=== PATIENT | male | born 1965 | race Caucasian/White ===

== ENCOUNTER 2022-02-28 05:51 | Inpatient (IN) ==
--- NOTE | 2022-02-14 15:44 | PAT Medication Instructions ---
Medication Instructions Date of Service February 14, 2022 Home Medications amlodipine 10 mg tablet 10 mg PO QAM atorvastatin 80 mg tablet 80 mg PO PM clopidogrel 75 mg tablet 75 mg PO QAM metoprolol tartrate 25 mg tablet 25 mg PO BID pantoprazole 40 mg tablet,delayed release 40 mg PO QAM potassium chloride 20 mEq tablet,extended release 20 meq PO QPM ASK your prescriber and surgeon clopidogrel 75 mg tablet 75 mg PO QAM Take morning of surgery With a small sip of water, OTHERWISE NOTHING TO EAT OR DRINK AFTER MIDNIGHT: amlodipine 10 mg tablet 10 mg PO QAM metoprolol tartrate 25 mg tablet 25 mg PO BID pantoprazole 40 mg tablet,delayed release 40 mg PO QAM Take evening before surgery atorvastatin 80 mg tablet 80 mg PO PM metoprolol tartrate 25 mg tablet 25 mg PO BID potassium chloride 20 mEq tablet,extended release 20 meq PO QPM Other Notes If you have any questions please call us at [phone] or [phone] or [phone] or [phone]
--- NOTE | 2022-02-22 14:26 | Anesthesiology Consultation ---
Date of Service February 22, 2022 Assessment & Plan (1) Encounter for pre-operative examination: - COVID screening: Per assessment on 02/22: No known COVID-19 positive contacts or current COVID-19 related symptoms. Travel screen negative. At surgeon discretion if preop Covid testing being done. - Cardiology office visit (01/24/22): "Coronary artery disease.. ANDREY on 09/21/2013 and distal LAD 2 stents.. ANDREY on 03/20/2017.. Peripheral arterial disease with worsening claudication S/P BUSINESS ANALYST CONSULTANT/stent to left common iliac artery on 04/18/17 and BUSINESS ANALYST CONSULTANT to right common iliac and external iliac arteries on 11/23/17. Balloon angioplasty to the ostium of the left superficial femoral artery 02-22-18. Now with occluded distal abdominal aorta and bilateral iliacs, being evaluated for aortic bifemoral bypass surgery.. Considered at a low to intermediate cardiac risk for aortobifemoral bypass surgery" - Plavix instructions per surgeon/cardio Chart Review Chart Review: Acceptable Risk for Surgery and Patient seen in Pre Admission Testing Teaching & Discussion Pre-Anesthesia Teaching/Discussion Notes: Instructed NPO after midnight before surgery,except medications with 15 cc of water. Medication instructions provided according to the PAT guidelines. History Surgery Operation Date: 02/28/22 08:00 Proposed Procedures p Aorto Bifemoral Bypass - Joey Pennington MD Height/Weight Height: 5 ft 8 in Weight: 68.4 kg Allergies Allergy/AdvReac Type Severity Reaction Status Date / Time No Known Allergies Allergy Verified 02/13/22 13:53 Medications Home Medications Medication Instructions Recorded Confirmed Last Taken amlodipine 10 mg tablet 10 mg PO QAM 02/13/22 02/13/22 Unknown atorvastatin 80 mg tablet 80 mg PO PM 02/13/22 02/13/22 Unknown clopidogrel 75 mg tablet 75 mg PO QAM 02/13/22 02/13/22 Unknown metoprolol tartrate 25 mg tablet 25 mg PO BID 02/13/22 02/13/22 Unknown pantoprazole 40 mg tablet,delayed 40 mg PO QAM 02/13/22 02/13/22 Unknown release potassium chloride 20 mEq 20 meq PO QPM 02/13/22 02/13/22 Unknown tablet,extended release Past Medical History Medical History CAD (coronary artery disease) 2014 > 1 stent 2018 (LITZY Parminder) > [address] Morin COPD (chronic obstructive pulmonary disease) Stable History of depression History of gastric ulcer 2013 History of GI bleed 2013 (ASA/gastric ulcer) History of myocardial infarction 2014 HLD (hyperlipidemia) HTN (hypertension) Lung abnormality "spots on lungs" noted years ago, monitored/evaluated by [facility] (under surveillance/stable) PAD (peripheral artery disease) Exercise / Class Metabolic Activity III < 4 Walking/Shop/Light housework Past Family History Family History Other No family history of adverse response to anesthesia Past Surgical History Surgical History History of cardiac catheterization 2013 > 1 stent 2017 (LITZY Parminder) > 2 stents History of esophagogastroduodenoscopy (EGD) History of laparotomy History of revascularization procedure of lower extremity stents to BLLE Social History Smoking Status: Current every day smoker tobacco type: cigarettes Smoking cigarettes per day: 1 ppd Do You Dip or Chew Tobacco: No Hx Alcohol Use: No Hx Substance Use: No substance use type: does not use Review of Systems Patient denies chest pain, shortness of breath, fever, chills, cough, wheezing, palpitations. Physical Exam Vital Signs VITALS BP 135/77 P 92 TEMP 98.5 SP02 95%RA RESP 18 PHYSICAL Full cervical extension range of motion. Full TMJ range of motion. TMD 4 finger breaths Mallampati Score 3 Dentition: several missing Lungs: clear throughout to auscultation Cardiac: regular rate and rhythm, no murmurs noted Spine: normal Carotid arteries: negative bruit Extremities: no edema Large celeste - pt agreeable to trimming, aware further trimming/shaving may be necessary DOS at anesthesiologist discretion Lab Results Anesthesia Preop Results Results Anesthesia Widget: WBC 13.51 K/ul (4.8-10.8) H 02/22/22 Hgb 17.3 g/dl (14.0-18.0) 02/22/22 Hct 49.3 % (40.1-51.0) 02/22/22 Plt 281 K/uL (130-400) 02/22/22 Na 139 mmol/L (136-145) 02/22/22 K 3.6 mmol/L (3.5-5.1) 02/22/22 Cl 104 mmol/L (98-107) 02/22/22 CO2 28 mmol/L (21-32) 02/22/22 BUN 17 mg/dl (6-23) 02/22/22 Creat 0.96 mg/dl (0.6-1.4) 02/22/22 Glucose Level 116 mg/dl (70-99(Fasting)) H 02/22/22 PT 10.1 Seconds (9.0-12.0) 02/22/22 PTT 28.5 Seconds (21.0-31.0) 02/22/22 INR 0.9 (0.9-1.1) 02/22/22 Blood Type O Positive 02/22/22 Antibody Screen NEGATIVE 02/22/22 Testing Electrocardiogram Date: 01/24/22 Sinus rhythm at 95 bpm. Anterior septal infarct. Possible inferior infarct. Chest X-Ray Date: 02/22/22 FINDINGS: No lines and tubes are seen. The cardiomediastinal silhouette is normal. The lungs are clear. No evidence of pleural effusion or pneumothorax. IMPRESSION: No acute chest disease. Echocardiogram Date: 12/13/21 LVEF 60%. Mild cLVH. Severe LAD. Mild TR. Physiologic MI. Stress Test Date: 12/13/21 Type: nuclear Lexiscan stress ECG was inconclusive for myocardial ischemia. No evidence of myocardial ischemia or infarction. LVEF 56%. Other Testing 24 Hour Holter monitor (09/19/21) Rare PAC. Frequent PVCs. No SVT. Sinus tachycardia. No bradycardia, pauses greater than 2 seconds, or high-grade AV block. Nondiagnostic for symptom correlation. Carotid duplex (09/29/21) No hemodynamically significant stenosis seen within either carotid bifurcation region or either proximal ICA. Abdominal aortography (12/13/21) Known right common iliac artery, external iliac artery chronic occlusion constriction of the distal right external iliac artery. Left mid common iliac artery chronic occlusion. Noted to have abdominal aorta 100% chronic occlusion just after the origin of the bilateral renal arteries. Right renal artery has ostial 90% stenosis. Patent left renal artery noted. Recommendation: Recommend to see vascular surgery for evaluation of abdominal aorta occlusion and also iliac artery occlusions. COVID-19 Risk Screen Screening Information COVID-19 Screen Date: 02/22/22 Exposure 21 Days Family/Household +COVID Last 21 Days: No Exposure 10 Days Any COVID Exposure Last 10 Days: No Symptoms Last 10 Days Experienced COVID Sx Last 10 Days: No + COVID 0-90 Days COVID + in Last 0-90 Days: No
[2022-02-28] MEDS ORDERED: CEFAZOLIN 2,000 MG/15 ML SYR IV SCH (06:00)
--- NOTE | 2022-02-28 06:17 | History & Physical Report ---
Date of Service February 28, 2022 Assessment & Plan (1) Terminal aortic occlusion: Plan: Patient is admitted for an aortobifemoral bypass. I have discussed the risks options and benefits of the procedure with the patient. The patient understands the risks options and benefits and agrees to the procedure. History of Present Illness Chief Complaint: Infra renal aortic occlusion Primary Care Provider: NO PCP Mr. Saha is a middle-aged male who presents to Dr. Pennington's vascular surgery clinic today as a new patient in consultation for aortoiliac occlusive disease. Patient states that he has been aware of significant arterial disease since 2018, at which time he underwent angiography with DIDACTIC INSTRUCTOR somewhere in his right lower extremity. Records of this are not available. He states he was able to function after this until earlier this year when he began to notice worsening claudication symptoms particularly in his hips and thighs, as well as numbness. He states at this point on an incline he is only able to walk about 75 feet, and is able to walk further on a flat surface. He finds that this is extremely limiting for his activity level. He has seen his account management specialist who had him undergo angiography, which was unsuccessful in crossing the lesions. He was noted to have complete occlusion of his distal aorta and bilateral iliac arteries, with distal reconstitution. Patient denies rest pain in his feet and toes, as well as any ulcerations or nonhealing wounds on his feet. He denies fever, recent illness, headache, dizziness, chest pain, shortness of breath, abdominal pain, nausea, vomiting, other complaints. Allergies Allergy/AdvReac Type Severity Reaction Status Date / Time No Known Allergies Allergy Verified 02/13/22 13:53 Home Medications Medication Instructions Recorded Confirmed Type amlodipine 10 mg tablet 10 mg PO QAM 02/13/22 02/13/22 History atorvastatin 80 mg tablet 80 mg PO PM 02/13/22 02/13/22 History clopidogrel 75 mg tablet 75 mg PO QAM 02/13/22 02/13/22 History metoprolol tartrate 25 mg tablet 25 mg PO BID 02/13/22 02/13/22 History pantoprazole 40 mg tablet,delayed 40 mg PO QAM 02/13/22 02/13/22 History release potassium chloride 20 mEq 20 meq PO QPM 02/13/22 02/13/22 History tablet,extended release Past Med/Surg History Medical History CAD (coronary artery disease) 2014 > 1 stent 2018 (LITZY Parminder) > [address] Morin COPD (chronic obstructive pulmonary disease) Stable History of depression History of gastric ulcer 2012 History of GI bleed 2013 (ASA/gastric ulcer) History of myocardial infarction 2013 HLD (hyperlipidemia) HTN (hypertension) Lung abnormality "spots on lungs" noted years ago, monitored/evaluated by [facility] (under surveillance/stable) PAD (peripheral artery disease) Surgical History History of cardiac catheterization 2013 > 1 stent 2018 (LITZY Parminder) > 2 stents History of esophagogastroduodenoscopy (EGD) History of laparotomy History of revascularization procedure of lower extremity stents to BLLE Family History Other No family history of adverse response to anesthesia Social History Smoking Status: Current every day smoker Cigarettes Per Day: 1 ppd; Second Hand Exposure: Yes (hx); Do You Dip or Chew Tobacco: No; Tobacco Cessation Education Requested by Patient: No Hx Alcohol Use: No Hx Substance Use: No Preferred Language: Slovenian Communication Ability: Effective 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 Is alert and oriented without any focal deficits. His head is normocephalic and atraumatic. His carotids do not demonstrate a bruit. His heart is regular, his lungs are decreased but clear with coarse breath sounds. His abdomen is protuberant due to body habitus, but is firm and nontender. His brachial and radial pulses are +3. His femoral pulses are nonpalpable, his lower extremity distal pulses are also nonpalpable. He has capillary refill to the toes at 5 to 6 seconds, with continued hair growth on the dorsum of the feet and toes. There were no ulcerations.
[2022-02-28] MEDS ORDERED: HEPARIN (PORCINE) 1000 UNIT/ML 10 ML (CATH LAB USE ONLY) ONE ×2 (07:06→08:48)
[2022-02-28] MEDS ORDERED: THROMBIN FOR SOLN 20000 UNIT KIT ONE (07:06)
[2022-02-28] MEDS ORDERED: GELATIN SPONGE SZ 100 ONE (07:06)
[2022-02-28] MEDS ORDERED: ceFAZolin 330 MG/ML 1 GM VIAL ONE (07:06)
[2022-02-28] MEDS ORDERED: HYDROmorphone INJ 1 MG/ML SYRINGE IV PRN (07:07)
[2022-02-28] MEDS ORDERED: KETOROLAC 30 MG/ML VIAL IV PRN (07:07)
[2022-02-28] MEDS ORDERED: ONDANSETRON INJ 2 MG/ML 2 ML VIAL IV PRN ×2 (07:07→09:57)
[2022-02-28] MEDS ORDERED: LABETALOL HCL IV 5 MG/ML 20ML IV PRN (07:07)
[2022-02-28] MEDS ORDERED: ATROPINE SULFATE 0.1 MG/ML 10ML SYR IV PRN (07:07)
[2022-02-28] MEDS ORDERED: ePHEDrine sulfate 50 MG/ML AMP IV PRN (07:07)
[2022-02-28] MEDS ORDERED: ACETAMINOPHEN 1000 MG/100 ML IV IV ONE (07:15)
[2022-02-28] MEDS ORDERED: MIDAZOLAM HCL 1 MG/ML 2ML VIAL ONE (07:26)
[2022-02-28] MEDS ORDERED: fentaNYL citrate 100 MCG/2 ML VIAL ONE ×2 (07:26→08:46)
--- NOTE | 2022-02-28 07:36 | History & Physical Bridge Note ---
Date of Service February 28, 2022 History & Physical Bridge Note I have examined the patient, reviewed the History & Physical and in the interval since the performance of the History & Physical I have noted the following changes of clinical significance: no changes noted
[2022-02-28] MEDS ORDERED: DEXAMETHASONE SOD INJ 4 MG/ML VIAL ONE (09:21)
[2022-02-28] MEDS ORDERED: ONDANSETRON INJ 2 MG/ML 2 ML VIAL ONE (09:21)
[2022-02-28] MEDS ORDERED: LIDOCAINE 2% MPF LOCAL 5 ML VIAL INFIL ONE (09:21)
[2022-02-28] MEDS ORDERED: PHENYLEPHRINE HCL 10 MG/ML VIAL ONE (09:21)
[2022-02-28] MEDS ORDERED: NITROGLYCERIN/D5W 100 MCG/ML BTL ONE (09:21)
[2022-02-28] MEDS ORDERED: PROPOFOL IV EMULSION 10 MG/ML 20 ML VIAL IV ONE (09:21)
[2022-02-28] MEDS ORDERED: ROCURONIUM BROMIDE 10 MG/ML 5 ML VIAL IV ONE (09:21)
[2022-02-28] MEDS ORDERED: HEPARIN SOD (PORCINE) 1000 UNIT/ML ONE (09:22)
[2022-02-28] MEDS ORDERED: oxyCODONE/ACETAMINOPHEN 5mg/325mg TAB PO PRN (09:57)
--- NOTE | 2022-02-28 10:03 | Post Operative Brief Note ---
Immediate Post Op Note v1 Date of Surgery February 28, 2022 Pre & Post Diagnosis Operation Date: 02/28/22 08:00 Pre-Op Diagnosis: (1) Terminal aortic occlusion Post-Op Diagnosis: (1) Terminal aortic occlusion I identified the patient and participated in the time-out.: Yes Procedure Operation Date: 02/28/22 08:00 Actual Procedures p Exploratory Laparotomy(Not Applicable) - Joey Pennington MD Surgeon Joey Pennington MD Access Services Librarian MD Juliocesar L.Minarchick,PAC Estimated Blood Loss 20 Findings Consistent with Post-Op Diagnosis Drains Spivey Catheter Anesthesia Type General Complications none Disposition Accompanied Patient To Recovery: No Disposition: Recovery Room
[2022-02-28] MEDS ORDERED: HYDROmorphone INJ 2 MG/ML SYR/VIAL ONE ×2 (10:14→10:19)
--- NOTE | 2022-02-28 11:50 | Anesthesiology Progress Note ---
Date of Service February 28, 2022 Anesthesia Post Procedure Vital Signs Vital Signs: Temp Pulse Resp BP BP BP Pulse Ox 02/28/22 11:35 87 13 145/66 H 146/83 H 90 02/28/22 11:25 87 17 143/66 H 142/83 H 90 02/28/22 11:15 87 18 151/70 H 149/87 H 92 02/28/22 11:05 88 11 L 157/73 H 145/85 H 91 02/28/22 10:55 87 11 L 160/72 H 141/85 H 90 02/28/22 10:45 87 13 146/69 H 146/69 H 92 02/28/22 10:35 87 17 171/73 H 169/87 H 95 02/28/22 10:25 90 16 180/77 H 174/98 H 94 02/28/22 10:18 36.5 C 94 H 21 175/75 H 187/92 H 95 02/28/22 06:30 36.8 C 90 20 158/92 H 161/97 H 94 O2 Del Method O2 Flow Rate 02/28/22 11:35 Nasal Cannula 4 02/28/22 11:25 Nasal Cannula 4 02/28/22 11:15 Nasal Cannula 6 02/28/22 11:05 Nasal Cannula 6 02/28/22 10:55 Oxymask 6 02/28/22 10:45 Oxymask 6 02/28/22 10:35 Oxymask 15 02/28/22 10:25 Oxymask 15 02/28/22 10:18 Oxymask 15 02/28/22 06:30 Room Air Pain Intensity Abdomen: Pain Intensity: 9 Transfer of Care Handoff Completed per policy Notes Mental Status: alert / awake / arousable Patient Amnestic to Procedure: Yes Nausea / Vomiting: adequately controlled Pain: adequately controlled Airway Patency, RR, SpO2: stable & adequate BP & HR: stable & adequate Hydration State: stable & adequate Anesthetic Complications: no major complications apparent
[2022-02-28] MEDS ORDERED: LACTATED RINGER'S 1,000 ML IV SCH (13:15)
[2022-02-28] MEDS: ceFAZolin 2000MG 2,000 MG/15 ML SYR IV SCH ×2 (17:23→19:54)
[2022-02-28] MEDS: MoRPHine SULFATE 4 MG/ML 1 ML CARP\\VIAL IV PRN ×2 (17:41→20:00)
[2022-02-28] MEDS: D5W AND 1/2NSS 1,000 ML IV SCH ×2 (18:42→18:43)
[2022-02-28] MEDS: NICOTINE 21 MG/24 HR TDSY TD SCH (19:54)
[2022-03-01] MEDS: D5W AND 1/2NSS 1,000 ML IV SCH ×3 (02:46→17:00)
[2022-03-01] MEDS: NICOTINE 21 MG/24 HR TDSY TD SCH (09:41)
[2022-03-01] MEDS: MoRPHine SULFATE 4 MG/ML 1 ML CARP\\VIAL IV PRN ×3 (09:43→20:56)
--- NOTE | 2022-03-01 16:08 | Surgery Progress Note ---
Date of Service March 01, 2022 Assessment & Plan (1) S/P exploratory laparotomy: Plan: Patient doing well post ex lap. Will start suppressive antibiotic therapy. Will switch to a low na, full liquid diet to help with swallowing. Will d/c once tolerating reg diet and incisional pain controlled. Admission and Anticipated Discharge Date Admission Date: February 28, 2022 Subjective Patient up and sitting in chair. Complains of sore throat and cramping of abd wall muscles. Has difficulty swallowing secondary to his sore throat. Physical Exam Constitutional: WD/WN, vitals as above Respiratory: normal respiratory effort; no respiratory distress Auscultation: lungs clear to auscultation bilaterally Cardiovascular: RRR, no murmur, no edema Extremities: + abnormal capillary refill (decreased) Gastrointestinal (Abdomen): Inspection/Auscultation: + abdomen distended (but appears baseline) Percussion/Palpation: + abdomen tender and abdomen soft Musculoskeletal: no cyanosis or clubbing, extremities motor strength 5/5 Skin: + incision (dressing intact) Neurologic: CN's II-XI intact bilaterally and moves all extremities Psychiatric: Orientation: alert and oriented x 3 Results & Data ([facility]) Vital Signs (Past 12 Hours) Vital Signs Temp Pulse Resp BP Pulse Ox O2 Del Method O2 Flow Rate 03/01/22 15:30 36.9 C 123 H 18 169/84 H 91 Nasal Cannula 2 03/01/22 10:14 36.8 C 106 H 16 154/79 H 93 Oxymask 2 03/01/22 07:47 Oxymask 4 03/01/22 06:55 36.9 C 105 H 16 161/82 H 94 Oxymask 4
[2022-03-01] MEDS: SULFAMETHOXAZOLE/TRIMETHOPRIM DS 800/160MG TAB PO SCH (21:03)
[2022-03-02] MEDS: D5W AND 1/2NSS 1,000 ML IV SCH ×2 (00:29→08:15)
[2022-03-02] MEDS: MoRPHine SULFATE 4 MG/ML 1 ML CARP\\VIAL IV PRN ×2 (03:09→05:19)
[2022-03-02] MEDS ORDERED: FUROSEMIDE INJ 20 MG/2 ML VIAL IV STA (08:01)
[2022-03-02] MEDS: SULFAMETHOXAZOLE/TRIMETHOPRIM DS 800/160MG TAB PO SCH (08:15)
[2022-03-02] MEDS: NICOTINE 21 MG/24 HR TDSY TD SCH (08:15)
[2022-03-02 09:00] LABS: Calcium 8.1 mg/dl (8.5-10.1); Creatinine Clr Calc Pharmacy 98.6 ml/min; Est GFR (African American) 114.9 ml/min; Est GFR (Non-African American) 99.2 ml/min; Magnesium 1.3 mg/dl (1.7-2.4); Phosphorus 3.1 mg/dl (2.5-4.9); Potassium 3.1 mmol/L (3.5-5.1)
[2022-03-02] MEDS ORDERED: traMADol HCL 50 MG TABLET PO PRN (09:10)
[2022-03-02 09:42] LABS: Hematocrit (blood only) 46.4 % (40.1-51.0); Mean Corpuscular Hemoglobin 28.9 pg (25.0-34.0); Mean Corpuscular Hgb Conc 34.5 g/dL (32.0-36.0); Mean Corpuscular Volume 83.8 fL (80.0-100.0); Mean Platelet Volume 10.8 fL (9.4-12.4); Platelet Count 209 K/uL (130-400); RDW Coefficient of Variation 14.3 % (11.5-14.5); RDW Standard Deviation 43.6 fL (36.4-46.3); Red Blood Count 5.54 M/uL (4.63-6.08); White Blood Count 24.65 K/ul (4.8-10.8)
[2022-03-02] MEDS ORDERED: POTASSIUM CHLORIDE / WTR 10 MEQ/100 ML PLCT IV ONE (09:44)
[2022-03-02] MEDS ORDERED: POTASSIUM CHLORIDE CRTAB 20 MEQ TABCR PO STA (09:44)
[2022-03-02] MEDS: MAGNESIUM SULFATE / D5W 1 GM/100 ML BAG IV SCH ×5 (09:56→21:38)
--- NOTE | 2022-03-02 10:03 | XRay Report ---
SINGLE VIEW CHEST CLINICAL HISTORY: Respiratory failure. FINDINGS: An AP, portable, upright chest radiograph is compared to study dated 02/22/2022. The cardiom ediastinal silhouette is top normal for projection. Small pleural effusions are suspected. Airspace o pacities are seen throughout both lungs, most confluent at the lung bases. No pneumothorax is seen. T he skeletal structures are osteopenic. The bony thorax is grossly intact. IMPRESSION: Airspace opacities are seen throughout both lungs, most confluent at the lung bases. This could represent pulmonary edema and/or multifocal pneumonia. Clinical correlation will be required a nd radiographic follow-up to resolution is recommended. ACT 112: Negative or not required by law. Electronically signed by: Orlando Cormier M.D. 03/02/2022 10:02 AM
[2022-03-02] MEDS ORDERED: OPTIRAY 320 500ml IV ONE (10:13)
[2022-03-02 10:14] LABS: Basophils # (auto) 0.04 K/uL (0-0.2); Basophils % (auto) 0.2 %; Echinocytes 2+; Eosinophils # (auto) 0.01 K/uL (0-0.50); Immature Granulocytes # (auto) 0.14 K/uL (0.00-0.02); Immature Granulocytes % (auto) 0.6 %; Lymphocytes # (auto) 0.89 K/uL (1.2-3.4); Lymphocytes % (auto) 3.6 %; Monocytes # (auto) 1.34 K/uL (0.24-0.82); Monocytes % (auto) 5.4 %; Neutrophils # (auto) 22.23 K/uL (1.4-6.5); Neutrophils % (auto) 90.2 %
--- NOTE | 2022-03-02 10:49 | CT Scan Report ---
CHEST CTA for PULMONARY ARTERIES CT DOSE: 491.90 mGy.cm HISTORY: Respiratory failure. Shortness of breath. TECHNIQUE: Multiaxial CT images of the chest were performed following the intravenous administration of contrast to evaluate the pulmonary arteries. Maximal intensity projection images were also obtaine d. A dose lowering technique was utilized adhering to the principles of ALARA. COMPARISON STUDY: None. FINDINGS: Limited views of the upper abdomen demonstrate a normal liver and spleen. Normal esophagus. The thyroid gland enhances normally. No pleural or pericardial effusions. The heart is borderline en larged. A few prominent right hilar lymph nodes measure subcentimeter in short axis diameter. No medi astinal or left hilar lymphadenopathy. No suspicious lytic or blastic osseous lesions. Normal caliber thoracic aorta with no evidence for a dissection. Nondiagnostic evaluation within the majority of th e segmental and subsegmental pulmonary arteries due to the respiratory motion artifact. Otherwise, no definite filling defects within the remaining pulmonary arteries to suggest a pulmonary embolus. No pneumothorax. The central airways are patent. Areas of dense consolidation within the base the right middle lobe and right lower lobe. There are patchy consolidative airspace opacities within the base o f the left lower lobe. There are upper lobe predominant groundglass airspace opacities with interlobu lar septal thickening demonstrating crazy paving pattern. IMPRESSION: 1. No evidence for a pulmonary embolus with limitations as described above. 2. Bibasilar consolidative airspace opacities most pronounced within the right lung may represent a c ombination of atelectasis and pneumonia. 3. Upper lobe predominant groundglass airspace opacities with interstitial thickening demonstrating a crazy paving pattern. This could be due to pulmonary edema/ARDS, an atypical pneumonia, or pulmonary hemorrhage. ACT 112: Negative or not required by law. Electronically signed by: Enoch Santiago M.D. 03/02/2022 10:47 AM
[2022-03-02] MEDS ORDERED: IPRATROPIUM BROMIDE NEB SOLN 0.02% 2.5 ML VIAL NEB STA (11:01)
--- NOTE | 2022-03-02 11:01 | Consultation ---
Date of Consultation March 02, 2022 Assessment & Plan (1) Acute respiratory failure with hypoxia: CXR & CTA chest reviewed. Diffuse b/l infiltrates - acute pulmonary edema vs b/l pneumonia (e.g. aspiration) vs ARDS vs combination of factors. No obvious PE although images were suboptimal. Diurese. Zosyn x 1 now; obtain blood cultures prior. Defer ongoing IV abx selection to ICU attending. CPAP. Supportive care. Tx to ICU for ongoing care. Appreciate ICU support. s/p lasix this am; defer additional doses to ICU attending. Check ABG. Check lactate. Check procalcitonin, blood cultures. Tx to ICU. care d/w Dr Vicente. (2) Acute pulmonary edema: acute diastolic CHF. had echo 12/13/21 through [facility] (see scanned report) showing EF 60% with normal valve function. he has already diuresed very nicely - 1500cc+ of urine with lasix 20mg IV x 1. defer additional diuresis to ICU attending. consider limited echo to recheck LV function. (3) Sepsis: suspected 2nd to pneumonia blood cx's now broad-spectrum IV antibiotics (4) S/P exploratory laparotomy: POD #[address] Pennington. ex lap done due to occluded aorta. (5) Hypokalemia: replace IV + PO serial labs replace low mag (6) Hypomagnesemia: mag sulfate 3gm x 1 now serial labs (7) Tachycardia: sinus 2nd to acute respiratory failure no evidence of PEs H/H stable (8) CAD (coronary artery disease): Lexiscan [facility]see scanned documents) was negative for myocardial ischemia. Check HS trop now. EKG w/o ischemic changes. (9) COPD (chronic obstructive pulmonary disease): consider steroid therapy but defer to ICU attending cont bronchodilators some of the wheezing could be pulmonary edema as well (10) HTN (hypertension): consider IV hydralazine or IV metoprolol (11) History of myocardial infarction: noted checking HS troponin typically on statin, plavix, metoprolol resume these when able to take PO (12) History of gastric ulcer: IV pepcid or PPI (13) Aortic occlusion: Defer management to primary vascular surgery team. (14) Abdominal distension: ileus? other? start with KUB x-ray now Plan patient is critically ill; transfer to ICU care d/w Dr Josep Vicente, ICU attending total critical care time 60 minutes - management of resp failure, sepsis, etc. History of Present Illness Requesting Physician: Joey Pennington MD Reason for Consultation: hypoxia, tachycardia Attending Physician: Joey Pennington MD History of Present Illness 56yo male with history of CAD s/p acute OK and stent placement, COPD, ongoing tobacco dependence, PAD, HTN, hyperlipidemia, and occluded aorta who presented on 02/28/22 for exploratory laparotomy by Dr Pennington. On POD #1 he reports having had abdominal distension with lack of flatus. He also noted a mild cough which had actually started on the day of surgery. Overnight last pm his cough worsened and this am he developed hypoxia with some dyspnea. He has had poor PO intake/appetite since his surgery. Denies fevers or chills. Denies myalgias. He has had nausea but no vomiting. This am it was noted that his HRs were getting worse and that he was hypoxia to the upper 80s. NC O2 was applied and by the time of my bedside assessment he was satting 88% on 10 L via oxymask. He denied any chest pain. He finds it difficult to breath due to his abdominal pain. He is wheezing. Reports he has smoked 1+ PPD of cigarettes for over 45 years. None of his symptoms remind him of his previous OK. Just prior to my assessment he had received IV lasix 20mg x 1 and just came back from radiology where he underwent CTA chest. He had 500cc of UOP with lasix. Beebe was placed, and within 30 minutes had produced another 1200-1300cc of urine. I ordered CXR which showed diffuse alveolar and interstitial infiltrates. CTA with diffuse b/l infiltrates as well but no obvious PE. I asked respiratory team to place him on CPAP and give atrovent neb x 1. Following CPAP his respiratory distress improved. Allergies Allergy/AdvReac Type Severity Reaction Status Date / Time No Known Allergies Allergy Verified 02/28/22 06:33 Home Medications Medication Instructions Recorded Confirmed Type amlodipine 10 mg tablet 10 mg PO QAM 02/13/22 02/28/22 History atorvastatin 80 mg tablet 80 mg PO PM 02/13/22 02/28/22 History clopidogrel 75 mg tablet 75 mg PO QAM 02/13/22 02/28/22 History metoprolol tartrate 25 mg tablet 25 mg PO BID 02/13/22 02/28/22 History pantoprazole 40 mg tablet,delayed 40 mg PO QAM 02/13/22 02/28/22 History release potassium chloride 20 mEq 20 meq PO QPM 02/13/22 02/28/22 History tablet,extended release ezetimibe 10 mg tablet 10 mg PO DAILY 02/28/22 02/28/22 History nitroglycerin 0.4 mg sublingual 0.4 mg sublingual UD PRN Chest Pain 02/28/22 02/28/22 History tablet (Nitrostat) Patient History Medical History CAD (coronary artery disease) 2014 > 1 stent 2017 ([facility]) > [address] Morin COPD (chronic obstructive pulmonary disease) Stable Emphysema lung History of depression History of gastric ulcer 2012 History of GI bleed 2012 (ASA/gastric ulcer) History of myocardial infarction 2013 HLD (hyperlipidemia) HTN (hypertension) Lung abnormality "spots on lungs" noted years ago, monitored/evaluated by [facility] (under surveillance/stable) PAD (peripheral artery disease) Surgical History History of cardiac catheterization 2013 > 1 stent 2017 ([facility]) > 2 stents History of esophagogastroduodenoscopy (EGD) History of laparotomy History of revascularization procedure of lower extremity stents to BLLE Family History Other No family history of adverse response to anesthesia Social History Smoking Status: Current every day smoker Cigarettes Per Day: 1 ppd; Second Hand Exposure: Yes (hx); Do You Dip or Chew Tobacco: No; Tobacco Cessation Education Requested by Patient: No Hx Alcohol Use: No Hx Substance Use: No Preferred Language: Turkmen Communication Ability: Effective Educational Therapy Teacher Required: No Beliefs That Will Affect Care: None Current Living Situation: Alone Feels Safe at Home: Yes Safety Concerns: Feels Safe At This Time Assistive Devices: None Review of Systems Review of Systems: gen - fatigue, weak, poor appetite; no fever HENT - no sore throat neck - no pain CV - no chest pain pulm - cough, dyspnea, pleuritic type pain GI - severe pain especially with coughing; mild nausea; not passing flatus; distended - beebe removed, was voiding musculo - no myalgias neuro - no headache endo - no diabetes Physical Exam Physical Exam: gen - respiratory distress with tachypnea, coughing, retra ctions; looks quite ill eyes - PERRL HENT - mouth with MMM, poor dentition neck - JVD present, no masses heart - tachycardic, s1 s2, no murmur lungs - diffuse crackles, diffuse wheezes, tachypnea, retractions, accessory muscle use abd - distended, BS+ but decreased, tender, dressings intact over abd wall ext - cool to touch, pulses both feet <1+ b/l neuro - no focal deficits, no facial droop, speech clear, strength 5/5 upper/lower ext skin - perspiring, no rash psych - anxious Results & Data ([facility]) Vital Signs (Past 12 Hours) Vital Signs Temp Pulse Resp BP Pulse Ox O2 Del Method O2 Flow Rate 03/02/22 10:43 88 L Oxymask 8 03/02/22 10:35 37.2 C 141 H 18 151/81 H 85 L Nasal Cannula 6 03/02/22 08:31 Oxymask 5 03/02/22 08:04 139 H 90 Oxymask 5 03/02/22 07:47 37 C 148 H 18 163/78 H 88 L Oxymask 5 03/02/22 05:00 133 H 18 139/76 Oxymask 5 Laboratory Results Laboratory Results - last 24 hr 03/02/22 03/02/22 08:11 08:11 WBC 24.65 H RBC 5.54 Hgb 16.0 Hct 46.4 MCV 83.8 MCH 28.9 MCHC 34.5 RDW Std Deviation 43.6 RDW Coeff of Sondra 14.3 Plt Count 209 MPV 10.8 Immature Gran % (Auto) 0.6 Neut % (Auto) 90.2 Lymph % (Auto) 3.6 Willacy % (Auto) 5.4 Eos % (Auto) 0.0 Baso % (Auto) 0.2 Neut # (Auto) 22.23 H Lymph # (Auto) 0.89 L Willacy # (Auto) 1.34 H Eos # (Auto) 0.01 Baso # (Auto) 0.04 Immature Gran # (Auto) 0.14 H Echinocytes 2+ PT INR APTT PTT Ratio Fibrinogen ABG pH ABG pCO2 ABG pO2 ABG HCO3 ABG O2 Saturation ABG Base Excess Grant Test Oxygen Given Sodium 134 L Potassium 3.1 L Chloride 98 Carbon Dioxide 29 Anion Gap 7 BUN 8 Creatinine 0.80 Est Cr Clr Drug Dosing 98.6 Est GFR ( Amer) 114.9 Est GFR (Non-Af Amer) 99.2 BUN/Creatinine Ratio 10.0 Glucose 167 H POC Glucose Lactate Calcium 8.1 L Ionized Calcium Phosphorus 3.1 Magnesium 1.3 L Total Bilirubin Direct Bilirubin AST ALT Alkaline Phosphatase Troponin I High Sens B-Natriuretic Peptide Total Protein Albumin Procalcitonin Crossmatch 03/02/22 03/02/22 03/02/22 11:17 11:17 11:17 WBC RBC Hgb Hct MCV MCH MCHC RDW Std Deviation RDW Coeff of Sondra Plt Count MPV Immature Gran % (Auto) Neut % (Auto) Lymph % (Auto) Willacy % (Auto) Eos % (Auto) Baso % (Auto) Neut # (Auto) Lymph # (Auto) Willacy # (Auto) Eos # (Auto) Baso # (Auto) Immature Gran # (Auto) Echinocytes PT INR APTT PTT Ratio Fibrinogen ABG pH 7.46 H ABG pCO2 42 ABG pO2 167 H ABG HCO3 30 H ABG O2 Saturation 99.8 H ABG Base Excess 5.4 H Grant Test Pos Oxygen Given 10 L Sodium Potassium Chloride Carbon Dioxide Anion Gap BUN Creatinine Est Cr Clr Drug Dosing Est GFR ( Amer) Est GFR (Non-Af Amer) BUN/Creatinine Ratio Glucose POC Glucose Lactate 1.9 Calcium Ionized Calcium Phosphorus Magnesium Total Bilirubin Direct Bilirubin AST ALT Alkaline Phosphatase Troponin I High Sens 11.6 B-Natriuretic Peptide Total Protein Albumin Procalcitonin Crossmatch 03/02/22 03/02/22 03/02/22 11:17 11:17 12:34 WBC RBC Hgb Hct MCV MCH MCHC RDW Std Deviation RDW Coeff of Sondra Plt Count MPV Immature Gran % (Auto) Neut % (Auto) Lymph % (Auto) Willacy % (Auto) Eos % (Auto) Baso % (Auto) Neut # (Auto) Lymph # (Auto) Willacy # (Auto) Eos # (Auto) Baso # (Auto) Immature Gran # (Auto) Echinocytes PT INR APTT PTT Ratio Fibrinogen ABG pH ABG pCO2 ABG pO2 ABG HCO3 ABG O2 Saturation ABG Base Excess Grant Test Oxygen Given Sodium Potassium Chloride Carbon Dioxide Anion Gap BUN Creatinine Est Cr Clr Drug Dosing Est GFR ( Amer) Est GFR (Non-Af Amer) BUN/Creatinine Ratio Glucose POC Glucose Lactate Calcium Ionized Calcium 1.05 L Phosphorus Magnesium Total Bilirubin Direct Bilirubin AST ALT Alkaline Phosphatase Troponin I High Sens B-Natriuretic Peptide 68 Total Protein Albumin Procalcitonin 0.51 H Crossmatch 03/02/22 03/02/22 12:34 12:34 WBC RBC Hgb Hct MCV MCH MCHC RDW Std Deviation RDW Coeff of Sondra Plt Count MPV Immature Gran % (Auto) Neut % (Auto) Lymph % (Auto) Willacy % (Auto) Eos % (Auto) Baso % (Auto) Neut # (Auto) Lymph # (Auto) Willacy # (Auto) Eos # (Auto) Baso # (Auto) Immature Gran # (Auto) Echinocytes PT 11.9 INR 1.1 APTT 29.9 PTT Ratio 1.1 Fibrinogen 706 H ABG pH ABG pCO2 ABG pO2 ABG HCO3 ABG O2 Saturation ABG Base Excess Grant Test Oxygen Given Sodium Potassium Chloride Carbon Dioxide Anion Gap BUN Creatinine Est Cr Clr Drug Dosing Est GFR ( Amer) Est GFR (Non-Af Amer) BUN/Creatinine Ratio Glucose POC Glucose Lactate Calcium Ionized Calcium Phosphorus Magnesium Total Bilirubin 1.1 H Direct Bilirubin 0.4 H AST 15 ALT 6 L Alkaline Phosphatase 103 Troponin I High Sens B-Natriuretic Peptide Total Protein 6.8 Albumin 3.4 Procalcitonin Crossmatch Diagnostic Findings cxr - my reading - diffuse alveolar and interstitial infiltrates CT chest report - no PEs, but suboptimal for the segmental or subsegmentals, diffuse infiltrates b/l EKG - my reading - sinus tach, no ST changes PG Care Time/CCT Total # of Minutes Spent Total Time Spent with Patient: Total time spent is greater than 50% in coordination of care (as documented) at patient's floor/unit and/or counseling patient: Critical Care Time: Yes Total Critical Care Time: 60 Coding Level of Care Code None Diagnoses Acute respiratory failure with hypoxia J96.01 Acute pulmonary edema J81.0 Sepsis A41.9 S/P exploratory laparotomy Z98.890 Hypokalemia E87.6 Hypomagnesemia E83.42 Tachycardia R00.0 CAD (coronary artery disease) I25.10 COPD (chronic obstructive pulmonary disease) J44.9 HTN (hypertension) I10 History of myocardial infarction I25.2 History of gastric ulcer Z87.11 Aortic occlusion I70.0 Abdominal distension R14.0 Additional Codes Critical Care Time - Critical Care Time: Yes ([id number])
--- NOTE | 2022-03-02 11:34 | Critical Care Consultation ---
Date of Consultation March 02, 2022 Assessment & Plan (1) Sepsis: Pt is a 56 yo male with PMH of AK in 2013 requiring 3 stents, COPD, depression, gastric ulcer w/ subsequent GI bleed, HLD, HTN, and PAD s/p bilateral LE stents presenting to the hospital on 02/28 for an aortobifemoral bypass. Reason critically ill: Pt upgraded to ICU 03/02 d/t tachycardia, increasing oxygen requirement, and sepsis. Neuro: - Pt alert and oriented - No concerns at this time Cardiac: - hx of AK in 2013 s/p 3 stents per pt; takes metoprolol, statin, and clopidogrel at home - hx of significant PAD s/p BL LE stenting - EKGs showed sinus tachycardia w/o concern for ischemia - nuclear stress echo from 12/2021 normal w/ EF 56% - 03/02 echo performed, report pending - tachycardia, most likely secondary to respiratory failure and sepsis - given 5 mg IV lopressor which lowered HR to low 100s - continue to monitor Respiratory: - acute hypoxic respiratory failure - hx of COPD, current every day smoker - CTA and CXR showed pulmonary edema, bibasilar opacities concerning for pneumonia vs. atelectasis, and upper lobe opacities d/t pulmonary edema vs. pneumonia vs. hemorrhage - pt given IV lasix 20 mg w/ considerable diuresis of 700 cc - continue to wean O2 at able GI: NPO diet pending further evaluation of SBO vs. post op ileus Renal/electrolytes: - K 3.1 this AM, given 40 meq PO and 10 meq IV, goal >4.0 - Mg 1.3 this AM, given 3 grams IV, goal >2.0 - Replace electrolytes as needed : - beebe catheter in place Endo: - Follow ICU hyperglycemic protocols Heme: - Stable Hgb and Hct, continue to monitor ID: - pt septic w/ leukocytosis w/ left shift, tachycardia, and concern for intraabdominal infection - concerns for intraabdominal nidus of infection from previous gastric ulcer repair in 2012 - blood and fungal cultures pending - vancomycin started - CTAP w/ contrast pending Lines/IV access: peripheral IV DVT ppx: lovenox 40 mg daily Please refer to Dr. Vicente's documentation for any further recommendations. (2) COPD (chronic obstructive pulmonary disease): (3) S/P exploratory laparotomy: (4) Acute respiratory failure with hypoxia: (5) HTN (hypertension): (6) CAD (coronary artery disease): Supervising Physician Co-Signing Physician Notes Dr. Claire was resident physician during care of patient. I separately evaluated patient for white portions of the history and the exam. I was present during the critical portion of medical decision making, and I discussed the case with the resident. I generally agree with the findings and plan. Patient with SIRS criteria, I am concerned for sepsis secondary to infected foreign body from retained surgical material: Suture from gastric ulcer/exploratory laparotomy in 2012. Dr. Pennington obtain cultures during his ex lap and reported significant amount of adhesions. Patient also significantly at risk for small bowel obstruction versus ileus given recent postop status. Patient was treated with small dose of beta-ratna which improved tachycardia. He does not appear to be significantly volume overloaded during echo. I think it is reasonable to obtain a CT scan of the abdomen pelvis to further evaluate his bowel function and whether there could be a indolent infectious process going on intra-abdominal he. We have started him on broad-spectrum antibiotics Zosyn and vancomycin. I reviewed the CT scan of his lungs, I am suspicious that this is more consistent with atelectasis and chronic COPD changes from ongoing tobacco use and abuse. Continue ongoing cardiac monitoring, echo completed, I observed some findings at the bedside, I do not believe he is significantly volume overloaded, his IVC demonstrate collapsibility and I believe he has normal to hyperdynamic LV function, I am still awaiting the formal echo report. I have personally spent 90 minutes of critical care time in the direct management of this patient. This is a life/limb threatening event. This includes time spent evaluating patient, direct bedside care, chart review, placing orders, interpretation of diagnostic studies, discussion with consultants, patient, and/or family members regarding treatment decisions, as well as other required patient management activities. This time is exclusive of all separately billable procedures, and teaching time and separate from and in addition to any other critical care service time. History of Present Illness Reason for Consultation: tachycardia, increasing O2 requirement Attending Physician: Joey Pennington MD History of Present Illness Pt is a 56 yo male with PMH of AK in 2013 requiring 3 stents, COPD, depression, gastric ulcer w/ subsequent GI bleed, HLD, HTN, and PAD s/p bilateral LE stents presenting to the hospital on 02/28 for an aortobifemoral bypass. An aortobifemoral bypass was unable to be performed d/t concern for infection from previous repair of gastric ulcer. Surgery then proceeded w/ an exploratory laparotomy. Wound samples/cultures from the abdominal infection site are negative for organisms w/ moderate polys. POD 1 he was doing well. He was started on ABX therapy and planned to advance diet as tolerated and control pain before d/c. 03/02: Pt was found to be tachycardic in the 130-140s this morning w/ an increasing oxygen requirement eventually requiring CPAP. Lab work from this morning showed a leukocytosis at 24.65 w/ neutrophilic predominance, mild hyponatremia at 134, hypokalemia at 3.1, and Mg of 1.3. A chest CTA showed bibasilar airspace opacities w/ concern for atelectasis vs. pneumonia; upper lobe opacities were also seen representing pulmonary edema/ARDs vs. pneumonia vs. hemorrhage. CTA neg for PE. CXR confirmed airspace opacities, mostly at lung bases, suggestive of pulmonary edema vs. multifocal pneumonia. KUB suggestive of post op ileus. Additional lab work was obtained showing normal PT/INR and aPTT w/ a high fibrinogen. His ABG showed a metabolic alkalosis, lactate of 1.9, troponin of 11.6, BNP of 68, and procal of 0.51. Pt seen at bedside this afternoon. He describes pain in his abdomen, mostly on the right side. Otherwise he feels alright considering the circumstances. He denies trouble breathing or chest pains. Allergies Allergy/AdvReac Type Severity Reaction Status Date / Time No Known Allergies Allergy Verified 02/28/22 06:33 Home Medications Medication Instructions Recorded Confirmed Type amlodipine 10 mg tablet 10 mg PO QAM 02/13/22 02/28/22 History atorvastatin 80 mg tablet 80 mg PO PM 02/13/22 02/28/22 History clopidogrel 75 mg tablet 75 mg PO QAM 02/13/22 02/28/22 History metoprolol tartrate 25 mg tablet 25 mg PO BID 02/13/22 02/28/22 History pantoprazole 40 mg tablet,delayed 40 mg PO QAM 02/13/22 02/28/22 History release potassium chloride 20 mEq 20 meq PO QPM 02/13/22 02/28/22 History tablet,extended release ezetimibe 10 mg tablet 10 mg PO DAILY 02/28/22 02/28/22 History nitroglycerin 0.4 mg sublingual 0.4 mg sublingual UD PRN Chest Pain 02/28/22 02/28/22 History tablet (Nitrostat) Patient History Medical History CAD (coronary artery disease) 2014 > 1 stent 2018 ([facility]) > [address] Morin COPD (chronic obstructive pulmonary disease) Stable Emphysema lung History of depression History of gastric ulcer 2012 History of GI bleed 2012 (ASA/gastric ulcer) History of myocardial infarction 2013 HLD (hyperlipidemia) HTN (hypertension) Lung abnormality "spots on lungs" noted years ago, monitored/evaluated by [facility] (under surveillance/stable) PAD (peripheral artery disease) Surgical History History of cardiac catheterization 2013 > 1 stent 2017 ([facility]) > 2 stents History of esophagogastroduodenoscopy (EGD) History of laparotomy History of revascularization procedure of lower extremity stents to BLLE Family History Other No family history of adverse response to anesthesia Social History Smoking Status: Current every day smoker Cigarettes Per Day: 1 ppd; Second Hand Exposure: Yes (hx); Do You Dip or Chew Tobacco: No; Tobacco Cessation Education Requested by Patient: No Hx Alcohol Use: No Hx Substance Use: No Preferred Language: Ukrainian Communication Ability: Effective Tankage Grinder Operator Required: No Beliefs That Will Affect Care: None Current Living Situation: Alone Feels Safe at Home: Yes Safety Concerns: Feels Safe At This Time Assistive Devices: None Review of Systems Review of Systems: All systems reviewed & are unremarkable except as noted in HPI & below Physical Exam Constitutional: NAD. Pt still tachycardic in low 100s. Currently O2 sat in low to mid 90s on CPAP FiO2 50, PEEP 12. BP controlled. Neck: No thyromegaly. Trachea midline. Respiratory: Course rhonchi heard in bilateral lung dominguez. No wheezing. Non labored breathing. Cardiovascular: Regular rhythm, tachycardia. No murmur noted. No LE edema. 2+ peripheral pulses. Mild clubbing of bilateral fingernails present. Gastrointestinal (Abdomen): Midline surgical scar intact w/o bleeding, fluid leakage, or pus. Non erythematous. Decreased bowel sounds throughout all quadrants. Soft, slightly distended but this appears to be pt's baseline. Tenderness to superficial palpation R>L. Psychiatric: Alert. Mood and affect congruent. Results & Data Results & Data ([facility]) Vital Signs (Past 12 Hours) Vital Signs Temp Pulse Pulse Resp BP Pulse Ox O2 Del Method 03/02/22 11:21 144 H 18 89 L Oxymask 03/02/22 10:43 88 L Oxymask 03/02/22 10:35 37.2 C 141 H 18 151/81 H 85 L Nasal Cannula 03/02/22 08:31 Oxymask 03/02/22 08:04 139 H 90 Oxymask 03/02/22 07:47 37 C 148 H 18 163/78 H 88 L Oxymask 03/02/22 05:00 133 H 18 139/76 Oxymask O2 Flow Rate 03/02/22 11:21 10 03/02/22 10:43 8 03/02/22 10:35 6 03/02/22 08:31 5 03/02/22 08:04 5 03/02/22 07:47 5 03/02/22 05:00 5 Resident Activity Tracking Resident Involvement: Resident Care Provided Care Provided: Adult Hospital Medicine
[2022-03-02 11:37] LABS: Base Excess ABG 5.4 mEq/L (-9-1.8); HCO3 ABG 30 mmol/L (19-24); Oxygen Saturation ABG 99.8 % (90-95); PCO2 ABG 42 mmHg (35-46); PO2 ABG 167 mmHg (80-95); pH ABG 7.46 (7.35-7.45)
[2022-03-02 11:38] LABS: Allen Test Pos (Pos)
[2022-03-02] MEDS ORDERED: PIPERACILLIN/TAZOBACTAM 3.375 GM in DEXTROSE 5% 100 ML IV ONE (11:45)
--- NOTE | 2022-03-02 12:21 | XRay Report ---
KUB HISTORY: Acute generalized dominant pain and distention with recent surgery s/p ex lap, distension COMPARISON: None. FINDINGS: Midline skin familia. Mildly dilated air-filled loops of small bowel measure up to 3.1 m. A ir is also noted within the nondistended stomach and large bowel. Contrast noted within the renal co llecting systems. Renal shadows are partially obscured by bowel gas. No pneumoperitoneum or pneumatos is. No fracture. IMPRESSION: Air-filled loops of large and small bowel favor a postoperative ileus. Follow-up recommended to exclu de a low-grade obstruction. ACT 112: Negative or not required by law. The above report was generated using voice recognition software. It may contain grammatical, syntax o r spelling errors. Electronically signed by: Pankaj Moran M.D. 03/02/2022 12:19 PM
[2022-03-02] MEDS ORDERED: VANCOMYCIN CONSULT ACTIVE PRN (12:27)
[2022-03-02] MEDS ORDERED: METOPROLOL TARTRATE 1 MG/ML VIAL IV ONE (12:31)
[2022-03-02] MEDS ORDERED: VANCOMYCIN HCL 1,500 MG in SODIUM CHLORIDE 0.9% 500 ML IV STA (12:31)
[2022-03-02] MEDS ORDERED: METOPROLOL TARTRATE 1 MG/ML VIAL IV STA (12:31)
[2022-03-02 13:03] LABS: Albumin Level 3.4 gm/dl (3.4-5.0); Bilirubin Direct 0.4 mg/dl (0-0.2); Bilirubin,Total 1.1 mg/dl (0.2-1.0); Total Protein 6.8 gm/dl (6.0-8.3)
[2022-03-02 13:08] LABS: Fibrinogen 706 mg/dl (184-400); INR 1.1 (0.9-1.1); Partial Thromboplastin Ratio 1.1; Partial Thromboplastin Time 29.9 Seconds (21.0-31.0); Prothrombin Time 11.9 Seconds (9.0-12.0)
--- NOTE | 2022-03-02 13:42 | Pharmacy Report ---
Pharmacy PK ABX Note - Date of Service March 02, 2022 - Assessment and Plan Assessment 56 year old M receiving vancomycin for treatment of sepsis. Pertinent microbiologic data includes: 03/02 blood cultures pending. WBC 24, afebrile, POD #2 ex. lap. Plan Vancomycin * Loading dose: 1500 mg IV x 1 * Maintenance dose: 1000 mg IV every 12 hours * Regimen is predicted to achieve target AUC/PHILLIP of 400-600 mg/L.hr * Level to be ordered if continued >48 hours Pharmacy will continue to follow and will adjust dose/frequency as necessary. Thank you. Pharmacy has transitioned to AUC monitoring for vancomycin. AUC/PHILLIP is the preferred PK/PD target and is associated with decreased risk of nephrotoxicity compared to traditional trough targets.
--- NOTE | 2022-03-02 15:22 | Surgery Progress Note ---
Date of Service March 02, 2022 Assessment & Plan (1) S/P exploratory laparotomy: Plan: Appreciate input from the cableman and the hospitalist. There is no planned surgical intervention for his aortic occlusion at this point in time.In the future he will either need a retroperitoneal approach for an aortobifemoral or of his medical condition does not improve then the axillobifemoral bypass may be the best choice. Admission and Anticipated Discharge Date Admission Date: February 28, 2022 Subjective This patient was sleeping at this time. Earlier today he had shortness of breath requiring increased oxygenation. . He also had Crackles in his lungs. He was seen by the hospitalist and cableman. He was placed on CPAP and moved to the intensive care unit for fluid overload and pneumonia.He did respond to a dose of Lasix with increase in his urine output. Physical Exam Constitutional: + ill appearing Sleeping at this time Respiratory: normal respiratory effort; no respiratory distress Auscultation: + crackles Cardiovascular: Rate/Rhythm: regular rate, regular rhythm and + tachycardic Vessels: femoral pulses present Extremities: + abnormal capillary refill Gastrointestinal (Abdomen): Inspection/Auscultation: + abdomen distended Percussion/Palpation: + abdomen tender and abdomen soft Skin: + incision (Dry and clean) Results & Data ([facility]) Vital Signs (Past 12 Hours) Vital Signs Temp Pulse Pulse Pulse Resp BP BP 03/02/22 15:00 113 H 15 159/92 H 03/02/22 12:05 37.6 C H 03/02/22 14:00 112 H 16 141/86 H 03/02/22 13:00 109 H 21 140/89 03/02/22 12:38 110 H 19 138/83 03/02/22 12:05 141 H 14 155/85 H 03/02/22 12:05 03/02/22 12:57 144 H 03/02/22 11:25 133 H 18 03/02/22 11:21 144 H 18 03/02/22 10:43 03/02/22 10:35 37.2 C 141 H 18 151/81 H 03/02/22 08:31 03/02/22 08:04 139 H 03/02/22 07:47 37 C 148 H 18 163/78 H 03/02/22 05:00 133 H 18 139/76 Pulse Ox O2 Del Method O2 Flow Rate FiO2 03/02/22 15:00 96 CPAP 50 03/02/22 12:05 03/02/22 14:00 97 CPAP 50 03/02/22 13:00 93 CPAP 50 03/02/22 12:38 94 CPAP 50 03/02/22 12:05 82 L CPAP 03/02/22 12:05 CPAP 50 03/02/22 12:57 03/02/22 11:25 93 60 03/02/22 11:21 89 L Oxymask 10 03/02/22 10:43 88 L Oxymask 8 03/02/22 10:35 85 L Nasal Cannula 6 03/02/22 08:31 Oxymask 5 03/02/22 08:04 90 Oxymask 5 03/02/22 07:47 88 L Oxymask 5 03/02/22 05:00 Oxymask 5
[2022-03-02] MEDS: MoRPHine SULFATE 2 MG/ML CARP IV PRN ×3 (15:48→21:39)
--- NOTE | 2022-03-02 16:37 | Billing Data ---
Date of Service March 02, 2022 Coding Level of Care Code Critical Care 1st - mins
--- NOTE | 2022-03-02 17:05 | CT Scan Report ---
CT abd pelvis IV con only CLINICAL HISTORY: concern for SBO, infectious nidus in abdomen. Status post exploratory laparotomy TECHNIQUE: Helical axial images of the abdomen and pelvis were obtained and displayed. Automated dose lowering techniques and/or adjustment according to patient size were utilized for this exam. This e xam was performed with intravenous contrast. CT DOSE: 743.39 mGy.cm COMPARISON: None available at the time of this dictation. FINDINGS: Lower chest: For findings above the diaphragm, please see CT chest performed same day. Liver: Unremarkable. No focal lesions are seen. Gallbladder and biliary tree: Cholelithiasis is seen without evidence of cholecystitis. No intra- or extrahepatic biliary ductal dilation. Pancreas: Unremarkable, no focal lesions. Spleen: Unremarkable. Adrenals: Unremarkable. Kidneys and ureters: Perinephric stranding is noted bilaterally. Bladder: Spivey catheter is seen. Reproductive organs: Unremarkable. Bowel: Diverticulosis is seen without evidence of diverticulitis. The appendix is normal. Lymph nodes Retroperitoneal: Unremarkable. Pelvic: Unremarkable. Mesenteric: Unremarkable. Peritoneum: Soft tissue stranding is seen in the anterior mesentery. There are a few locules of gas a nd fluid are noted along with some free intraperitoneal gas. Vessels: Occlusion of the infrarenal aorta is again seen. Abdominal wall: Bilateral fat-containing inguinal hernias are seen. Median incision is seen. No drain able fluid collection. Bones: Unremarkable. IMPRESSION: 1. Postsurgical changes of exploratory laparotomy are seen. There is mesenteric stranding and a smal l amount of free fluid and air in the peritoneum which may be expected on postoperative day 2. No trevon inable fluid collections are seen. No other acute abnormalities. 2. Redemonstration of occlusion of the infrarenal aorta. ACT 112: Negative or not required by law. Electronically signed by: Shaq Ireland M.D. 03/02/2022 5:03 PM
--- NOTE | 2022-03-02 17:19 | XCELERA ---
[id number] \\[id number]
[2022-03-02] MEDS: ENOXAPARIN INJ 40 MG/0.4 ML SYR SQ SCH (18:06)
[2022-03-02] MEDS: PIPERACILLIN/TAZOBACTAM 3.375 GM CI (over 4 hrs) IV SCH (18:07)
[2022-03-02] MEDS ORDERED: ALBUT/IPRATROP 3MG/0.5MG NEB 3 ML VIAL NEB STA (22:16)
[2022-03-02] MEDS: VANCOMYCIN HCL 1,000 MG in SODIUM CHLORIDE 0.9% 250 ML IV SCH (23:43)
[2022-03-03] MEDS: PIPERACILLIN/TAZOBACTAM 3.375 GM CI (over 4 hrs) IV SCH ×3 (01:56→17:11)
[2022-03-03] MEDS ORDERED: ACETAMINOPHEN 1,000 MG/100 ML VIAL IV PRN (02:10)
[2022-03-03] MEDS: MoRPHine SULFATE 2 MG/ML CARP IV PRN ×3 (04:40→19:46)
[2022-03-03 05:34] LABS: Hematocrit (blood only) 43.4 % (40.1-51.0); Hemoglobin 15.2 g/dl (14.0-18.0); Mean Corpuscular Hemoglobin 29.2 pg (25.0-34.0); Mean Corpuscular Volume 83.3 fL (80.0-100.0); Mean Platelet Volume 10.5 fL (9.4-12.4); Platelet Count 180 K/uL (130-400); RDW Coefficient of Variation 14.2 % (11.5-14.5); RDW Standard Deviation 42.8 fL (36.4-46.3); Red Blood Count 5.21 M/uL (4.63-6.08); White Blood Count 19.04 K/ul (4.8-10.8)
[2022-03-03 05:58] LABS: Basophils # (auto) 0.04 K/uL (0-0.2); Basophils % (auto) 0.2 %; Eosinophils # (auto) 0.01 K/uL (0-0.50); Eosinophils % (auto) 0.1 %; Immature Granulocytes # (auto) 0.15 K/uL (0.00-0.02); Immature Granulocytes % (auto) 0.8 %; Lymphocytes # (auto) 0.79 K/uL (1.2-3.4); Lymphocytes % (auto) 4.1 %; Monocytes # (auto) 0.83 K/uL (0.24-0.82); Monocytes % (auto) 4.4 %; Neutrophils # (auto) 17.22 K/uL (1.4-6.5); Neutrophils % (auto) 90.4 %
[2022-03-03 06:06] LABS: BUN Creatinine Ratio 14.3 (10-20); Calcium 8.2 mg/dl (8.5-10.1); Creatinine Clr Calc Pharmacy 86.1 ml/min; Est GFR (Non-African American) 93.2 ml/min; Magnesium 2.6 mg/dl (1.7-2.4); Potassium 3.6 mmol/L (3.5-5.1)
--- NOTE | 2022-03-03 07:05 | Critical Care Progress Note ---
Date of Service March 03, 2022 Assessment & Plan (1) Sepsis: Plan: Pt is a 56 yo male with PMH of SC in 2013 requiring 3 stents, COPD, depression, gastric ulcer w/ subsequent GI bleed, HLD, HTN, and PAD s/p bilateral LE stents presenting to the hospital on 02/28 for an aortobifemoral bypass. Reason critically ill: Pt upgraded to ICU 03/02 d/t tachycardia, increasing oxygen requirement, and sepsis. Neuro: - Pt alert and oriented - CAM-ICU: negative - No concerns at this time Cardiac: - hx of SC in 2013 s/p 3 stents per pt; takes metoprolol, statin, and clopidogrel at home - hx of significant PAD s/p BL LE stenting - EKGs showed sinus tachycardia w/o concern for ischemia - echo showed EF 55-60% w/ mild LVH - improved tachycardia secondary to respiratory status vs. pain control; added metoprolol 5 mg IV q8hr Respiratory: - acute hypoxic respiratory failure - hx of COPD, current every day smoker - CTA and CXR showed pulmonary edema, bibasilar opacities concerning for pneumonia vs. atelectasis, and upper lobe opacities d/t pulmonary edema vs. pneumonia vs. hemorrhage - repeat CXR today showed no significant change - pt still with increased oxygen requirements, especially w/ minimal activity - duoneb q6hr, OOB TID w/ PT and OT consults to promote lung expansion, chest percussion therapy TID GI: - NPO diet pending further evaluation of SBO vs. post op ileus - CTAP showed mesenteric stranding w/ free fluid and air in the peritoneum consistent w/ POD 2 from ex lap. No acute abnormalities. - PT/OT and OOB TID to promote return of bowel function Renal/electrolytes: - K 3.6 this AM, given 40 meq IV, goal >4.0 - Mg 2.6 this AM - Replace electrolytes as needed : - beebe catheter in place Endo: - Follow ICU hyperglycemic protocols Heme: - Stable Hgb and Hct, continue to monitor ID: - pt's WBC improving - blood and fungal cultures pending - sputum sample not collected yet, consider bronchoscopy if necessary - continue zosyn and vancomycin w/ addition of zithromax - CTAP neg for infectious foci Lines/IV access: peripheral IV DVT ppx: lovenox 40 mg daily Please refer to Dr. Vicente's documentation for any further recommendations. (2) COPD (chronic obstructive pulmonary disease): (3) S/P exploratory laparotomy: (4) Acute respiratory failure with hypoxia: (5) HTN (hypertension): (6) CAD (coronary artery disease): Admission and Anticipated Discharge Date Admission Date: February 28, 2022 Supervising Physician Co-Signing Physician Notes Dr. Claire was resident physician during care of patient. I separately evaluated patient for white portions of the history and the exam. I was present during the critical portion of medical decision making, and I discussed the case with the resident. I generally agree with the findings and plan. Patient with improved SIRS criteria. Hemodynamics slightly improved. Significant desaturation with minimal activity. Acute hypoxic respiratory failure, SA to O2 ratio: 121 Fire order respiratory panel bio [facility]. Echocardiogram reviewed, EKG: QTC appropriate will add Zithromax for atypical coverage. I am more concerned of a pulmonary infection. He has not been able to produce a sputum. Out of bed to chair to encourage both return of bowel function as well as hopefully decreasing atelectasis. May consider an IV assisted bronchoscopy later to obtain sputum specimen. Starting 5 mg metoprolol every 8 hours IV for tachycardia. Aggressive pulmonary toileting with every 6 hours nebs. PT OT consult encourage any activity to expand lungs. I have personally spent 45 minutes of critical care time in the direct management of this patient. This is a life/limb threatening event. This includes time spent evaluating patient, direct bedside care, chart review, placing orders, interpretation of diagnostic studies, discussion with consultants, patient, and/or family members regarding treatment decisions, as well as other required patient management activities. This time is exclusive of all separately billable procedures, and teaching time and separate from and in addition to any other critical care service time. Subjective Pt is a 56 yo male with PMH of SC in 2013 requiring 3 stents, COPD, depression, gastric ulcer w/ subsequent GI bleed, HLD, HTN, and PAD s/p bilateral LE stents presenting to the hospital on 02/28 for an aortobifemoral bypass. Pt upgraded to ICU 03/02 d/t tachycardia, increasing oxygen requirement, and sepsis. Pt seen at bedside this AM. Pt's oxygen dropped throughout the night w/ movements requiring CPAP. Pt states he feels better today than yesterday. He endorses some pain in his abdomen but improved from yesterday. He states his lower back is also painful which he attributes to coughing. His cough was productive overnight but he states not enough for a sputum sample. He has not been passing gas but endorses belching. He denies SOB, difficulty breathing, chest pain, and leg pains. Review of Systems Review of Systems: All systems reviewed & are unremarkable except as noted in HPI & below Physical Exam Constitutional: NAD. Tachycardic throughout the night and into this AM. O2 sat low to mid 90s w/ high flow NC at 30 L/min, FiO2 75. Neck: No thyromegaly. Trachea midline. Respiratory: Decreased breath sounds throughout. Occasional rhonchi heard. No wheezing or crackles appreciated. Non labored breathing. Cardiovascular: Regular rhythm, tachycardia. No murmur noted. No LE edema. Gastrointestinal (Abdomen): Surgical scar healing well w/o dehiscence, drain age, or superficial infection. Soft, decreased BS, tender to palpation mostly in RUQ. Psychiatric: Alert. Mood and affect congruent. Results & Data Results & Data ([facility]) Vital Signs (Past 12 Hours) Vital Signs Temp Pulse Pulse Pulse Resp BP Pulse Ox 03/03/22 06:18 37.2 C 03/03/22 06:00 114 H 15 95 03/03/22 05:00 126 H 20 93 03/03/22 04:00 123 H 22 93 03/03/22 04:00 148/89 H 03/03/22 03:00 125 H 14 93 03/03/22 03:00 160/80 H 03/03/22 02:00 128 H 23 92 03/03/22 02:00 157/84 H 03/03/22 01:00 121 H 23 93 03/03/22 02:21 123 H 22 93 03/03/22 00:00 121 H 18 94 03/03/22 00:00 143/87 H 03/02/22 23:00 123 H 19 98 03/02/22 23:00 157/87 H 03/02/22 22:00 128 H 19 93 03/02/22 21:00 128 H 20 90 03/02/22 21:00 162/83 H 03/02/22 23:10 126 H 22 96 03/02/22 22:30 03/02/22 22:30 128 H 128 H 20 97 03/02/22 21:57 130 H 22 94 03/02/22 20:00 129 H 19 92 03/02/22 20:00 143/92 H 03/02/22 19:00 127 H 21 92 03/02/22 20:00 O2 Del Method O2 Flow Rate FiO2 03/03/22 06:18 03/03/22 06:00 03/03/22 05:00 03/03/22 04:00 03/03/22 04:00 03/03/22 03:00 03/03/22 03:00 03/03/22 02:00 03/03/22 02:00 03/03/22 01:00 03/03/22 02:21 High Flow Nasal Cannula 30 75 03/03/22 00:00 03/03/22 00:00 03/02/22 23:00 03/02/22 23:00 03/02/22 22:00 03/02/22 21:00 03/02/22 21:00 03/02/22 23:10 High Flow Nasal Cannula 30 60 03/02/22 22:30 70 03/02/22 22:30 CPAP 70 03/02/22 21:57 60 03/02/22 20:00 03/02/22 20:00 03/02/22 19:00 03/02/22 20:00 Oxymask 8 Resident Activity Tracking Resident Involvement: Resident Care Provided Care Provided: Adult Hospital Medicine
[2022-03-03] MEDS: POTASSIUM CHLORIDE / WTR 10 MEQ/100 ML PLCT IV SCH ×4 (07:50→11:13)
[2022-03-03] MEDS: NICOTINE 21 MG/24 HR TDSY TD SCH (08:56)
--- NOTE | 2022-03-03 09:14 | Surgery Progress Note ---
Date of Service March 03, 2022 Assessment & Plan (1) S/P exploratory laparotomy: Plan: Appreciate input and care from the director of collections and archives and the hospitalist. Cultures from his abscess demonstrate no growth, however, pt will require abx for 4-6 weeks post op. There is no planned surgical intervention for his aortic occlusion at this point in time. In the future he will either need a retroperitoneal approach for an aortobifemoral or of his medical condition does not improve then the axillobifemoral bypass may be the best choice. Admission and Anticipated Discharge Date Admission Date: February 28, 2022 Subjective 56 yo m POD #3 after aborted attempt at aortobifemoral bypass, seen in f/u today. Pt had increasing oxygen requirements, tachycardia, and hypertension yesterday and was eval by hospitalist and transferred to ICU for monitoring. Fluid overload noted and pt has been diuresed. Pt states he is tired and still has some abd pain, but no nausea or vomiting. Has not been passing flatus, nor had BM since procedure. Review of Systems Review of Systems: All systems reviewed & are unremarkable except as noted in HPI & below Physical Exam Constitutional: NAD, A &O x3. Appears mildly ill. Neck: No thyromegaly. Trachea midline. Respiratory: Decreased breath sounds throughout. Non labored breathing. Cardiovascular: Regular rhythm, tachycardia. No murmur noted. No LE edema. Gastrointestinal (Abdomen): Surgical scar noted. +general tenderness, mild distension, hypoactive BS. Psychiatric: Alert. Mood and affect congruent. Results & Data ([facility]) Vital Signs (Past 12 Hours) Vital Signs Temp Pulse Pulse Pulse Resp BP BP 03/03/22 08:00 115 H 20 125/80 03/03/22 07:00 110 H 22 149/80 H 03/03/22 07:00 36.2 C L 111 H 24 149/86 H 03/03/22 08:00 114 H 03/03/22 08:00 03/03/22 07:49 121 H 16 03/03/22 06:18 37.2 C 03/03/22 06:00 114 H 15 03/03/22 05:00 126 H 20 03/03/22 04:00 123 H 22 03/03/22 04:00 148/89 H 03/03/22 03:00 125 H 14 03/03/22 03:00 160/80 H 03/03/22 02:00 128 H 23 03/03/22 02:00 157/84 H 03/03/22 01:00 121 H 23 03/03/22 02:21 123 H 22 03/03/22 00:00 121 H 18 03/03/22 00:00 143/87 H 03/02/22 23:00 123 H 19 03/02/22 23:00 157/87 H 03/02/22 22:00 128 H 19 03/02/22 23:10 126 H 22 03/02/22 22:30 03/02/22 22:30 128 H 128 H 20 03/02/22 21:57 130 H 22 Pulse Ox O2 Del Method O2 Flow Rate FiO2 03/03/22 08:00 91 03/03/22 07:00 93 03/03/22 07:00 94 High Flow Nasal Cannula 30 75 03/03/22 08:00 03/03/22 08:00 High Flow Nasal Cannula 75 03/03/22 07:49 92 High Flow Nasal Cannula 30 75 03/03/22 06:18 03/03/22 06:00 95 03/03/22 05:00 93 03/03/22 04:00 93 03/03/22 04:00 03/03/22 03:00 93 03/03/22 03:00 03/03/22 02:00 92 03/03/22 02:00 03/03/22 01:00 93 03/03/22 02:21 93 High Flow Nasal Cannula 30 75 03/03/22 00:00 94 03/03/22 00:00 03/02/22 23:00 98 03/02/22 23:00 03/02/22 22:00 93 03/02/22 23:10 96 High Flow Nasal Cannula 30 60 03/02/22 22:30 70 03/02/22 22:30 97 CPAP 70 03/02/22 21:57 94 60
[2022-03-03] MEDS ORDERED: AZITHROMYCIN 1,000 MG in DEXTROSE 5% 250 ML IV ONE (10:01)
--- NOTE | 2022-03-03 10:03 | XRay Report ---
XR chest 1V portable HISTORY: variable oxygen requirement COMPARISON: Chest 03/02/2022. FINDINGS: No pneumothorax. No pleural effusions. Hazy bilateral airspace opacities and interstitial t hickening persists. The heart remains mildly enlarged. No pleural effusions. IMPRESSION: No change in the hazy bilateral airspace opacities with interstitial thickening. This could be due to a pneumonia or pulmonary edema. ACT 112: Negative or not required by law. Electronically signed by: Enoch Santiago M.D. 03/03/2022 10:02 AM
[2022-03-03] MEDS ORDERED: AZITHROMYCIN 500 MG in DEXTROSE 5% 250 ML IV SCH (10:15)
[2022-03-03] MEDS: AZITHROMYCIN 500 MG in DEXTROSE 5% 250 ML IV SCH (10:30)
[2022-03-03] MEDS: METOPROLOL TARTRATE 1 MG/ML VIAL IV SCH ×2 (10:30→17:11)
--- NOTE | 2022-03-03 10:53 | Electrocardiogram Report ---
Test Reason : Blood Pressure : / mmHG Vent. Rate : 135 BPM Atrial Rate : 135 BPM P-R Int : 144 ms QRS Dur : 074 ms QT Int : 278 ms P-R-T Axes : 043 038 034 degrees QTc Int : 417 ms Sinus tachycardia Possible Left atrial enlargement Septal infarct , age undetermined Possible Inferior infarct Abnormal ECG No previous ECGs available Confirmed by Herbert Coy ([id number]) on 03/03/2022 10:53:17 AM Referred By: Joey Pennington Confirmed By:Herbert Coy
--- NOTE | 2022-03-03 11:11 | Electrocardiogram Report ---
Test Reason : Blood Pressure : / mmHG Vent. Rate : 108 BPM Atrial Rate : 108 BPM P-R Int : 134 ms QRS Dur : 084 ms QT Int : 326 ms P-R-T Axes : 058 047 033 degrees QTc Int : 436 ms Sinus tachycardia Anteroseptal infarct (cited on or before 02-MAR-2022) Abnormal ECG When compared with ECG of 02-MAR-2022 09:31, No significant change was found Confirmed by Herbert Coy ([id number] on 03/03/2022 11:11:19 AM Referred By: Joey Pennington Confirmed By:Herbert Coy
[2022-03-03] MEDS: PANTOprazole 40 MG in SYRINGE 0 ML IV SCH (11:13)
[2022-03-03 12:01] LABS: Adenovirus PCR Not Detected (NotDetected); Bordetella parapertussis PCR Not Detected (NotDetected); Bordetella pertussis PCR Not Detected (NotDetected); Chlamydia pneumoniae PCR Not Detected (NotDetected); Coronavirus 229E PCR Not Detected (NotDetected); Coronavirus CoV-2 (COVID19)PCR Not Detected (NotDetected); Coronavirus HKU1 PCR Not Detected (NotDetected); Coronavirus NL63 PCR Not Detected (NotDetected); Coronavirus OC43PCR Not Detected (NotDetected); Human Metapneumovirus PCR Not Detected (NotDetected); Influenza A PCR Not Detected (NotDetected); Influenza B PCR Not Detected (NotDetected); Mycoplasma pneumoniae PCR Not Detected (NotDetected); Parainfluenza Virus 1 PCR Not Detected (NotDetected); Parainfluenza Virus 2 PCR Not Detected (NotDetected); Parainfluenza Virus 3 PCR Not Detected (NotDetected); Parainfluenza Virus 4 PCR Not Detected (NotDetected); Respiratory Syncytial VirusPCR Not Detected (NotDetected); Rhinovirus/Enterovirus PCR Not Detected (NotDetected)
[2022-03-03] MEDS: ALBUT/IPRATROP 3MG/0.5MG NEB 3 ML VIAL NEB SCH ×2 (12:15→19:55)
[2022-03-03] MEDS: VANCOMYCIN HCL 1,000 MG in SODIUM CHLORIDE 0.9% 250 ML IV SCH (12:37)
--- NOTE | 2022-03-03 14:25 | Hospitalist Progress Note ---
Date of Service March 03, 2022 Assessment & Plan (1) Acute respiratory failure with hypoxia: Plan: Acute pulmonary edema + b/l pneumonia. Cannot fully exclude ARDS given CXR appearance and very high HFNC requirements. No obvious PE on CTA Chest yesterday although images were suboptimal. Cont HFNC. Cont broad-spectrum IV abx. Consider additional dose of lasix today. Given his extensive wheezes and COPD- consider IV steroids. (2) Acute pulmonary edema: Plan: acute diastolic CHF - 03/02/22. s/p lasix with copious diuresis. had echo 12/13/21 through [facility] (see scanned report) showing EF 60% with normal valve function. echo here with preserved EF. Consider additional lasix today but defer to pipe cleaning machine operator. (3) Bilateral pneumonia: Plan: leukocytosis modestly improved today. sputum cx collected/pending. remains on significant respiratory support with large amount of HFNC. cxr today noted (diffuse infiltrates b/l). remains on zosyn. vanco + azithromycin. Bio[employer] panel noted to be negative. (4) Sepsis: Plan: 2nd to pneumonia blood cx's remain negative cont broad-spectrum IV antibiotics (5) S/P exploratory laparotomy: Plan: POD #3 - ex lap -- aborted attempt at aortobifemoral bypass. abscess found - culture thus far negative. per vascular will need 4-6 weeks of abx. (6) Hypokalemia: Plan: replaced resolved (7) Hypomagnesemia: Plan: replaced resolved (8) Tachycardia: Plan: sinus 2nd to acute respiratory failure no evidence of PEs H/H stable (9) CAD (coronary artery disease): Plan: Lexiscan nuclear stress test 12/2021 via [facility] (see scanned documents) was negative for myocardial ischemia. Troponin negative - no evidence of ACS. (10) COPD (chronic obstructive pulmonary disease): Plan: consider steroid therapy but defer to ICU attending cont bronchodilators some of the wheezing could be pulmonary edema as well (11) HTN (hypertension): Plan: consider IV hydralazine or IV metoprolol if needed (12) History of myocardial infarction: Plan: noted typically on statin, plavix, metoprolol resume these when able to take PO (13) History of gastric ulcer: Plan: IV PPI (14) Aortic occlusion: Plan: Defer management to primary vascular surgery team. s/p ex lap with aborted attempt at aortobifemoral bypass. (15) Abdominal distension: Plan: mild ileus on x-rays. no flatus/stool thus far. defer Rx to vascular/pipe cleaning machine operator. (16) Hyponatremia: Plan: 2nd to diuresis repeat bmp am Plan appreciate critical care assistance Admission and Anticipated Discharge Date Admission Date: February 28, 2022 Subjective events of last 24 hours noted patient with increasing O2 requirements and now on high-flow NC during my visit he was resting comfortably he has mostly dry cough but did have sputum once today dyspnea with any movement abd pain and bloating remain but better than yesterday no flatus or stool yet tele - sinus tach Review of Systems Review of Systems: gen - no fever cv - no chest pain GI - no vomiting or nausea Physical Exam Physical Exam: gen - more comfortable appearing today, awake/alert HENT - mouth with MMM, poor dentition neck - no JVD present heart - tachycardic, s1 s2, no murmur lungs - diffuse wheezes b/l, tachypnea; retractions, accessory muscle use resolved; occasional basilar crackle abd - distended but improved, BS+ but increased today, mildly tender over incision ext - pulses both feet 1+ b/l Results & Data Results & Data ([place]) Vital Signs (Past 12 Hours) Vital Signs Temp Pulse Pulse Pulse Resp BP BP 03/03/22 12:20 114 H 20 03/03/22 11:28 107 H 18 03/03/22 10:30 120 H 167/88 H 03/03/22 09:00 116 H 17 03/03/22 08:27 152/86 H 03/03/22 08:27 115 H 16 03/03/22 08:00 115 H 20 125/80 03/03/22 07:00 110 H 22 149/80 H 03/03/22 07:00 36.2 C L 111 H 24 149/86 H 03/03/22 08:00 114 H 03/03/22 08:00 03/03/22 07:49 121 H 16 03/03/22 06:18 37.2 C 03/03/22 06:00 114 H 15 03/03/22 05:00 126 H 20 03/03/22 04:00 123 H 22 03/03/22 04:00 148/89 H 03/03/22 03:00 125 H 14 03/03/22 03:00 160/80 H Pulse Ox O2 Del Method O2 Flow Rate FiO2 03/03/22 12:20 97 High Flow Nasal Cannula 30 65 03/03/22 11:28 98 High Flow Nasal Cannula 30 75 03/03/22 10:30 03/03/22 09:00 91 03/03/22 08:27 03/03/22 08:27 92 03/03/22 08:00 91 03/03/22 07:00 93 03/03/22 07:00 94 High Flow Nasal Cannula 30 75 03/03/22 08:00 03/03/22 08:00 High Flow Nasal Cannula 75 03/03/22 07:49 92 High Flow Nasal Cannula 30 75 03/03/22 06:18 03/03/22 06:00 95 03/03/22 05:00 93 03/03/22 04:00 93 03/03/22 04:00 03/03/22 03:00 93 03/03/22 03:00 Laboratory Results Laboratory Results - last 24 hr 02/28/22 03/02/22 03/03/22 06:10 20:26 04:53 WBC RBC Hgb Hct MCV MCH MCHC RDW Std Deviation RDW Coeff of Sondra Plt Count MPV Immature Gran % (Auto) Neut % (Auto) Lymph % (Auto) [place] % (Auto) Eos % (Auto) Baso % (Auto) Neut # (Auto) Lymph # (Auto) [place] # (Auto) Eos # (Auto) Baso # (Auto) Immature Gran # (Auto) Sodium 131 L Potassium 3.6 Chloride 97 L Carbon Dioxide 28 Anion Gap 6 BUN 13 Creatinine 0.91 Est Cr Clr Drug Dosing 86.1 Est GFR ( Amer) 108.0 Est GFR (Non-Af Amer) 93.2 BUN/Creatinine Ratio 14.3 Glucose 125 H POC Glucose 133 H Calcium 8.2 L Magnesium 2.6 H Adenovirus (PCR) B. pertussis DNA (PCR) B.parapertussis DNA PCR C. pneumoniae DNA (PCR) Coronavirus OC43 (PCR) Coronavirus HKU1 (PCR) Coronavirus 229E (PCR) SARS-CoV-2 (PCR) Coronavirus NL63 (PCR) Human Metapneumovir PCR Influenza Type A (PCR) Influenza Type B (PCR) M. pneumoniae (PCR) Parainfluenza 1 (PCR) Parainfluenza 2 (PCR) Parainfluenza 3 (PCR) Parainfluenza 4 (PCR) RSV (PCR) Entero/Rhino (PCR) Crossmatch See Detail 03/03/22 03/03/22 04:53 10:46 WBC 19.04 H RBC 5.21 Hgb 15.2 Hct 43.4 MCV 83.3 MCH 29.2 MCHC 35.0 RDW Std Deviation 42.8 RDW Coeff of Sondra 14.2 Plt Count 180 MPV 10.5 Immature Gran % (Auto) 0.8 Neut % (Auto) 90.4 Lymph % (Auto) 4.1 [place] % (Auto) 4.4 Eos % (Auto) 0.1 Baso % (Auto) 0.2 Neut # (Auto) 17.22 H Lymph # (Auto) 0.79 L [place] # (Auto) 0.83 H Eos # (Auto) 0.01 Baso # (Auto) 0.04 Immature Gran # (Auto) 0.15 H Sodium Potassium Chloride Carbon Dioxide Anion Gap BUN Creatinine Est Cr Clr Drug Dosing Est GFR ( Amer) Est GFR (Non-Af Amer) BUN/Creatinine Ratio Glucose POC Glucose Calcium Magnesium Adenovirus (PCR) Not Detected B. pertussis DNA (PCR) Not Detected B.parapertussis DNA PCR Not Detected C. pneumoniae DNA (PCR) Not Detected Coronavirus OC43 (PCR) Not Detected Coronavirus HKU1 (PCR) Not Detected Coronavirus 229E (PCR) Not Detected SARS-CoV-2 (PCR) Not Detected Coronavirus NL63 (PCR) Not Detected Human Metapneumovir PCR Not Detected Influenza Type A (PCR) Not Detected Influenza Type B (PCR) Not Detected M. pneumoniae (PCR) Not Detected Parainfluenza 1 (PCR) Not Detected Parainfluenza 2 (PCR) Not Detected Parainfluenza 3 (PCR) Not Detected Parainfluenza 4 (PCR) Not Detected RSV (PCR) Not Detected Entero/Rhino (PCR) Not Detected Crossmatch PG Care Time/CCT Total # of Minutes Spent Total Time Spent with Patient: Total time spent is greater than 50% in coordination of care (as documented) at patient's floor/unit and/or counseling patient: Coding Level of Care Code None Diagnoses Acute respiratory failure with hypoxia J96.01 Acute pulmonary edema J81.0 Bilateral pneumonia J18.9 Sepsis A41.9 S/P exploratory laparotomy Z98.890 Hypokalemia E87.6 Hypomagnesemia E83.42 Tachycardia R00.0 CAD (coronary artery disease) I25.10 COPD (chronic obstructive pulmonary disease) J44.9 HTN (hypertension) I10 History of myocardial infarction I25.2 History of gastric ulcer Z87.11 Aortic occlusion I70.0 Abdominal distension R14.0 Hyponatremia E87.1
[2022-03-03] MEDS: ENOXAPARIN INJ 40 MG/0.4 ML SYR SQ SCH (17:10)
[2022-03-03] MEDS ORDERED: FUROSEMIDE INJ 20 MG/2 ML VIAL IV ONE (19:15)
[2022-03-03] MEDS ORDERED: DICLOFENAC SOD 1% GEL 100 GM TUBE EXT PRN (21:46)
[2022-03-04] MEDS: VANCOMYCIN HCL 1,000 MG in SODIUM CHLORIDE 0.9% 250 ML IV SCH ×3 (00:14→23:21)
[2022-03-04] MEDS: ALBUT/IPRATROP 3MG/0.5MG NEB 3 ML VIAL NEB SCH ×4 (00:45→19:54)
[2022-03-04] MEDS: PIPERACILLIN/TAZOBACTAM 3.375 GM CI (over 4 hrs) IV SCH ×2 (01:39→09:40)
[2022-03-04] MEDS: METOPROLOL TARTRATE 1 MG/ML VIAL IV SCH ×3 (01:40→18:23)
[2022-03-04 05:08] LABS: Basophils # (auto) 0.04 K/uL (0-0.2); Basophils % (auto) 0.2 %; Eosinophils # (auto) 0.01 K/uL (0-0.50); Eosinophils % (auto) 0.1 %; Hematocrit (blood only) 41.2 % (40.1-51.0); Immature Granulocytes # (auto) 0.09 K/uL (0.00-0.02); Immature Granulocytes % (auto) 0.6 %; Lymphocytes # (auto) 0.89 K/uL (1.2-3.4); Lymphocytes % (auto) 5.4 %; Mean Corpuscular Hemoglobin 28.5 pg (25.0-34.0); Mean Corpuscular Volume 83.9 fL (80.0-100.0); Mean Platelet Volume 10.5 fL (9.4-12.4); Monocytes # (auto) 0.83 K/uL (0.24-0.82); Monocytes % (auto) 5.1 %; Neutrophils # (auto) 14.49 K/uL (1.4-6.5); Neutrophils % (auto) 88.6 %; Platelet Count 194 K/uL (130-400); RDW Coefficient of Variation 14.3 % (11.5-14.5); RDW Standard Deviation 43.8 fL (36.4-46.3); Red Blood Count 4.91 M/uL (4.63-6.08); White Blood Count 16.35 K/ul (4.8-10.8)
[2022-03-04] MEDS: MoRPHine SULFATE 2 MG/ML CARP IV PRN (05:10)
[2022-03-04 05:26] LABS: Calcium 8.3 mg/dl (8.5-10.1); Magnesium 2.1 mg/dl (1.7-2.4); Potassium 3.3 mmol/L (3.5-5.1)
[2022-03-04 05:31] LABS: BUN Creatinine Ratio 21.7 (10-20); Creatinine Clr Calc Pharmacy 85.2 ml/min; Est GFR (African American) 106.6 ml/min
--- NOTE | 2022-03-04 06:44 | Critical Care Progress Note ---
Date of Service March 04, 2022 Assessment & Plan (1) Sepsis: Plan: Pt is a 56 yo male with PMH of [place] in 2013 requiring 3 stents, COPD, depression, gastric ulcer w/ subsequent GI bleed, HLD, HTN, and PAD s/p bilateral LE stents presenting to the hospital on 02/28 for an aortobifemoral bypass. Reason critically ill: Pt upgraded to ICU 03/02 d/t tachycardia, increasing oxygen requirement, and sepsis. Neuro: - Pt alert and oriented - CAM-ICU: negative - No concerns at this time Cardiac: - hx of [place] in 2013 s/p 3 stents per pt; takes metoprolol, statin, and clopidogrel at home - hx of significant PAD s/p BL LE stenting - echo showed EF 55-60% w/ mild LVH - continue metoprolol 5 mg IV q8hr Respiratory: - acute hypoxic respiratory failure - hx of COPD, current every day smoker - CTA and CXR showed pulmonary edema, bibasilar opacities concerning for pneumonia vs. atelectasis, and upper lobe opacities d/t pulmonary edema vs. pneumonia vs. hemorrhage - repeat CXR 03/03 showed no significant change - bronchoscopy performed 03/04; showed significant mucous casts and an epiglottic lesion - continue duoneb q6hr, OOB TID w/ PT and OT consults to promote lung expansion, chest percussion therapy TID - awaiting BAL results GI: - NPO diet - bowel function appears to be resuming; however, there is a new concern for aspiration - will proceed with swallow eval and CT soft tissue neck w/ contrast when oxygen requirements permit - PT/OT and OOB TID to promote return of bowel function Renal/electrolytes: - K 3.3 this AM, given 60 meq IV, goal >4.0 - Mg 2.1 this AM - Replace electrolytes as needed : - beebe catheter in place Endo: - Follow ICU hyperglycemic protocols Heme: - Stable Hgb and Hct, continue to monitor ID: - pt's WBC improving - blood cx neg after 24 hours - fungal cultures pending - BAL pending - downgraded ABX to zithromax and rocephin, continue vanco pending BAL Lines/IV access: peripheral IV DVT ppx: lovenox 40 mg daily Please refer to Dr. Vicente's documentation for any further recommendations. (2) COPD (chronic obstructive pulmonary disease): (3) S/P exploratory laparotomy: (4) Acute respiratory failure with hypoxia: (5) HTN (hypertension): (6) CAD (coronary artery disease): (7) Epiglottic lesion: Admission and Anticipated Discharge Date Admission Date: February 28, 2022 Supervising Physician Co-Signing Physician Notes Dr. Claire was resident physician during care of patient. I separately evaluated patient for white portions of the history and the exam. I was present during the critical portion of medical decision making, and I discussed the case with the resident. I generally agree with the findings and plan. Patient with continued oxygen requirement. Proceeded with bronchoscopy. Significant mucoid impaction no isacc purulence. At this point with cultures being negative I will continue with antibiotics for a superimposed bacterial infection of pulmonary origin. De-escalate from Zosyn vancomycin and Zithromax to Rocephin, Zithromax for atypical coverage, continue vancomycin until BAL specimen reports back and then can discontinue vancomycin if no MRSA. Patient had been eating and drinking, he was n.p.o. for possible ileus. Given the changes in the false vocal cords and the epiglottic lesion I am concerned there could be aspiration and if the patient is able to get off high oxygen requirements a formal swallow evaluation should be obtained at that time. At some point the patient should also receive a CT of the neck with contrast given the mass on the epiglottis. Given the acute hypoxic respiratory failure that takes precedence over evaluation by ENT however if he has significant provement that may be something to entertain or follow-up closely as an outpatient. I have personally spent 65 minutes of critical care time in the direct management of this patient. This is a life/limb threatening event. This includes time spent evaluating patient, direct bedside care, chart review, placing orders, interpretation of diagnostic studies, discussion with consultants, patient, and/or family members regarding treatment decisions, as well as other required patient management activities. This time is exclusive of all separately billable procedures, and teaching time and separate from and in addition to any other critical care service time. Subjective Pt is a 56 yo male with PMH of [place] in 2013 requiring 3 stents, COPD, depression, gastric ulcer w/ subsequent GI bleed, HLD, HTN, and PAD s/p bilateral LE stents presenting to the hospital on 02/28 for an aortobifemoral bypass. Pt upgraded to ICU 03/02 d/t tachycardia, increasing oxygen requirement, and sepsis. Pt asleep this morning following bronchoscopy. Overnight, pt became tachypneic in the high 20s-30s w/ increase distress with breathing. Because of this, the decision was made to proceed with bronchoscopy. Pt tolerated procedure well. Pt states he is starting to pass some gas. He only had abdominal pain when he coughs. He denies chest pain, SOB, or leg pains. Review of Systems Review of Systems: All systems reviewed & are unremarkable except as noted in HPI & below Physical Exam Constitutional: NAD. Tachypneic. O2 sat in 90s on BIPAP, FiO2 70, PEEP 5, and RR 18. Neck: Trachea midline. Respiratory: Rhonchi heard throughout lung dominguez. No crackles or wheezing. Non labored breathing. Cardiovascular: RRR. No murmur noted. No LE edema. Gastrointestinal (Abdomen): Surgical scar healing well. Soft. Mild tenderness upon deep palpation of LLQ. Otherwise non tender. Decreased bowel sounds. Psychiatric: Alert and oriented. Mood and affect congruent. Results & Data Results & Data ([facility]) Vital Signs (Past 12 Hours) Vital Signs Temp Pulse Pulse Pulse Resp BP Pulse Ox 03/04/22 06:28 133 H 28 H 95 03/04/22 06:28 130 H 27 H 97 03/04/22 05:00 37.1 C 128 H 24 91 03/04/22 05:00 156/87 H 03/04/22 04:00 122 H 21 93 03/04/22 04:00 178/87 H 03/04/22 03:00 123 H 19 92 03/04/22 03:00 160/84 H 03/04/22 02:00 126 H 19 93 03/04/22 02:00 151/85 H 03/04/22 01:00 130 H 24 93 03/04/22 01:00 146/75 H 03/04/22 00:00 121 H 20 90 03/04/22 00:00 140/72 03/03/22 23:00 123 H 20 91 03/03/22 23:00 160/82 H 03/03/22 22:00 124 H 21 93 03/03/22 22:00 144/83 H 03/04/22 04:05 124 H 22 91 01/21/23 01:40 126 H 146/75 H 03/04/22 00:45 123 H 20 90 03/03/22 23:00 124 H 21 93 03/03/22 21:00 122 H 19 90 03/03/22 21:00 154/83 H 03/03/22 20:00 37.1 C 122 H 20 93 03/03/22 20:00 154/84 H 03/03/22 19:00 123 H 32 H 88 L 03/03/22 19:00 155/84 H 03/03/22 20:00 03/03/22 19:55 124 H 26 H 93 O2 Del Method O2 Flow Rate FiO2 03/04/22 06:28 65 03/04/22 06:28 BiPAP 80 03/04/22 05:00 03/04/22 05:00 03/04/22 04:00 03/04/22 04:00 03/04/22 03:00 03/04/22 03:00 03/04/22 02:00 03/04/22 02:00 03/04/22 01:00 03/04/22 01:00 03/04/22 00:00 03/04/22 00:00 03/03/22 23:00 03/03/22 23:00 03/03/22 22:00 03/03/22 22:00 03/04/22 04:05 High Flow Nasal Cannula 60 85 03/04/22 01:40 03/04/22 00:45 High Flow Nasal Cannula 60 85 03/03/22 23:00 High Flow Nasal Cannula 60 75 03/03/22 21:00 03/03/22 21:00 03/03/22 20:00 03/03/22 20:00 03/03/22 19:00 03/03/22 19:00 03/03/22 20:00 High Flow Nasal Cannula 03/03/22 19:55 High Flow Nasal Cannula 60 85 Resident Activity Tracking Resident Involvement: Resident Care Provided Care Provided: Adult Hospital Medicine
[2022-03-04] MEDS ORDERED: STAT IV Infusion **Titration per Protocol STA (07:00)
[2022-03-04] MEDS ORDERED: DexMEDEtomidine BOLUS FROM BAG IV ONE (07:00)
--- NOTE | 2022-03-04 07:09 | Billing Data ---
Date of Service March 04, 2022 Coding Level of Care Code Critical Care 1st - mins
[2022-03-04] MEDS ORDERED: MIDAZOLAM HCL 1 MG/ML 2ML VIAL ONE (07:12)
[2022-03-04] MEDS ORDERED: MIDAZOLAM HCL 5 MG/ML 1 ML VIAL IV STA (07:14)
[2022-03-04] MEDS ORDERED: NALOXONE HCL 0.4 MG/1 ML VIAL/CARP IV PRN (07:15)
[2022-03-04] MEDS ORDERED: fentaNYL citrate 100 MCG/2 ML VIAL ONE (07:16)
[2022-03-04] MEDS ORDERED: NALOXONE HCL 0.4 MG/1 ML VIAL/CARP ONE (07:17)
[2022-03-04] MEDS: dexMEDEtomidine 200 MCG/50 ML BAG IV SCH ×2 (07:24→08:25)
[2022-03-04] MEDS: fentaNYL citrate 100 MCG/2 ML VIAL IV PRN ×2 (07:32→07:40)
--- NOTE | 2022-03-04 07:54 | Procedure Note ---
Procedure Note Date of Service March 04, 2022 Note Procedure date: March 04, 2022 Procedure: fiberoptic bronchoscopy Pre-procedure indication: Acute hypoxic respiratory failure Post-procedure Diagnosis: Mucoid impaction, nonmobile mass on epiglottis Prior to Procedure: Informed Consent: The risks, benefits, indications, potential complications, and alternatives were explained to the patient and informed consent obtained. Attending Staff: Ranjit Vicente DO Resident/APC: Jagruti Skin Prep: Not applicable Anesthesia: Continuous infusion of Precedex with loading bolus, fentanyl 100 mcg x 1 IV, fentanyl 50 mcg x 1 IV The identity of the patient was confirmed and a bedside time out was performed. Description of Procedure: Fiberoptic bronchoscopy was performed via full noninvasive facemask. Bronchioalveolar lavage right upper, right middle right lower lobes was performed. Findings included: Approximately 1.5 cm nonmobile cystic appearing lesion was on the ventral surface of the epiglottis. Moving beyond the epiglottis the arytenoids and false vocal cords were hyperemic and swollen. After passing the true vocal cords and getting into the airways the patient had excessive dynamic airway collapse greater than 50% of the airways. There was significant white sticky mucoid impaction in all lobes on the right. This was suctioned out with multiple aliquots of saline. BAL of the right lower lobe was obtained. Numerous mucoid casts were in the BAL. Examination of the left lung revealed hyperemic airways without significant mucoid impaction. Complications: None Specimens: Bronchial washings sent for culture and Gram stain, fungal elements, AFB stain and culture, cell count differential. Estimated blood loss: Zero Coding CPT Codes Pulmonary/Thoracic - Pulmonary and Thoracic: 49631 Dx bronchoscopy/BAL ([id number]) [facility] Procedure Codes ([place]) Pulmonary/Thoracic Procedure 1: Pulmonary and Thoracic: 87830 Dx bronchoscopy/BAL
[2022-03-04] MEDS ORDERED: METOPROLOL TARTRATE 1 MG/ML VIAL IV STA ×2 (08:25→08:26)
--- NOTE | 2022-03-04 08:42 | Surgery Progress Note ---
Date of Service March 04, 2022 Assessment & Plan (1) S/P exploratory laparotomy: Plan: Had bronch earlier today. Condition slowly improving. Will continue to observe circulation to legs. Most likely will need an ax bifem in the future rather than an AF2 either transabdominal or retro peritoneal approach. Will not plan on doing this for at least 6 to 8 weeks unless he develops severe acute ischemia of the lower extremities. Admission and Anticipated Discharge Date Admission Date: February 28, 2022 Subjective Patient on CPAP. Does not appear SOB at present. Physical Exam Constitutional: + ill appearing Respiratory: normal respiratory effort Cardiovascular: Rate/Rhythm: regular rate, regular rhythm and + tachycardic Vessels: + posterior tibial pulses abnormal and + dorsalis pedis pulses abnormal Gastrointestinal (Abdomen): Inspection/Auscultation: abdomen normal to inspection and + abdomen distended Percussion/Palpation: abdomen soft Musculoskeletal: no cyanosis or clubbing, extremities motor strength 5/5 Skin: + incision (dressing in place) Psychiatric: Orientation: alert Results & Data ([facility]) Vital Signs (Past 12 Hours) Vital Signs Temp Pulse Pulse Pulse Resp BP Pulse Ox 03/04/22 07:45 03/04/22 08:16 110 H 23 94 03/04/22 08:16 152/84 H 03/04/22 08:15 108 H 20 95 03/04/22 08:14 145/84 H 03/04/22 08:14 108 H 22 95 03/04/22 08:12 137/83 03/04/22 08:12 109 H 23 95 03/04/22 08:10 109 H 20 96 03/04/22 08:10 148/88 H 03/04/22 08:08 110 H 26 H 95 03/04/22 08:08 160/96 H 03/04/22 08:06 110 H 27 H 97 03/04/22 08:06 148/79 H 03/04/22 08:05 109 H 24 96 03/04/22 08:04 111 H 26 H 96 03/04/22 08:04 139/82 03/04/22 08:02 110 H 26 H 94 03/04/22 08:02 142/79 H 03/04/22 08:01 113 H 32 H 95 03/04/22 08:01 128/96 03/04/22 08:00 113 H 20 96 03/04/22 07:58 111 H 20 96 03/04/22 07:58 140/79 03/04/22 07:56 112 H 35 H 98 03/04/22 07:56 139/79 03/04/22 07:55 111 H 31 H 97 03/04/22 07:54 111 H 30 H 97 03/04/22 07:54 138/79 03/04/22 07:52 111 H 34 H 99 03/04/22 07:52 144/70 H 03/04/22 07:50 112 H 35 H 96 03/04/22 07:50 146/78 H 03/04/22 07:48 117 H 38 H 94 03/04/22 07:48 169/76 H 03/04/22 07:45 126 H 25 H 96 03/04/22 07:45 199/94 H 03/04/22 07:43 127 H 21 96 03/04/22 07:43 192/140 H 03/04/22 07:40 125 H 33 H 96 03/04/22 07:40 181/93 H 03/04/22 07:38 137 H 28 H 97 03/04/22 07:38 211/106 H 03/04/22 07:35 159 H 33 H 97 03/04/22 07:30 132 H 23 98 03/04/22 07:46 130 H 190/80 H 03/04/22 07:39 160 H 190/80 H 03/04/22 07:25 03/04/22 06:28 133 H 28 H 95 03/04/22 06:28 130 H 27 H 97 03/04/22 05:00 37.1 C 128 H 24 91 03/04/22 05:00 156/87 H 03/04/22 04:00 122 H 21 93 03/04/22 04:00 178/87 H 03/04/22 03:00 123 H 19 92 03/04/22 03:00 160/84 H 03/04/22 02:00 126 H 19 93 03/04/22 02:00 151/85 H 03/04/22 01:00 130 H 24 93 03/04/22 01:00 146/75 H 03/04/22 00:00 121 H 20 90 03/04/22 00:00 140/72 03/03/22 23:00 123 H 20 91 03/03/22 23:00 160/82 H 03/03/22 22:00 124 H 21 93 03/03/22 22:00 144/83 H 03/04/22 04:05 124 H 22 91 03/04/22 01:40 126 H 146/75 H 03/04/22 00:45 123 H 20 90 03/03/22 23:00 124 H 21 93 03/03/22 21:00 122 H 19 90 03/03/22 21:00 154/83 H O2 Del Method O2 Flow Rate FiO2 03/04/22 07:45 BiPAP 03/04/22 08:16 03/04/22 08:16 03/04/22 08:15 03/04/22 08:14 03/04/22 08:14 03/04/22 08:12 03/04/22 08:12 03/04/22 08:10 03/04/22 08:10 03/04/22 08:08 03/04/22 08:08 03/04/22 08:06 03/04/22 08:06 03/04/22 08:05 03/04/22 08:04 03/04/22 08:04 03/04/22 08:02 03/04/22 08:02 03/04/22 08:01 03/04/22 08:01 03/04/22 08:00 03/04/22 07:58 03/04/22 07:58 03/04/22 07:56 03/04/22 07:56 03/04/22 07:55 03/04/22 07:54 03/04/22 07:54 03/04/22 07:52 03/04/22 07:52 03/04/22 07:50 03/04/22 07:50 03/04/22 07:48 03/04/22 07:48 03/04/22 07:45 03/04/22 07:45 03/04/22 07:43 03/04/22 07:43 03/04/22 07:40 03/04/22 07:40 03/04/22 07:38 03/04/22 07:38 03/04/22 07:35 03/04/22 07:30 03/04/22 07:46 03/04/22 07:39 03/04/22 07:25 BiPAP 03/04/22 06:28 65 03/04/22 06:28 BiPAP 80 03/04/22 05:00 03/04/22 05:00 03/04/22 04:00 03/04/22 04:00 03/04/22 03:00 03/04/22 03:00 03/04/22 02:00 03/04/22 02:00 03/04/22 01:00 03/04/22 01:00 03/04/22 00:00 03/04/22 00:00 03/03/22 23:00 03/03/22 23:00 03/03/22 22:00 03/03/22 22:00 03/04/22 04:05 High Flow Nasal Cannula 60 85 03/04/22 01:40 03/04/22 00:45 High Flow Nasal Cannula 60 85 03/03/22 23:00 High Flow Nasal Cannula 60 75 03/03/22 21:00 03/03/22 21:00
[2022-03-04] MEDS ORDERED: AZITHROMYCIN 500 MG in DEXTROSE 5% 250 ML IV SCH (09:01)
[2022-03-04] MEDS: NICOTINE 21 MG/24 HR TDSY TD SCH (09:11)
[2022-03-04] MEDS: AZITHROMYCIN 500 MG in DEXTROSE 5% 250 ML IV SCH (09:28)
[2022-03-04] MEDS ORDERED: LIDOCAINE 2% LOCAL 50 ML VIAL ONE (10:04)
[2022-03-04] MEDS ORDERED: LIDOCAINE 4% INH SOLN 4 ML BTL ONE (10:04)
[2022-03-04] MEDS ORDERED: VANCOMYCIN LEVEL ONE (11:30)
[2022-03-04] MEDS: POTASSIUM CHLORIDE / WTR 10 MEQ/100 ML PLCT IV SCH ×6 (11:43→17:18)
[2022-03-04] MEDS: cefTRIAXone SODIUM 2,000 MG in DEXTROSE 5% 50 ML IV SCH (11:43)
[2022-03-04] MEDS: PANTOprazole 40 MG in SYRINGE 0 ML IV SCH (11:44)
--- NOTE | 2022-03-04 12:15 | XRay Report ---
XR chest 1V portable CLINICAL HISTORY: respiratory distress TECHNIQUE: Single frontal radiograph of the chest was obtained. Comparison: Comparison is made to chest radiograph 03/03/2021 FINDINGS: No lines and tubes are seen. Cardiomegaly is noted. Interval mild worsening of diffuse airspace opaci ties. No evidence of pleural effusion or pneumothorax. IMPRESSION: Interval worsening of bilateral airspace opacities which likely represent pneumonia and/or pulmonary edema. ACT 112: Negative or not required by law. Electronically signed by: Shaq Ireland M.D. 03/04/2022 12:13 PM
--- NOTE | 2022-03-04 12:56 | Pharmacy Report ---
Pharmacy PK ABX Note - Date of Service March 04, 2022 - Assessment and Plan Assessment 56 year old M receiving vancomycin for treatment of sepsis. Currently on ceftriaxone, azithromycin, and vancomycin WBC improving. Renal function stable Vancomycin * Maintenance dose: 1000 mg IV every 12 hours * Trough level of 10.6 mcg/mL today. * Regimen is predicted to achieve target AUC/PHILLIP of 400-600 mg/L.hr Plan * Continue vancomycin 1000 mg IV q12h * Trough or random level in ~72 hours if still on vancomycin, or sooner if renal function changes Pharmacy will continue to follow and will adjust dose/frequency as necessary. Thank you. Pharmacy has transitioned to AUC monitoring for vancomycin. AUC/PHILLIP is the preferred PK/PD target and is associated with decreased risk of nephrotoxicity compared to traditional trough targets.
[2022-03-04] MEDS: ENOXAPARIN INJ 40 MG/0.4 ML SYR SQ SCH (16:07)
[2022-03-05] MEDS: ALBUT/IPRATROP 3MG/0.5MG NEB 3 ML VIAL NEB SCH ×4 (00:46→19:44)
[2022-03-05] MEDS: METOPROLOL TARTRATE 1 MG/ML VIAL IV SCH (01:09)
[2022-03-05 05:15] LABS: Basophils % (auto) 0.3 %; Eosinophils # (auto) 0.11 K/uL (0-0.50); Hematocrit (blood only) 40.2 % (40.1-51.0); Hemoglobin 13.9 g/dl (14.0-18.0); Immature Granulocytes % (auto) 0.4 %; Lymphocytes # (auto) 0.83 K/uL (1.2-3.4); Lymphocytes % (auto) 7.2 %; Mean Corpuscular Hemoglobin 28.9 pg (25.0-34.0); Mean Corpuscular Hgb Conc 34.6 g/dL (32.0-36.0); Mean Corpuscular Volume 83.6 fL (80.0-100.0); Mean Platelet Volume 10.2 fL (9.4-12.4); Monocytes # (auto) 0.69 K/uL (0.24-0.82); Neutrophils # (auto) 9.83 K/uL (1.4-6.5); Neutrophils % (auto) 85.1 %; Platelet Count 197 K/uL (130-400); RDW Coefficient of Variation 14.3 % (11.5-14.5); RDW Standard Deviation 44.2 fL (36.4-46.3); Red Blood Count 4.81 M/uL (4.63-6.08); White Blood Count 11.55 K/ul (4.8-10.8)
[2022-03-05 05:16] LABS: Basophils # (auto) 0.04 K/uL (0-0.2); Immature Granulocytes # (auto) 0.05 K/uL (0.00-0.02)
[2022-03-05 05:33] LABS: BUN Creatinine Ratio 22.4 (10-20); Calcium 8.4 mg/dl (8.5-10.1); Creatinine Clr Calc Pharmacy 103.1 ml/min; Est GFR (African American) 117.4 ml/min; Est GFR (Non-African American) 101.3 ml/min; Phosphorus 2.8 mg/dl (2.5-4.9); Potassium 3.8 mmol/L (3.5-5.1)
--- NOTE | 2022-03-05 07:49 | Critical Care Progress Note ---
Date of Service March 05, 2022 Assessment & Plan (1) Sepsis: Plan: Pt is a 56 yo male with PMH of NC in 2013 requiring 3 stents, COPD, depression, gastric ulcer w/ subsequent GI bleed, HLD, HTN, and PAD s/p bilateral LE stents presenting to the hospital on 02/28 chronic aortic occlusion, severe peripheral vascular disease. Reason critically ill: Pt upgraded to ICU 03/02 d/t tachycardia, increasing oxygen requirement, and sepsis. Neuro: - Pt alert and oriented - CAM-ICU: negative - No concerns at this time Cardiac: - hx of NC in 2013 s/p 3 stents per pt; takes metoprolol, statin, and clopidogrel at home - hx of significant PAD s/p BL LE stenting - echo showed EF 55-60% w/ mild LVH Tachycardia -Transition to metoprolol 12.5 twice daily Respiratory: - acute hypoxic respiratory failure - hx of COPD, current every day smoker -Mucoid impaction of bronchi -Status post 03/04 bronchoscopy -Aggressive chest physiotherapy, out of bed to chair 3 times daily - continue duoneb q6hr, OOB TID w/ PT and OT consults to promote lung expansion, chest percussion therapy TID - awaiting BAL results -If no MRSA will discontinue vancomycin Epiglottic Mass - CTA neck today -IMPRESSION: 1. Atherosclerotic vascular disease. No aneurysm, dissection, high-grade stenosis or arterial occlusion identified. 2. Mild enlargement of the adenoid tonsils with two subadjacent fluid attenuating foci within the right vallecula abutting the epiglottis. Additionally, there is asymmetric soft tissue thickening within the right vallecula measuring up to 1.3 cm. Correlation with direct visualization recommended. 3. Indeterminate 1.2 cm lesion of the right parotid gland. Nonemergent follow-up ultrasound recommended. 4. Intralobular septal thickening of the lung apices with crazy paving pattern redemonstrated. Findings statistically favor pulmonary edema. 5. 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 -Recommend nonemergent follow-up with ear nose and throat GI: -Advance diet as tolerated - PT/OT and OOB TID to promote return of bowel function Renal/electrolytes: : - Discontinue beebe catheter Endo: - Follow ICU hyperglycemic protocols Heme: - Stable Hgb and Hct, continue to monitor ID: - pt's WBC improving - blood cx no growth to date - fungal cultures pending - BAL pending - downgraded ABX to zithromax and rocephin, continue vanco pending BAL -Consider administration of steroids for severe pneumonia. Recent surgery is a relative contraindication. Cultures obtained and on empiric antibiotics. I feel there is more risk from hyperglycemia and concern for possible indolent infection then there is benefit from glucocorticoids. Lines/IV access: peripheral IV DVT ppx: lovenox 40 mg daily Acute critical care needs largely resolved. Hospital medicine following. Will be seen by speech. Critical care will sign off at this time. (2) COPD (chronic obstructive pulmonary disease): (3) S/P exploratory laparotomy: (4) Acute respiratory failure with hypoxia: (5) HTN (hypertension): (6) CAD (coronary artery disease): (7) Epiglottic lesion: Admission and Anticipated Discharge Date Admission Date: February 28, 2022 Subjective Feels better than yesterday, sitting upright in chair tolerating liquids passing flatus. Physical Exam Physical Exam: General: Alert. nontoxic. Skin: Warm, dry, Head: Atraumatic Ears, nose, mouth and throat: airway patent Cardiovascular: Normal peripheral perfusion Respiratory: no respiratory distress Gastrointestinal: Non distended, incision clean dry intact Musculoskeletal: No deformity Results & Data Results & Data ([facility]) Vital Signs (Past 12 Hours) Vital Signs Pulse Pulse Pulse Resp BP Pulse Ox O2 Del Method 03/05/22 07:08 113 H 26 H 97 High Flow Nasal Cannula 03/05/22 03:26 104 H 20 96 High Flow Nasal Cannula 03/05/22 01:09 116 H 147/77 H 03/05/22 00:46 108 H 22 92 High Flow Nasal Cannula 03/04/22 22:30 112 H 18 92 High Flow Nasal Cannula 03/04/22 20:00 High Flow Nasal Cannula 03/04/22 19:59 100 H 16 93 High Flow Nasal Cannula O2 Flow Rate FiO2 03/05/22 07:08 40 60 03/05/22 03:26 40 80 03/05/22 01:09 03/05/22 00:46 40 90 03/04/22 22:30 40 80 03/04/22 20:00 40 60 03/04/22 19:59 40 60 Critical Care Results & Data Vital Signs (Past 12 Hours) Vital Signs Pulse Pulse Pulse Resp BP Pulse Ox O2 Del Method 03/05/22 07:08 113 H 26 H 97 High Flow Nasal Cannula 03/05/22 03:26 104 H 20 96 High Flow Nasal Cannula 03/05/22 01:09 116 H 147/77 H 03/05/22 00:46 108 H 22 92 High Flow Nasal Cannula 03/04/22 22:30 112 H 18 92 High Flow Nasal Cannula 03/04/22 20:00 High Flow Nasal Cannula 03/04/22 19:59 100 H 16 93 High Flow Nasal Cannula O2 Flow Rate FiO2 03/05/22 07:08 40 60 03/05/22 03:26 40 80 03/05/22 01:09 03/05/22 00:46 40 90 03/04/22 22:30 40 80 03/04/22 20:00 40 60 03/04/22 19:59 40 60 Lab & Micro Results (Past 24 Hours) RBC 4.81 M/uL (4.63-6.08) 03/05/22 WBC 11.55 K/ul (4.8-10.8) H 03/05/22 Hgb 13.9 g/dl (14.0-18.0) L 03/05/22 Hct 40.2 % (40.1-51.0) 03/05/22 MCV 83.6 fL (80.0-100.0) 03/05/22 MCH 28.9 pg (25.0-34.0) 03/05/22 MCHC 34.6 g/dL (32.0-36.0) 03/05/22 RDW Standard Deviation 44.2 fL (36.4-46.3) 03/05/22 RDW Coefficient of Variation 14.3 % (11.5-14.5) 03/05/22 Plt Count 197 K/uL (130-400) 03/05/22 MPV 10.2 fL (9.4-12.4) 03/05/22 Neutrophils (%) (Auto) 85.1 % 03/05/22 Lymphocytes (%) (Auto) 7.2 % 03/05/22 Monocytes # (Auto) 0.69 K/uL (0.24-0.82) 03/05/22 Eosinophils # (Auto) 0.11 K/uL (0-0.50) 03/05/22 Immature Granulocyte % (Auto) 0.4 % 03/05/22 Neutrophils # (Auto) 9.83 K/uL (1.4-6.5) H 03/05/22 Lymphocytes # (Auto) 0.83 K/uL (1.2-3.4) L 03/05/22 Monocytes # (Auto) 0.69 K/uL (0.24-0.82) 03/05/22 Eosinophils # (Auto) 0.11 K/uL (0-0.50) 03/05/22 Basophils # (Auto) 0.04 K/uL (0-0.2) 03/05/22 Immature Granulocyte # (Auto) 0.05 K/uL (0.00-0.02) H 03/05 Na 135 mmol/L (136-145) L 03/05/22 K 3.8 mmol/L (3.5-5.1) 03/05/22 Cl 100 mmol/L (98-107) 03/05/22 CO2 29 mmol/L (21-32) 03/05/22 Anion Gap 6 (3-11) 03/05/22 BUN 17 mg/dl (6-23) 03/05/22 Creatinine 0.76 mg/dl (0.6-1.4) 03/05/22 Estimated GFR ( Amer) 117.4 ml/min 03/05/22 Estimated GFR (Non-Af Amer) 101.3 ml/min 03/05/22 BUN/Creatinine Ratio 22.4 (10-20) H 03/05/22 Glu 83 mg/dl (70-99(Fasting)) 03/05/22 Ca 8.4 mg/dl (8.5-10.1) L 03/05/22 Phosphorus Level 2.8 mg/dl (2.5-4.9) 03/05/22 Mg 2.0 mg/dl (1.7-2.4) 03/05/22 04:57 Calcium Level 8.4 mg/dl (8.5-10.1) L 03/05/22 04:57 Microbiology 03/04/22 07:50 Fungal Smear - Final Bronch Wash,Right Lower Lobe 03/04/22 07:50 Gram Stain - Final Bronch Wash,Right Lower Lobe 03/02/22 11:17 Aerobic Blood Culture - Preliminary Blood No growth in Aerobic bottle after 48 hours. Anaerobic Blood Culture - Preliminary No growth in Anaerobic bottle after 48 hours. 03/02/22 11:17 Aerobic Blood Culture - Preliminary Blood No growth in Aerobic bottle after 48 hours. Anaerobic Blood Culture - Preliminary No growth in Anaerobic bottle after 48 hours. 03/03/22 15:34 Gram Stain - Final Sputum, Expectorated Sputum Culture - Preliminary Scant normal armaan present; Final report to follow. Diagnostic Findings (Past 24 Hours) Chest X-Ray 03/04/22 05:33 XR chest 1V portable CLINICAL HISTORY: respiratory distress TECHNIQUE: Single frontal radiograph of the chest was obtained. Comparison: Comparison is made to chest radiograph 03/03/2021 FINDINGS: No lines and tubes are seen. Cardiomegaly is noted. Interval mild worsening of diffuse airspace opacities. No evidence of pleural effusion or pneumothorax. IMPRESSION: Interval worsening of bilateral airspace opacities which likely represent pneumonia and/or pulmonary edema. ACT 112: Negative or not required by law. Electronically signed by: Shaq Ireland M.D. 03/04/2022 12:13 PM I & O Totals 24 Hours 03/04/22 03/05/22 03/06/22 06:59 06:59 06:59 Intake Total 1540 / 1540 1639.08 / 1639.08 Output Total 1150 / 1150 875 / 875 Balance 390 / 390 764.08 / 764.08 Cumulative 01/17/22 14:26 thru 03/05/22 06:00 Intake Total 94006.581 Output Total 7875 Balance 4656.581 RT Ventilator Mngmt (Last Documented) Ventilator Ordered Settings Respiratory Rate 26 03/05/22 07:08 Fraction of Inspired Oxygen 60 03/05/22 07:08 Ventilator - PT Measurements Respiratory Rate 26 Coding Level of Care Code 96275 SUB INP/OBS CARE 3/50MIN Diagnoses Sepsis A41.9 COPD (chronic obstructive pulmonary disease) J44.9 S/P exploratory laparotomy Z98.890 Acute respiratory failure with hypoxia J96.01 HTN (hypertension) I10 CAD (coronary artery disease) I25.10 Epiglottic lesion J38.7
[2022-03-05] MEDS ORDERED: OPTIRAY 320 500ml IV ONE (08:51)
[2022-03-05] MEDS: NICOTINE 21 MG/24 HR TDSY TD SCH (09:54)
[2022-03-05] MEDS: METOPROLOL SUCC 25MG EXT REL TAB PO SCH (09:54)
[2022-03-05] MEDS: AZITHROMYCIN 500 MG in DEXTROSE 5% 250 ML IV SCH (09:58)
--- NOTE | 2022-03-05 10:19 | Surgery Progress Note ---
Date of Service March 05, 2022 Assessment & Plan (1) S/P exploratory laparotomy: Plan: Doing much better respiratory joe. will continue to advance diet. Will start OT/PT. Admission and Anticipated Discharge Date Admission Date: February 28, 2022 Subjective Patient sitting in chair. Claims to be breathing better. No abdominal complaints. Tolerating liquids Physical Exam Constitutional: WD/WN, vitals as above + ill appearing Respiratory: no respiratory distress Cardiovascular: Rate/Rhythm: regular rate, regular rhythm and + tachycardic Vessels: femoral pulses present; + posterior tibial pulses abnormal and + dorsalis pedis pulses abnormal Extremities: + abnormal capillary refill Gastrointestinal (Abdomen): Inspection/Auscultation: abdomen normal to inspection and + abdomen distended Percussion/Palpation: + abdomen tender and abdomen soft Musculoskeletal: no cyanosis or clubbing, extremities motor strength 5/5 Skin: + incision (dressing in place) Neurologic: CN's II-XI intact bilaterally and moves all extremities Psychiatric: Orientation: alert and oriented x 3 Results & Data ([facility]) Vital Signs (Past 12 Hours) Vital Signs Pulse Pulse Pulse Resp BP Pulse Ox O2 Del Method 03/05/22 07:08 113 H 26 H 97 High Flow Nasal Cannula 03/05/22 03:26 104 H 20 96 High Flow Nasal Cannula 03/05/22 01:09 116 H 147/77 H 03/05/22 00:46 108 H 22 92 High Flow Nasal Cannula 03/04/22 22:30 112 H 18 92 High Flow Nasal Cannula O2 Flow Rate FiO2 03/05/22 07:08 40 60 03/05/22 03:26 40 80 03/05/22 01:09 03/05/22 00:46 40 90 03/04/22 22:30 40 80
--- NOTE | 2022-03-05 10:38 | CT Scan Report ---
CT angio neck with con CLINICAL HISTORY: 56 years-old Male with large epiglottic lesion, + smoking hx. Acute neck pain wi th reported lesion of the epiglottis. COMPARISON STUDY: CTA chest March 02, 2022 TECHNIQUE: Following the IV administration of 115 cc of Optiray, CT angiogram of the neck was perform ed from the aortic arch to the skull base. Images are reviewed in the axial, sagittal, and coronal pl anes. 3-D MIPS images are created and assessed. IV contrast was administered without complication. Al l measurements were calculated based on NASCET criteria. A dose lowering technique was utilized adhe ring to the principles of ALARA. CT DOSE: 489.94 mGy.cm FINDINGS: Atherosclerosis of the thoracic aortic arch with three-vessel morphology. Patency of the innominate a nd imaged subclavian arteries. The common carotid arteries are patent. There is moderate atherosclero tic plaque of the carotid bulbs and cervical segments of the internal carotid arteries. Patent automotive internet sales consultant al carotid arteries. Codominant and patent vertebral arteries. Basilar artery appears unremarkable. N o aneurysm, dissection, high-grade stenosis or arterial occlusion. Intralobular septal thickening with mosaic attenuation, intermixed groundglass and consolidative opac ities of the lung apices, mildly progressed compared to the March 02, 2022 exam. Mild tracheobronch ial secretions. Subcentimeter emboli enlarged mediastinal lymph nodes are again noted measuring up to 10 mm. Unremarkable thyroid. No pathologically enlarged cervical chain lymph nodes. 1.1 cm cystic le rey of the adenoid tonsils. The midline. Mild enlargement of the lingual tonsils with fluid attenuat ing foci noted within the right vallecula measuring up to 1.6 cm. Large left mastoid effusion. Mild to moderate mucosal thickening of the paranasal sinuses. Degenerati ve changes of the cervical spine. No acute fracture or destructive bone lesion identified. Indetermin ate 1.2 cm lesion of the superficial lobe of the right parotid gland with subcentimeter calcification . IMPRESSION: 1. Atherosclerotic vascular disease. No aneurysm, dissection, high-grade stenosis or arterial occlusi on identified. 2. Mild enlargement of the adenoid tonsils with two subadjacent fluid attenuating foci within the rig ht vallecula abutting the epiglottis. Additionally, there is asymmetric soft tissue thickening within the right vallecula measuring up to 1.3 cm. Correlation with direct visualization recommended. 3. Indeterminate 1.2 cm lesion of the right parotid gland. Nonemergent follow-up ultrasound recommend ed. 4. Intralobular septal thickening of the lung apices with crazy paving pattern redemonstrated. Findin gs statistically favor pulmonary edema. 5. 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 ACT 112: Negative or not required by law. The above report was generated using voice recognition software. It may contain grammatical, syntax o r spelling errors. Electronically signed by: Pankaj Moran M.D. 03/05/2022 10:35 AM
[2022-03-05] MEDS: cefTRIAXone SODIUM 2,000 MG in DEXTROSE 5% 50 ML IV SCH (12:06)
[2022-03-05] MEDS: PANTOprazole 40 MG in SYRINGE 0 ML IV SCH (12:06)
[2022-03-05] MEDS: VANCOMYCIN HCL 1,000 MG in SODIUM CHLORIDE 0.9% 250 ML IV SCH (12:07)
[2022-03-05] MEDS ORDERED: SODIUM CHLORIDE 0.65% NA SOLN 45 ML (OCEAN) ONE (12:28)
[2022-03-05] MEDS: SODIUM CHLORIDE 0.65% NA SOLN 45 ML (OCEAN) PRN (13:08)
[2022-03-05] MEDS: ENOXAPARIN INJ 40 MG/0.4 ML SYR SQ SCH (18:45)
[2022-03-06] MEDS: VANCOMYCIN HCL 1,000 MG in SODIUM CHLORIDE 0.9% 250 ML IV SCH ×2 (00:21→14:14)
[2022-03-06] MEDS: ALBUT/IPRATROP 3MG/0.5MG NEB 3 ML VIAL NEB SCH ×4 (01:41→19:04)
[2022-03-06 07:02] LABS: Eosinophil Body Fluid Man 1 %; Fluid Mono/Macrophage 0 %; Lymphocyte Body Fluid Man 2 %; Neutrophil Body Fluid Man 95 %
[2022-03-06] MEDS: AZITHROMYCIN 500 MG in DEXTROSE 5% 250 ML IV SCH (08:16)
[2022-03-06] MEDS: NICOTINE 21 MG/24 HR TDSY TD SCH (08:16)
[2022-03-06] MEDS: METOPROLOL SUCC 25MG EXT REL TAB PO SCH (08:17)
--- NOTE | 2022-03-06 09:21 | Surgery Progress Note ---
Date of Service March 06, 2022 Assessment & Plan (1) S/P exploratory laparotomy: Plan: Improved respiratory status, although continues to require oxygen via oxymask. Remains mildly tachycardic and hypertensive. will continue to advance diet pending swallowing study results. Continue OT/PT. Admission and Anticipated Discharge Date Admission Date: February 28, 2022 Subjective 56 yo m POD #7 after aborted aortobifem bypass, seen in f/u today. Pt states feeling improved. Denies any new complaints. Is scheduled for video swallowing study later today. Continues to require oxygen via oxymask. Review of Systems Review of Systems: All systems reviewed & are unremarkable except as noted in HPI & below Physical Exam Constitutional: WD/WN, vitals as above + ill appearing Respiratory: no respiratory distress Auscultation: + crackles (and coarse, wet cough noted) Cardiovascular: Rate/Rhythm: + tachycardic Vessels: + posterior tibial pulses abnormal and + dorsalis pedis pulses abnormal Extremities: + abnormal capillary refill Gastrointestinal (Abdomen): Inspection/Auscultation: + abdomen distended Percussion/Palpation: + abdomen tender and abdomen soft Musculoskeletal: no cyanosis or clubbing, extremities motor strength 5/5 Skin: + incision (C/D/I with familia.) Neurologic: CN's II-XI intact bilaterally and moves all extremities Psychiatric: Orientation: alert and oriented x 3 Results & Data ([facility]) Vital Signs (Past 12 Hours) Vital Signs Temp Pulse Pulse Resp BP BP Pulse Ox 03/06/22 08:04 36.7 C 116 H 20 171/87 H 93 03/06/22 06:26 109 H 20 94 03/06/22 06:00 99 H 21 92 03/06/22 06:00 157/83 H 03/06/22 05:00 99 H 22 92 03/06/22 05:00 152/87 H 03/06/22 04:00 93 H 18 90 03/06/22 04:00 148/85 H 03/06/22 03:00 101 H 16 89 L 03/06/22 03:00 151/76 H 03/06/22 02:00 106 H 20 03/06/22 02:00 149/82 H 03/06/22 01:00 101 H 20 03/06/22 01:00 159/82 H 03/06/22 00:00 105 H 17 91 01/23/23 00:00 174/90 H 03/05/22 23:00 104 H 22 94 03/05/22 23:00 160/88 H 03/05/22 22:00 111 H 23 95 03/05/22 22:00 154/88 H 03/06/22 01:41 102 H 22 96 O2 Del Method O2 Flow Rate 03/06/22 08:04 Nasal Cannula 3.0 03/06/22 06:26 Oxymask 6 03/06/22 06:00 03/06/22 06:00 03/06/22 05:00 03/06/22 05:00 03/06/22 04:00 03/06/22 04:00 03/06/22 03:00 03/06/22 03:00 03/06/22 02:00 03/06/22 02:00 03/06/22 01:00 03/06/22 01:00 03/06/22 00:00 03/06/22 00:00 03/05/22 23:00 03/05/22 23:00 03/05/22 22:00 03/05/22 22:00 03/06/22 01:41 Oxymask 6
[2022-03-06] MEDS: SODIUM CHLORIDE 0.65% NA SOLN 45 ML (OCEAN) PRN (10:06)
[2022-03-06] MEDS: PANTOprazole 40 MG in SYRINGE 0 ML IV SCH (11:34)
[2022-03-06] MEDS: cefTRIAXone SODIUM 2,000 MG in DEXTROSE 5% 50 ML IV SCH (11:35)
--- NOTE | 2022-03-06 14:00 | Fluoroscopy Report ---
FL video swallow CLINICAL HISTORY: 56 years-old Male with r/o aspiration. Acute shortness of breath with dysphasia an d possible aspiration TECHNIQUE: Video fluoroscopic evaluation of swallowing was performed in the AP and lateral projection s by the speech pathology staff. The patient is fed thin liquid barium, mildly thick, pudding and aircraft pneudraulic systems mechanic cker with paste consistencies. FLUOROSCOPY TIME: 2.1 minutes. COMPARISON STUDY: CTA chest 03/02/2022 FINDINGS: Monitor leads are coiled over the upper chest. There is normal hyoid excursion and epiglott ic deflection. No significant penetration or aspiration identified. Swallowing function is within nor mal limits. IMPRESSION: 1. No aspiration identified. 2. Please see the speech pathologist report for detailed findings and recommendations. ACT 112: Negative or not required by law. Electronically signed by: Pankaj Moran M.D. 03/06/2022 1:59 PM
--- NOTE | 2022-03-06 17:20 | Hospitalist Progress Note ---
Date of Service March 06, 2022 Assessment & Plan (1) Acute respiratory failure with hypoxia: Plan: Acute pulmonary edema + b/l pneumonia. May have had ARDS given CXR appearance (diffuse, b/l infiltrates) and very high HFNC requirements. No obvious PE on CTA Chest 03/02/22 although images were suboptimal. Marked improvement; down to 4 L of O2 today. Day #5 of IV abx. Previously has received diuretics. (2) Acute pulmonary edema: Plan: acute diastolic CHF - 03/02/22. s/p lasix with copious diuresis. had echo 12/13/21 through [employer] (see scanned report) showing EF 60% with normal valve function. echo here with preserved EF. Consider additional lasix tomorrow. Repeat cxr in am. (3) Bilateral pneumonia: Plan: day #5 of IV abx therapy initially was on IV zosyn, then changed to IV rocephin/zithromax bronch cultures negative except yonny blood cx's negative plan 7 days in total of Rx repeat cxr am (4) Sepsis: Plan: resolved 2nd to pneumonia blood cx's negative finish abx course (5) S/P exploratory laparotomy: Plan: POD #6 - ex lap -- aborted attempt at aortobifemoral bypass. abscess found (Very small) on greater curvature of the stomach - culture negativ e. will need to discuss with vascular length of abx course for this ex lap finding. (6) Hypokalemia: Plan: replaced resolved repeat BMP am (7) Hypomagnesemia: Plan: replaced resolved repeat mag level am (8) Tachycardia: Plan: sinus ongoing 2nd to acute respiratory failure 2nd to off his usual dose of metoprolol etc no a.fib, other dysrhythmia seen while here (9) CAD (coronary artery disease): Plan: Lexiscan nuclear stress test 12/2021 via [employer] (see scanned documents) was negative for myocardial ischemia. Troponin negative here - no evidence of ACS. (10) COPD (chronic obstructive pulmonary disease): Plan: cont bronchodilators wheezing improved today on exam (11) HTN (hypertension): Plan: uncontrolled resume amlodipine - 5mg daily increase metoprolol succinate to 25mg daily (12) History of myocardial infarction: Plan: noted typically on statin, plavix, metoprolol resume statin and plavix tomorrow am (13) History of gastric ulcer: Plan: change IV PPI to PO PPI (14) Aortic occlusion: Plan: s/p ex lap with aborted attempt at aortobifemoral bypass. (15) Abdominal distension: Plan: had expected postoperative ileus resolved passing flatus/stool tolerating diet (16) Hyponatremia: Plan: 2nd to diuresis repeat bmp am (17) Epiglottic lesion: Plan: per CT neck dated 03/05/22 -- * "Mild enlargement of the adenoid tonsils with two subadjacent fluid attenuating foci within the right vallecula abutting the epiglottis. Additionally, there is asymmetric soft tissue thickening within the right vallecula measuring up to 1.3 cm. Correlation with direct visualization recommended." * "Indeterminate 1.2 cm lesion of the right parotid gland. Nonemergent follow-up ultrasound recommended." will d/w ENT before discharge laryngoscopy while here especially since it is abutting the epiglottis? fortunately these findings are not compromising his swallow function; video swallow exam wnl today. (18) DVT prophylaxis: Plan: lovenox daily Plan appreciate critical care assistance appreciate vascular assistance PT/OT evals - rehab recommended transfer from ICU to med-tele I will assume primary attending status at the request of Dr Pennington Admission and Anticipated Discharge Date Admission Date: February 28, 2022 Subjective patient sitting in chair eating his meal he feels much better no dyspnea today O2 has been weaned considerably still some cough passing flatus BM yesterday pain in abdomen much better Review of Systems Review of Systems: gen - no fevers, energy improved cv - no cp pulm - minimal sputum GI - pain improved; no nausea or emesis Physical Exam Physical Exam: gen - looks much better than previous visit; sitting in chair; NAD HENT - mouth with MMM, poor dentition neck - no JVD present sitting upright heart - tachycardic, s1 s2, no murmur lungs - diffuse wheezes resolved; b/l basilar dry rales present abd - distension much improved, BS+, nontender ext - pulses both feet 1+ b/l, no edema skin - large vertical incision on abdominal wall with intact familia Results & Data Results & Data ([facility]) Vital Signs (Past 12 Hours) Vital Signs Temp Pulse Pulse Resp BP BP Pulse Ox 03/06/22 15:59 36.7 C 90 21 166/85 H 99 03/06/22 15:22 96 03/06/22 14:07 92 H 18 98 03/06/22 12:00 97 H 17 92 03/06/22 12:00 141/83 H 03/06/22 11:10 105 H 22 95 03/06/22 11:10 162/85 H 03/06/22 11:00 102 H 22 97 03/06/22 10:00 98 H 20 91 03/06/22 10:00 147/88 H 03/06/22 09:55 98 H 20 90 03/06/22 09:55 155/85 H 03/06/22 09:53 98 H 15 89 L 03/06/22 09:53 131/78 03/06/22 11:56 36.7 C 100 H 19 162/85 H 95 03/06/22 09:00 105 H 22 92 03/06/22 09:00 172/92 H 03/06/22 08:00 118 H 25 H 91 03/06/22 08:00 182/94 H 03/06/22 07:40 171/87 H 03/06/22 07:40 119 H 22 92 03/06/22 07:00 110 H 20 94 03/06/22 07:00 161/85 H 03/06/22 08:04 36.7 C 116 H 20 171/87 H 93 03/06/22 06:26 109 H 20 94 03/06/22 06:00 99 H 21 92 03/06/22 06:00 157/83 H O2 Del Method O2 Flow Rate 03/06/22 15:59 Oxymask 4.0 03/06/22 15:22 03/06/22 14:07 Nasal Cannula 4 03/06/22 12:00 03/06/22 12:00 03/06/22 11:10 03/06/22 11:10 03/06/22 11:00 03/06/22 10:00 03/06/22 10:00 03/06/22 09:55 03/06/22 09:55 03/06/22 09:53 03/06/22 09:53 03/06/22 11:56 Nasal Cannula 4.0 03/06/22 09:00 Oxymask 2 03/06/22 09:00 03/06/22 08:00 Nasal Cannula 4 03/06/22 08:00 03/06/22 07:40 03/06/22 07:40 03/06/22 07:00 03/06/22 07:00 03/06/22 08:04 Nasal Cannula 3.0 03/06/22 06:26 Oxymask 6 03/06/22 06:00 03/06/22 06:00 PG Care Time/CCT Total # of Minutes Spent Total Time Spent with Patient: Total time spent is greater than 50% in coordination of care (as documented) at patient's floor/unit and/or counseling patient: Coding Level of Care Code 54124 SUB INP/OBS CARE 3/50MIN Diagnoses Acute respiratory failure with hypoxia J96.01 Acute pulmonary edema J81.0 Bilateral pneumonia J18.9 Sepsis A41.9 S/P exploratory laparotomy Z98.890 Hypokalemia E87.6 Hypomagnesemia E83.42 Tachycardia R00.0 CAD (coronary artery disease) I25.10 COPD (chronic obstructive pulmonary disease) J44.9 HTN (hypertension) I10 History of myocardial infarction I25.2 History of gastric ulcer Z87.11 Aortic occlusion I70.0 Abdominal distension R14.0 Hyponatremia E87.1 Epiglottic lesion J38.7 DVT prophylaxis Z29.9
[2022-03-06] MEDS: ENOXAPARIN INJ 40 MG/0.4 ML SYR SQ SCH (18:23)
[2022-03-07] MEDS: ALBUT/IPRATROP 3MG/0.5MG NEB 3 ML VIAL NEB SCH ×4 (01:57→19:24)
[2022-03-07 06:41] LABS: Basophils # (auto) 0.05 K/uL (0-0.2); Basophils % (auto) 0.5 %; Eosinophils # (auto) 0.26 K/uL (0-0.50); Eosinophils % (auto) 2.4 %; Hematocrit (blood only) 38.8 % (40.1-51.0); Hemoglobin 13.2 g/dl (14.0-18.0); Immature Granulocytes # (auto) 0.09 K/uL (0.00-0.02); Immature Granulocytes % (auto) 0.8 %; Lymphocytes # (auto) 1.35 K/uL (1.2-3.4); Lymphocytes % (auto) 12.2 %; Mean Corpuscular Hemoglobin 28.8 pg (25.0-34.0); Mean Corpuscular Volume 84.7 fL (80.0-100.0); Mean Platelet Volume 10.4 fL (9.4-12.4); Monocytes # (auto) 0.81 K/uL (0.24-0.82); Monocytes % (auto) 7.3 %; Neutrophils # (auto) 8.47 K/uL (1.4-6.5); Neutrophils % (auto) 76.8 %; Platelet Count 219 K/uL (130-400); RDW Coefficient of Variation 14.3 % (11.5-14.5); RDW Standard Deviation 44.1 fL (36.4-46.3); Red Blood Count 4.58 M/uL (4.63-6.08); White Blood Count 11.03 K/ul (4.8-10.8)
[2022-03-07 07:04] LABS: Calcium 8.3 mg/dl (8.5-10.1); Magnesium 1.7 mg/dl (1.7-2.4); Potassium 3.1 mmol/L (3.5-5.1)
[2022-03-07 07:09] LABS: BUN Creatinine Ratio 13.7 (10-20); Creatinine Clr Calc Pharmacy 105.2 ml/min; Est GFR (African American) 119.3 ml/min
[2022-03-07] MEDS: NICOTINE 21 MG/24 HR TDSY TD SCH (08:24)
[2022-03-07] MEDS ORDERED: MAGNESIUM SULFATE / D5W 1 GM/100 ML BAG IV ONE (08:25)
[2022-03-07] MEDS: METOPROLOL SUCC 25MG EXT REL TAB PO SCH (08:25)
[2022-03-07] MEDS: PANTOprazole 40 MG TAB PO SCH (08:38)
[2022-03-07] MEDS: CLOPIDOGREL BISULFATE 75 MG TAB PO SCH (08:38)
[2022-03-07] MEDS: amLODIPine BESYLATE 5 MG TAB PO SCH (08:39)
[2022-03-07] MEDS: ATORVASTATIN 40 MG TAB PO SCH (08:39)
[2022-03-07] MEDS: AZITHROMYCIN 500 MG in DEXTROSE 5% 250 ML IV SCH (08:47)
--- NOTE | 2022-03-07 09:46 | XRay Report ---
XR chest 2V PA/lateral HISTORY: b/l infiltrates, interval change COMPARISON: Chest 03/04/2022. FINDINGS: No pneumothorax. There are trace bilateral pleural effusions. The heart remains enlarged. T here are low lung volumes. Diffuse interstitial thickening has improved. This favors resolving pulmon bandar edema. Bibasilar linear densities persist and may represent atelectasis or pneumonia. IMPRESSION: 1. Interval improvement in the pulmonary edema. 2. Small bilateral pleural effusions and bibasilar densities persist. This may represent atelectasis or pneumonia. ACT 112: Negative or not required by law. Electronically signed by: Enoch Santiago M.D. 03/07/2022 9:45 AM
[2022-03-07] MEDS: POTASSIUM CHLORIDE CRTAB 20 MEQ TABCR PO SCH ×3 (10:59→20:43)
[2022-03-07] MEDS ORDERED: VANCOMYCIN LEVEL ONE (11:30)
[2022-03-07] MEDS: cefTRIAXone SODIUM 2,000 MG in DEXTROSE 5% 50 ML IV SCH (13:41)
[2022-03-07] MEDS ORDERED: FUROSEMIDE 20 MG TAB PO ONE (16:05)
--- NOTE | 2022-03-07 16:06 | Hospitalist Progress Note ---
Date of Service March 07, 2022 Assessment & Plan (1) Acute respiratory failure with hypoxia: Plan: Acute pulmonary edema + b/l pneumonia. May have had ARDS has he had very high HFNC requirements in the ICU and diffuse b/l infiltrates on imaging. No obvious PE on CTA Chest 03/02/22 although images were suboptimal. Marked improvement; down to 3 L of O2 today. Day #6 of IV abx. CXR from today reviewed. lasix 20mg po x 1. (2) Acute pulmonary edema: Plan: acute diastolic CHF - 03/02/22. s/p lasix with copious diuresis earlier in the stay. had echo 12/13/21 through [facility] (see scanned report) showing EF 60% with normal valve function. echo here with preserved EF. lasix 20mg po x 1. (3) Bilateral pneumonia: Plan: day #6 of IV abx therapy initially was on IV zosyn, then changed to IV rocephin/zithromax bronch cultures negative except yonny blood cx's negative today is day #5 zithromax - stop after today's dose day #6 rocephin - stop after 03/08's dose cont to wean FiO2 (4) Sepsis: Plan: resolved 2nd to pneumonia blood cx's negative finish abx course (5) S/P exploratory laparotomy: Plan: POD #7 - ex lap -- aborted attempt at aortobifemoral bypass. abscess found (Very small) on greater curvature of the stomach - culture negative however. will need to discuss with vascular length of abx course for this ex lap finding. (6) Hypokalemia: Plan: replaced resolved then low again today - replace, repeat BMP am (7) Hypomagnesemia: Plan: replaced resolved repeat mag level today wnl (8) Tachycardia: Plan: improved with resumption of his metoprolol succinate 25mg daily no a.fib, other dysrhythmia seen while here (9) CAD (coronary artery disease): Plan: Lexisc[facility] was negative for myocardial ischemia. Troponin negative here - no evidence of ACS. (10) COPD (chronic obstructive pulmonary disease): Plan: cont bronchodilators wheezing improved / resolved (11) HTN (hypertension): Plan: improved with resumption of amlodipine 5mg daily and metoprolol succinate 25mg daily (12) History of myocardial infarction: Plan: noted typically on statin, plavix, metoprolol all meds resumed (13) History of gastric ulcer: Plan: PPI (14) Aortic occlusion: Plan: s/p ex lap with aborted attempt at aortobifemoral bypass. (15) Abdominal distension: Plan: had expected postoperative ileus resolved passing flatus/stool tolerating diet (16) Hyponatremia: Plan: resolved (17) Epiglottic lesion: Plan: per CT neck dated 03/05/22 -- * "Mild enlargement of the adenoid tonsils with two subadjacent fluid attenuating foci within the right vallecula abutting the epiglottis. Additionally, there is asymmetric soft tissue thickening within the right vallecula measuring up to 1.3 cm. Correlation with direct visualization recommended." * "Indeterminate 1.2 cm lesion of the right parotid gland. Nonemergent follow-up ultrasound recommended." fortunately these findings are not compromising his swallow function; video swallow exam wnl. NEEDS ENT FOLLOW-UP [facility] AFTER DISCHARGE FOR DIRECT LARYNGOSCOPY, BIOPSY, ETC. (18) DVT prophylaxis: Plan: lovenox daily Plan PT/OT evals - rehab recommended but he is not agreeable to such cont to wean O2 cont supportive care Admission and Anticipated Discharge Date Admission Date: February 28, 2022 Subjective patient irritable during the visit feels he should be discharged today this is despite being on oxymask we had a lengthy discussion about candidacy for d/c - needs to be on lower amount of O2, needs to pass PT/OT evals (last therapy evals suggested acute rehab post-d/c), etc he was not open to rehab - stated he is going home at discharge eating / drinking have improved passing flatus/stool mild cough but denies dyspnea at rest tele overnight wnl Review of Systems Review of Systems: gen - no fevers cv - no chest pain, no orthopnea pulm - no dyspnea at rest GI - mild abd pain only; no N/V Physical Exam Physical Exam: gen - NAD, lying comfortably in bed; irritable today HENT - mouth with MMM, poor dentition neck - no JVD heart - RRR, s1 s2, no murmur lungs - still with b/l basilar dry rales about 1/3 to [address] back; no wheezes; no distress abd - distension resolved; BS+, nontender, soft ext - pulses both feet 1+ b/l, no edema skin - large vertical incision on abdominal wall with intact familia, minimal erythema around familia psych - irritable but oriented x 3 Results & Data Results & Data ([facility]) Vital Signs (Past 12 Hours) Vital Signs Temp Pulse Pulse Resp BP Pulse Ox O2 Del Method 03/07/22 15:54 37.0 C 102 H 18 157/80 H 96 Oxymask 03/07/22 15:54 103 H 03/07/22 08:00 Oxymask 03/07/22 12:54 85 18 98 Oxymask 03/07/22 10:53 36.7 C 101 H 20 158/87 H 97 Oxymask 03/07/22 07:34 92 H 03/07/22 07:02 91 H 18 99 Oxymask 03/07/22 06:16 36.7 C 93 H 18 154/82 H 954 H Oxymask O2 Flow Rate 03/07/22 15:54 3 03/07/22 15:54 03/07/22 08:00 4 03/07/22 12:54 4 03/07/22 10:53 4 03/07/22 07:34 03/07/22 07:02 4 03/07/22 06:16 4 Laboratory Results Laboratory Results - last 24 hr 03/07/22 03/07/22 05:34 05:34 WBC 11.03 H RBC 4.58 L Hgb 13.2 L Hct 38.8 L MCV 84.7 MCH 28.8 MCHC 34.0 RDW Std Deviation 44.1 RDW Coeff of Sondra 14.3 Plt Count 219 MPV 10.4 Immature Gran % (Auto) 0.8 Neut % (Auto) 76.8 Lymph % (Auto) 12.2 [place] % (Auto) 7.3 Eos % (Auto) 2.4 Baso % (Auto) 0.5 Neut # (Auto) 8.47 H Lymph # (Auto) 1.35 [place] # (Auto) 0.81 Eos # (Auto) 0.26 Baso # (Auto) 0.05 Immature Gran # (Auto) 0.09 H Sodium 138 Potassium 3.1 L Chloride 101 Carbon Dioxide 33 H Anion Gap 4 BUN 10 Creatinine 0.73 Est Cr Clr Drug Dosing 105.2 Est GFR ( Amer) 119.3 Est GFR (Non-Af Amer) 103.0 BUN/Creatinine Ratio 13.7 Glucose 102 H Calcium 8.3 L Magnesium 1.7 Diagnostic Findings Chest X-Ray 03/07/22 07:30 XR chest 2V PA/lateral HISTORY: b/l infiltrates, interval change COMPARISON: Chest 03/04/2022. FINDINGS: No pneumothorax. There are trace bilateral pleural effusions. The heart remains enlarged. There are low lung volumes. Diffuse interstitial thickening has improved. This favors resolving pulmonary edema. Bibasilar linear densities persist and may represent atelectasis or pneumonia. IMPRESSION: 1. Interval improvement in the pulmonary edema. 2. Small bilateral pleural effusions and bibasilar densities persist. This may represent atelectasis or pneumonia. ACT 112: Negative or not required by law. Electronically signed by: Enoch Santiago M.D. 03/07/2022 9:45 AM PG Care Time/CCT Total # of Minutes Spent Total Time Spent with Patient: Total time spent is greater than 50% in coordination of care (as documented) at patient's floor/unit and/or counseling patient: Coding Level of Care Code 09629 SUB INP/OBS CARE 2/35MIN Diagnoses Acute respiratory failure with hypoxia J96.01 Acute pulmonary edema J81.0 Bilateral pneumonia J18.9 Sepsis A41.9 S/P exploratory laparotomy Z98.890 Hypokalemia E87.6 Hypomagnesemia E83.42 Tachycardia R00.0 CAD (coronary artery disease) I25.10 COPD (chronic obstructive pulmonary disease) J44.9 HTN (hypertension) I10 History of myocardial infarction I25.2 History of gastric ulcer Z87.11 Aortic occlusion I70.0 Abdominal distension R14.0 Hyponatremia E87.1 Epiglottic lesion J38.7 DVT prophylaxis Z29.9
[2022-03-07] MEDS: ENOXAPARIN INJ 40 MG/0.4 ML SYR SQ SCH (18:50)
[2022-03-08] MEDS: ALBUT/IPRATROP 3MG/0.5MG NEB 3 ML VIAL NEB SCH ×4 (00:02→19:44)
[2022-03-08] MEDS: ATORVASTATIN 40 MG TAB PO SCH (08:09)
[2022-03-08] MEDS: METOPROLOL SUCC 25MG EXT REL TAB PO SCH (08:09)
[2022-03-08] MEDS: PANTOprazole 40 MG TAB PO SCH (08:10)
[2022-03-08] MEDS: amLODIPine BESYLATE 5 MG TAB PO SCH (08:10)
[2022-03-08] MEDS: CLOPIDOGREL BISULFATE 75 MG TAB PO SCH (08:10)
[2022-03-08] MEDS: NICOTINE 21 MG/24 HR TDSY TD SCH (08:12)
[2022-03-08 11:57] LABS: BUN Creatinine Ratio 12.3 (10-20); Calcium 8.7 mg/dl (8.5-10.1); Creatinine Clr Calc Pharmacy 94.6 ml/min; Est GFR (African American) 114.3 ml/min; Est GFR (Non-African American) 98.7 ml/min; Potassium 3.8 mmol/L (3.5-5.1)
[2022-03-08] MEDS: cefTRIAXone SODIUM 2,000 MG in DEXTROSE 5% 50 ML IV SCH (11:58)
--- NOTE | 2022-03-08 12:42 | Surgery Progress Note ---
Date of Service March 08, 2022 Assessment & Plan (1) S/P exploratory laparotomy: Plan: Pt with improved PO intake, but continues to require oxygen via oxymask d/t pneumonia. Wishes to go home. HR and BP improved today. Will require abx at discharge for the small abd abscesses. Will see in office in 2 weeks to reeval his surgical wound and discuss other surgical options. Admission and Anticipated Discharge Date Admission Date: February 28, 2022 Subjective 56 yo m POD # 8 after ex lap d/t aborted aortobifemoral bypass, seen in f/u today. Pt continues to have significant oxygen requirements, but states he wishes to go home. No other new complaints. Review of Systems Review of Systems: All systems reviewed & are unremarkable except as noted in HPI & below Physical Exam Constitutional: WD/WN, vitals as above + ill appearing Gastrointestinal (Abdomen): Inspection/Auscultation: + abdomen distended Percussion/Palpation: + abdomen tender and abdomen soft ventral incision C/D/I with familia, mildly tender. Psychiatric: Orientation: alert and oriented x 3 Results & Data ([facility]) Vital Signs (Past 12 Hours) Vital Signs Temp Pulse Pulse Resp BP Pulse Ox O2 Del Method 03/08/22 11:22 37.4 C 92 H 18 150/82 H 98 Oxymask 03/08/22 07:40 85 03/08/22 07:34 37.0 C 95 H 20 155/84 H 99 Nebulizer 03/08/22 07:21 86 18 97 Oxymask 03/08/22 03:12 36.6 C 87 18 150/81 H 97 Oxymask O2 Flow Rate 03/08/22 11:22 2 03/08/22 07:40 03/08/22 07:34 7 03/08/22 07:21 3 03/08/22 03:12 3
[2022-03-08] MEDS: ENOXAPARIN INJ 40 MG/0.4 ML SYR SQ SCH (17:42)
--- NOTE | 2022-03-08 18:45 | Hospitalist Progress Note ---
Date of Service March 08, 2022 Assessment & Plan (1) Acute respiratory failure with hypoxia: Plan: Acute pulmonary edema + b/l pneumonia. May have had ARDS has he had very high HFNC requirements in the ICU and diffuse b/l infiltrates on imaging. No obvious PE on CTA Chest 03/02/22 although images were suboptimal. Marked improvement; down to 3 L of O2 today. Day #6 of IV abx. CXR from today reviewed. lasix 20mg po x 1. (2) Acute pulmonary edema: Plan: acute diastolic CHF - 03/02/22. s/p lasix with copious diuresis earlier in the stay. had echo 12/13/21 through [facility] (see scanned report) showing EF 60% with normal valve function. echo here with preserved EF. lasix 20mg po x 1. (3) Bilateral pneumonia: Plan: day #6 of IV abx therapy initially was on IV zosyn, then changed to IV rocephin/zithromax bronch cultures negative except yonny blood cx's negative today is day #5 zithromax - stop after today's dose day #6 rocephin - stop after 03/08's dose cont to wean FiO2 (4) Sepsis: Plan: resolved 2nd to pneumonia blood cx's negative finish abx course (5) S/P exploratory laparotomy: Plan: POD #7 - ex lap -- aborted attempt at aortobifemoral bypass. abscess found (Very small) on greater curvature of the stomach - culture negative however. will need to discuss with vascular length of abx course for this ex lap finding. (6) Hypokalemia: Plan: replaced resolved then low again today - replace, repeat BMP am (7) Hypomagnesemia: Plan: replaced resolved repeat mag level today wnl (8) Tachycardia: Plan: improved with resumption of his metoprolol succinate 25mg daily no a.fib, other dysrhythmia seen while here (9) CAD (coronary artery disease): Plan: Lexisc[facility]see [facility] was negative for myocardial ischemia. Troponin negative here - no evidence of ACS. (10) COPD (chronic obstructive pulmonary disease): Plan: cont bronchodilators wheezing improved / resolved (11) HTN (hypertension): Plan: improved with resumption of amlodipine 5mg daily and metoprolol succinate 25mg daily (12) History of myocardial infarction: Plan: noted typically on statin, plavix, metoprolol all meds resumed (13) History of gastric ulcer: Plan: PPI (14) Aortic occlusion: Plan: s/p ex lap with aborted attempt at aortobifemoral bypass. (15) Abdominal distension: Plan: had expected postoperative ileus resolved passing flatus/stool tolerating diet (16) Hyponatremia: Plan: resolved (17) Epiglottic lesion: Plan: per CT neck dated 03/05/22 -- * "Mild enlargement of the adenoid tonsils with two subadjacent fluid attenuating foci within the right vallecula abutting the epiglottis. Additionally, there is asymmetric soft tissue thickening within the right vallecula measuring up to 1.3 cm. Correlation with direct visualization recommended." * "Indeterminate 1.2 cm lesion of the right parotid gland. Nonemergent follow-up ultrasound recommended." fortunately these findings are not compromising his swallow function; video swallow exam wnl. NEEDS ENT FOLLOW-UP [facility] AFTER DISCHARGE FOR DIRECT LARYNGOSCOPY, BIOPSY, ETC. (18) DVT prophylaxis: Plan: lovenox daily Plan PT/OT evals - rehab recommended but he is not agreeable to such cont to wean O2 cont supportive care Admission and Anticipated Discharge Date Admission Date: February 28, 2022 Subjective 56 yo m POD # 9 after ex lap d/t aborted aortobifemoral bypass, No other new complaints. He would like to go home, however patient requires oxygen after 2 days walking test, pending oxygen delivery patient can be discharged home to Physical Exam Physical Exam: gen - NAD, lying comfortably in bed; irritable today HENT - mouth with MMM, poor dentition neck - no JVD heart - RRR, s1 s2, no murmur lungs - still with b/l basilar dry rales about 1/3 to 1/[address] up back; no wheezes; no distress abd - distension resolved; BS+, nontender, soft ext - pulses both feet 1+ b/l, no edema skin - large vertical incision on abdominal wall with intact familia, minimal erythema around familia psych - irritable but oriented x 3 Constitutional: WD/WN, vitals as above + ill appearing ENMT: Mallampati Class: I Neck: normal visual inspection Respiratory: normal respiratory effort; no respiratory distress Auscultation: lungs clear to auscultation bilaterally and + crackles (and coarse, wet cough noted) Cardiovascular: RRR, no murmur, no edema Rate/Rhythm: regular rate, regular rhythm and + tachycardic Vessels: femoral pulses present; + posterior tibial pulses abnormal and + dorsalis pedis pulses abnormal Extremities: + abnormal capillary refill Gastrointestinal (Abdomen): Inspection/Auscultation: abdomen normal to inspection and + abdomen distended Percussion/Palpation: + abdomen tender and abdomen soft Musculoskeletal: no cyanosis or clubbing, extremities motor strength 5/5 Skin: + incision (C/D/I with familia.) Neurologic: CN's II-XI intact bilaterally and moves all extremities Psychiatric: Orientation: alert and oriented x 3 Results & Data Results & Data ([facility]) Vital Signs (Past 12 Hours) Vital Signs Temp Pulse Pulse Pulse Pulse Pulse Pulse 03/08/22 18:20 110 H 115 H 105 H 115 H 03/08/22 08:12 03/08/22 16:05 96 H 03/08/22 16:00 36.7 C 95 H 03/08/22 13:18 03/08/22 12:15 81 03/08/22 11:22 37.4 C 92 H 03/08/22 07:40 85 03/08/22 07:34 37.0 C 95 H 03/08/22 07:21 86 Resp Resp Resp Resp Resp BP Pulse Ox 03/08/22 18:20 22 22 20 22 03/08/22 08:12 03/08/22 16:05 03/08/22 16:00 18 169/92 H 96 03/08/22 13:18 98 03/08/22 12:15 18 97 03/08/22 11:22 18 150/82 H 98 03/08/22 07:40 03/08/22 07:34 20 155/84 H 99 03/08/22 07:21 18 97 Pulse Ox Pulse Ox Pulse Ox Pulse Ox O2 Del Method O2 Flow Rate O2 Flow Rate 03/08/22 18:20 96 98 97 85 L 2 03/08/22 08:12 Nasal Cannula, Oxymask 3 03/08/22 16:05 03/08/22 16:00 Oxymask 2 03/08/22 13:18 2 01/25/23 12:15 Oxymask 2 03/08/22 11:22 Oxymask 2 03/08/22 07:40 03/08/22 07:34 Nebulizer 7 03/08/22 07:21 Oxymask 3 O2 Flow Rate O2 Flow Rate 03/08/22 18:20 2 2 03/08/22 08:12 03/08/22 16:05 03/08/22 16:00 03/08/22 13:18 03/08/22 12:15 03/08/22 11:22 03/08/22 07:40 03/08/22 07:34 03/08/22 07:21 PG Care Time/CCT Total # of Minutes Spent Total Time Spent with Patient: Total time spent is greater than 50% in coordination of care (as documented) at patient's floor/unit and/or counseling patient: Coding Level of Care Code 84046 SUB INP/OBS CARE 2/35MIN Diagnoses Acute respiratory failure with hypoxia J96.01 Acute pulmonary edema J81.0 Bilateral pneumonia J18.9 Sepsis A41.9 S/P exploratory laparotomy Z98.890 Hypokalemia E87.6 Hypomagnesemia E83.42 Tachycardia R00.0 CAD (coronary artery disease) I25.10 COPD (chronic obstructive pulmonary disease) J44.9 HTN (hypertension) I10 History of myocardial infarction I25.2 History of gastric ulcer Z87.11 Aortic occlusion I70.0 Abdominal distension R14.0 Hyponatremia E87.1 Epiglottic lesion J38.7 DVT prophylaxis Z29.9
[2022-03-09] MEDS: ALBUT/IPRATROP 3MG/0.5MG NEB 3 ML VIAL NEB SCH ×3 (01:23→12:51)
[2022-03-09 06:58] LABS: BUN Creatinine Ratio 16.3 (10-20); Calcium 8.8 mg/dl (8.5-10.1); Creatinine Clr Calc Pharmacy 95.8 ml/min; Est GFR (African American) 114.9 ml/min; Est GFR (Non-African American) 99.2 ml/min; Potassium 3.6 mmol/L (3.5-5.1)
[2022-03-09] MEDS: METOPROLOL SUCC 25MG EXT REL TAB PO SCH (09:37)
[2022-03-09] MEDS: PANTOprazole 40 MG TAB PO SCH (09:37)
[2022-03-09] MEDS: NICOTINE 21 MG/24 HR TDSY TD SCH (09:37)
[2022-03-09] MEDS: CLOPIDOGREL BISULFATE 75 MG TAB PO SCH (09:38)
[2022-03-09] MEDS: ATORVASTATIN 40 MG TAB PO SCH (09:38)
[2022-03-09] MEDS: amLODIPine BESYLATE 5 MG TAB PO SCH (10:12)
--- NOTE | 2022-03-09 14:25 | Surgery Progress Note ---
Date of Service March 09, 2022 Assessment & Plan (1) S/P exploratory laparotomy: Plan: Doing well. Can d/c when determined by primary service due to his medical problems. Admission and Anticipated Discharge Date Admission Date: February 28, 2022 Subjective Patient doing better with breathing. O2 requirements are decreasing. Tolerating diet Physical Exam Constitutional: WD/WN, vitals as above Cardiovascular: Extremities: normal capillary refill Gastrointestinal (Abdomen): Inspection/Auscultation: + abdomen distended Percussion/Palpation: + abdomen tender (minimal) and abdomen soft Skin: + incision (dry and intact. good approximation.) Results & Data ([facility]) Vital Signs (Past 12 Hours) Vital Signs Temp Pulse Resp BP BP Pulse Ox O2 Del Method 03/09/22 12:53 102 H 98 Oxymask 03/09/22 12:14 36.8 C 102 H 18 163/95 H 97 Oxymask 03/09/22 09:00 36.6 C 100 H 18 148/85 H 97 Oxymask 03/09/22 07:04 81 18 98 Oxymask 03/09/22 04:04 36.6 C 93 H 18 162/88 H 97 Oxymask O2 Flow Rate 03/09/22 12:53 2 03/09/22 12:14 03/09/22 09:00 2 03/09/22 07:04 2 03/09/22 04:04 2
--- NOTE | 2022-03-09 19:12 | Discharge Summary ---
Date of Service March 09, 2022 Admission HPI Per Admitting Provider Mr. Saha is a middle-aged male who presents to Dr. Pennington's vascular surgery clinic today as a new patient in consultation for aortoiliac occlusive disease. Patient states that he has been aware of significant arterial disease since 2018, at which time he underwent angiography with FRAMEMAN somewhere in his right lower extremity. Records of this are not available. He states he was able to function after this until earlier this year when he began to notice worsening claudication symptoms particularly in his hips and thighs, as well as numbness. He states at this point on an incline he is only able to walk about 75 feet, and is able to walk further on a flat surface. He finds that this is extremely limiting for his activity level. He has seen his looseleaf binder coverer who had him undergo angiography, which was unsuccessful in crossing the lesions. He was noted to have complete occlusion of his distal aorta and bilateral iliac arteries, with distal reconstitution. Patient denies rest pain in his feet and toes, as well as any ulcerations or nonhealing wounds on his feet. He denies fever, recent illness, headache, dizziness, chest pain, shortness of breath, abdominal pain, nausea, vomiting, other complaints. Principal Diagnosis Pneumonia, CHF exacerbation, pulmonary edema, acute hypoxic respiratory failure, peripheral arterial disease, tobacco abuse Discharge Exam gen - NAD, lying comfortably in bed; irritable today HENT - mouth with MMM, poor dentition neck - no JVD heart - RRR, s1 s2, no murmur lungs - still with b/l basilar dry rales about 1/3 to [address] back; no wheezes; no distress abd - distension resolved; BS+, nontender, soft ext - pulses both feet 1+ b/l, no edema skin - large vertical incision on abdominal wall with intact familia, minimal erythema around familia psych - irritable but oriented x 3 Constitutional WD/WN, vitals as above + ill appearing ENMT Mallampati Class: I Neck normal visual inspection Respiratory normal respiratory effort; no respiratory distress Auscultation: lungs clear to auscultation bilaterally and + crackles (and coarse, wet cough noted) Cardiovascular RRR, no murmur, no edema Rate/Rhythm: regular rate, regular rhythm and + tachycardic Vessels: femoral pulses present; + posterior tibial pulses abnormal and + dorsalis pedis pulses abnormal Extremities: + abnormal capillary refill Gastrointestinal (Abdomen) Inspection/Auscultation: abdomen normal to inspection and + abdomen distended Percussion/Palpation: + abdomen tender and abdomen soft Musculoskeletal no cyanosis or clubbing, extremities motor strength 5/5 Skin + incision (C/D/I with familia.) Neurologic CN's II-XI intact bilaterally and moves all extremities Psychiatric Orientation: alert and oriented x 3 Discharge Data Allergies Allergy/AdvReac Type Severity Reaction Status Date / Time No Known Allergies Allergy Verified 02/28/22 06:33 Consultations 03/02/22 09:10 Consult Hospitalist Routine Procedures Performed Operation Date: 02/28/22 08:00 Actual Procedures p Exploratory Laparotomy(Not Applicable) - Joey Pennington MD Ordered Studies 03/02/22 09:16 CT angio chest PE protocol Urgent 03/02/22 13:58 CT abd pelvis IV con only Urgent 03/05/22 07:54 CTA neck with con [CT angio neck with con] Routine 03/06/22 13:15 FL video swallow Routine Hospital Course (1) Acute respiratory failure with hypoxia: Acute pulmonary edema + b/l pneumonia. May have had ARDS has he had very high HFNC requirements in the ICU and diffuse b/l infiltrates on imaging. No obvious PE on CTA Chest 03/02/22 although images were suboptimal. Marked improvement; down to 3 liters Patient received 7-day course started on antibiotic, patient adamant he wanted go home still hypoxic, patient discharged on home oxygen, patient advised to stop smoking, the patient was informed he should adjust oxygen delivery for the sats of 90% and if it is doable to wean her self off oxygen, recommend to follow-up pulmonology (2) Acute pulmonary edema: acute diastolic CHF - 03/02/22. s/p lasix with copious diuresis e had echo 12/13/21 through [facility] (see scanned report) showing EF 60% with normal valve function. echo here with preserved EF. Patient discharged on Lasix 20 mg daily (3) Bilateral pneumonia: day #6 of IV abx therapy initially was on IV zosyn, then changed to IV rocephin/zithromax bronch cultures negative except yonny blood cx's negative today is day #5 zithromax - stop after today's dose day #6 rocephin - stop after 03/08's dose cont to wean FiO2 (4) Sepsis: resolved 2nd to pneumonia blood cx's negative finish abx course (5) S/P exploratory laparotomy: - s/p ex lap -- aborted attempt at aortobifemoral bypass. abscess found (Very small) on greater curvature of the stomach - culture negative however. Message left for surgery regarding the course of antibiotic treatment awaiting for response, patient discharged on Augmentin (6) Hypokalemia: replaced resolved then low again today - replace, repeat BMP am (7) Hypomagnesemia: replaced resolved repeat mag level today wnl (8) Tachycardia: improved with resumption of his metoprolol succinate 25mg daily no a.fib, other dysrhythmia seen while here (9) CAD (coronary artery disease): Lexiscan nuclear stress test 12/2021 via [facility] (see scanned documents) was negative for myocardial ischemia. Troponin negative here - no evidence of ACS. (10) COPD (chronic obstructive pulmonary disease): cont bronchodilators wheezing improved / resolved (11) HTN (hypertension): improved with resumption of amlodipine 5mg daily and metoprolol succinate 25mg daily (12) History of myocardial infarction: noted typically on statin, plavix, metoprolol all meds resumed (13) History of gastric ulcer: PPI (14) Aortic occlusion: s/p ex lap with aborted attempt at aortobifemoral bypass. (15) Abdominal distension: had expected postoperative ileus resolved passing flatus/stool tolerating diet (16) Hyponatremia: resolved (17) Epiglottic lesion: per CT neck dated 03/05/22 -- * "Mild enlargement of the adenoid tonsils with two subadjacent fluid attenuating foci within the right vallecula abutting the epiglottis. Additionally, there is asymmetric soft tissue thickening within the right vallecula measuring up to 1.3 cm. Correlation with direct visualization recommended." * "Indeterminate 1.2 cm lesion of the right parotid gland. Nonemergent follow-up ultrasound recommended." fortunately these findings are not compromising his swallow function; video swallow exam wnl. NEEDS ENT FOLLOW-UP ALCIRA AFTER DISCHARGE FOR DIRECT LARYNGOSCOPY, BIOPSY, ETC. (18) DVT prophylaxis: lovenox daily Plan PT/OT evals - rehab recommended but he is not agreeable to such cont to wean O2 cont supportive care Total Time Total Time Spent Total Time Spent (In Minutes): 45 min Discharge Plan Discharge Items Patient Disposition: Home - Self-Care Reason For Visit: Infrarenal Aortic Occlusion Discharge Diagnosis: Pulmonary edema , Peripheral vascular disease, Pneumonia ,Sepsis Activity: Resume your previous activity Lifting: Gradually increase as tolerated Sexual Activity: When tolerated Driving/Machine Use: No limitations Weightbearing: Full weightbearing Non-emergency contact: Primary Care Provider and Surgeon Call non-emergency contact if: you have any medication questions Follow-up/Referrals: Joey Pennington MD [Physician] - PCP,YOANNA [Physician] - Diet: Heart Healthy Addtl Attending Provider Instructions: Follow up with Ear Nose and throat regarding the mass on the epiglottis as per recommendation of your primary care doctor Addtl Chief Cardiopulmonary Technologist Provider Instructions: your main vessels have been clogged because of smoking , you must STOP SMOKING. You need surgery please follow with Dr Pennington , surgeon in two weeks to schedule you for surgery. You are discharged on Oxygen , Please buy a Pulse oximetry from one the pharmacy you should monitor your oxygen delivery for saturation of 90 percent Your blood pressure is running high metoprolol has been discontinued and you are started on Carvedilol please check your blood pressure on daily basis if it is high or low call your primary care doctor or 911 Pending Studies at Discharge: No Stand-Alone Forms: My [facility] [employer], Smoking Cessation Medications and DC Order Prescriptions: New amoxicillin-pot clavulanate [Augmentin] 500-125 mg tablet 1 tab PO Q12H Qty: 20 0RF carvedilol 12.5 mg tablet 12.5 mg PO BID Qty: 60 0RF Rx Instructions: must administer with a meal/food furosemide [Lasix] 20 mg tablet 20 mg PO DAILY Qty: 60 0RF Continued atorvastatin 80 mg Tablet 80 mg PO PM clopidogrel 75 mg Tablet 75 mg PO QAM amlodipine 10 mg Tablet 10 mg PO QAM pantoprazole 40 mg Tablet,Delayed Release (Dr/Ec) 40 mg PO QAM nitroglycerin [Nitrostat] 0.4 mg Tablet, Sublingual 0.4 mg sublingual UD PRN (Reason: Chest Pain) ezetimibe 10 mg Tablet 10 mg PO DAILY Discontinued metoprolol tartrate 25 mg Tablet 25 mg PO BID potassium chloride 20 mEq Tablet Extended Release 20 meq PO QPM Discharge Orders: Discharge Order (Routine); Ordered 03/09/22 Ordered By: Donte Cavazos Admission Data Admit Date/Time: 02/28/22 09:57 Attending Provider: Donte Cavazos Admit Provider: Joey Pennington Primary Care Provider: Neelam Restrepo Other Providers: Pramod Delgadillo ; Maya Mata ; Martin Miranda ; Richie Dodd ; Brandon Washington ; Timothy Yousesf ; Orlando Evans ; Marce Arellano ; Miladis Jackson ; Benjamin Carr ; Kodak Paul ; Elisha White ; Finn Olson ; Scott Chand ; Olga Soliz ; Willa Benton ; Tari Berg ; Daniel Weston ; Joe Soto ; Felisa Carson ; Maya Long ; Gaby Juarez ; Rodrigue Barger ; Martin Redding ; Angie Ceja ; Matt Fontaine ; Eriberto Roque ; Angela Espitia ; Alec Mcnamara ; Kathy Weldon ; Ian Rodriguez ; Diana Gant ; Leonard Arzola ; Madonna Medellin ; Denis Shields ; Donte Cavazos Other Interventions: Discharge Summary Assessment (RN) Last Done: 03/09/22 16:28 Coding Level of Care Code HOSP INP/OBS DISCH >30 MIN Diagnoses Acute respiratory failure with hypoxia J96.01 Acute pulmonary edema J81.0 Bilateral pneumonia J18.9 Sepsis A41.9 S/P exploratory laparotomy Z98.890 Hypokalemia E87.6 Hypomagnesemia E83.42 Tachycardia R00.0 CAD (coronary artery disease) I25.10 COPD (chronic obstructive pulmonary disease) J44.9 HTN (hypertension) I10 History of myocardial infarction I25.2 History of gastric ulcer Z87.11 Aortic occlusion I70.0 Abdominal distension R14.0 Hyponatremia E87.1 Epiglottic lesion J38.7 DVT prophylaxis Z29.9
--- NOTE | 2022-03-13 07:52 | Operative Report ---
Post Operative Report Pre & Post Diagnosis Operation Date: 02/28/22 08:00 Pre-Op Diagnosis: (1) Terminal aortic occlusion Post-Op Diagnosis: (1) Terminal aortic occlusion I identified the patient and participated in the time-out.: Yes Procedure Operation Date: 02/28/22 08:00 Actual Procedures p Exploratory Laparotomy(Not Applicable) - Joey Pennington MD Surgeon Joey Pennington MD Electromechanical Technologist MD Juliocesar L.Minarchick,PAC Estimated Blood Loss 20 Findings Consistent with Post-Op Diagnosis Specimens Cultures sent Anesthesia Type General Complications none Disposition Accompanied Patient To Recovery: No Disposition: Recovery Room Indications This is a 56-year-old gentleman with a aortic occlusion below the renal arteries. Aortobifemoral bypass recommended. I have discussed the risks options and benefits of the procedure with the patient. The patient understands the risks options and benefits and agrees to the procedure. Description of Procedure The patient was taken to the operating room placed supine position. After the abdomen was prepped and draped in a sterile manner the patient was identified and a timeout was performed. Midline incision was then made from the xiphoid down to just below the umbilicus. The fascia was divided in the midline. Exploration of abdominal cavity revealed a distended small bowel. The stomach was seen. He did have a perforated ulcer in the past. Significant adhesions were present. These were taken down on both sides of the incision. Once this was done we exposed the stomach which showed 2 chickpea size white masses with sutures in the center. The put sutures appear to be silk sutures. 1 of these masses was draining what appeared to be a white purulent drainage. The drainage was sent for culture and sensitivities. Being that these may have been infected stitch granulomas we elected to abandon the aortobifemoral bypass. The abdomen was copiously irrigated with saline solution. We then closed the other with a running PDS double-stranded suture, 3-0 Vicryl subtendinous layer, and familia for the skin. Sterile dressings were applied to the wound. The patient left the operation room in satisfactory condition and tolerated the procedure well. All needle and sponge counts were correct at the end of the procedure. I attest to the content of the Intraoperative Record and any orders documented therein. Any exceptions are noted below.
== END 2022-03-09 17:45 | disposition home or self-care (01) | DRG 987 ==
LOC: ASU 05:51 → SUATTDRO 09:57 → PACUINP 09:57 → 3N 17:06 → 1E 03-02 12:13 → 2N 03-06 19:33

== ENCOUNTER 2022-08-22 05:45 | Inpatient (IN) ==
--- NOTE | 2022-06-02 09:19 | Anesthesiology Consultation ---
Date of Service June 02, 2022 Assessment & Plan (1) Encounter for pre-operative examination: - COVID screening: Per assessment on 05/25: No known COVID-19 positive contacts or current COVID-19 related symptoms. Travel screen negative. At surgeon discretion if preop Covid testing being done. -Cardiology office visit (01/24/22): "Coronary artery disease.. ANDREY on 09/21/2013 and distal LAD 2 stents.. ANDREY on 03/20/2017.. Peripheral arterial disease with worsening claudication S/P TABLE GAMES FLOOR SUPERVISOR/stent to left common iliac artery on 04/18/17 and TABLE G[employer] FLOOR SUPERVISOR to right common iliac and external iliac arteries on 11/23/17. Balloon angioplasty to the ostium of the left superficial femoral artery 02-22-18. Now with occluded distal abdominal aorta and bilateral iliacs, being evaluated for aortic bifemoral bypass surgery.. Considered at alow to intermediate cardiac riskfor aortobifemoral bypass surgery" - S/P Aorta bifemoral bypass attempt converted to exploratory lap (abdominal exploration revealed abdominal distension, purulent drainage/abscess) 02/28/22: Grade 1 view, MAC#3, ETT 7.5 at [facility] - Pulmonary/[facility] (04/27/22): "The patient's lower extremity bypass surgery for his PVD is necessary. His risk of pulmonary complication, specifically prolonged ventilation or failed extubation, is in the order of 10% based on published pulmonary risk assessment score. This risk is not felt to be prohibitive for a pulmonary stand point but the risk will need to be accepted by both the patient and the surgeon in order for the surgery to proceed.. February 2022 CT chest prior to his aborted surgery personally reviewed with small bilateral lung nodules that have not changed since 2018. I am advising a return visit in [address] chest for lung nodule followup/lung cancer screening, oximetry, and repeat CPFT's" - S/P EGD (05/16/22): "Patient re-examined in procedure room. Bottom middle teeth. Extremely loose. Patient unwilling to have tooth removed prior to procedure. Anesthesia in agreement to not do procedure with the teeth as loose as they are. Decision made to cancel it. Case cancelled*" > Patient following with [facility]. Pt denies any current loose teeth/abscess/infections. Two front teeth have been removed (05/23/22). Other teeth are in poor condition "but are not loose" at this time per patient/PAT RN phone interview. - Patient acceptable risk for given surgery pending evaluation AM DOS. Chart Review Chart Review: Patient NOT seen in Pre Admission Testing History Surgery Operation Date: 06/14/22 07:30 Proposed Procedures p Axillary-Bifemoral Bypass Graft - Joey Pennington MD Height/Weight Height: 5 ft 6 in Weight: 69.853 kg Allergies Allergy/AdvReac Type Severity Reaction Status Date / Time No Known Allergies Allergy Verified 05/25/22 12:18 Medications Home Medications Medication Instructions Recorded Confirmed Last Taken amlodipine 10 mg tablet 10 mg PO QAM 02/13/22 05/25/22 05/14/22 atorvastatin 80 mg tablet 80 mg PO PM 02/13/22 05/25/22 05/15/22 clopidogrel 75 mg tablet 75 mg PO QAM 02/13/22 05/25/22 05/16/22 07:00 pantoprazole 40 mg tablet,delayed 40 mg PO QAM 02/13/22 05/25/22 05/16/22 07:00 release ezetimibe 10 mg tablet 10 mg PO QAM 02/28/22 05/25/22 05/15/22 nitroglycerin 0.4 mg sublingual 0.4 mg sublingual UD PRN Chest Pain 02/28/22 05/25/22 Unknown tablet (Nitrostat) carvedilol 12.5 mg tablet 12.5 mg PO BID #60 tabs 03/09/22 05/25/22 05/16/22 07:00 furosemide 20 mg tablet (Lasix) 20 mg PO QAM 05/12/22 05/25/22 05/15/22 potassium chloride 20 mEq 20 meq PO QPM 05/25/22 05/25/22 Unknown tablet,extended release Past Medical History Medical History Bilateral pneumonia + pulmonary edema 02/2022 > f/u CXR 04/06/22 without evidence of focal consolidation CAD (coronary artery disease) 2013 > 1 stent 2017 ([facility]) > [address] Morin COPD (chronic obstructive pulmonary disease) "Stable" History of depression History of gastric ulcer 2012 History of GI bleed 2012 (ASA/gastric ulcer) History of myocardial infarction 2013 HLD (hyperlipidemia) HTN (hypertension) PAD (peripheral artery disease) severe Poor oral hygiene Following with [facility] Pt denies any abscess or infections currently, the front 2 teeth have been removed (05/23/22). Other teeth are in poor condition but are not loose at this time. Pulmonary nodules Stable since 2018, [facility] monitoring Sepsis 02/2022 (2/2 PNA), treated at [facility] > abx, blood cultures negative per discharge summary Past Family History Family History Other No family history of adverse response to anesthesia Past Surgical History Surgical History History of angioplasty of peripheral vessel bilateral legs History of cardiac catheterization 2013 > 1 stent 2017 ([facility] [place]) > 2 stents History of esophagogastroduodenoscopy (EGD) History of laparotomy x2 Aorta bifemoral bypass attempt converted to exploratory lap (abdominal exploration revealed abdominal distension, purulent drainage/abscess) 02/28/22: Grade 1 view, MAC#3, ETT 7.5 at [facility] History of revascularization procedure of lower extremity stents to BLLE (pt reports multiple procedures to open up his arteries in bilateral legs) S/P exploratory laparotomy 2012 [facility] Maddox) Social History Smoking Status: Current every day smoker tobacco type: cigarettes Smoking cigarettes per day: 1 ppd (advised) Do You Dip or Chew Tobacco: No Hx Alcohol Use: No Hx Substance Use: No substance use type: does not use Lab Results Anesthesia Preop Results Results Anesthesia Widget: WBC 12.98 K/ul (4.8-10.8) H 05/10/22 Hgb 16.7 g/dl (14.0-18.0) 05/10/22 Hct 49.0 % (42.0-52.0) 05/10/22 Plt 264 K/uL (130-400) 05/10/22 Na 138 mmol/L (136-145) 05/10/22 K 3.4 mmol/L (3.5-5.1) L 05/10/22 Cl 102 mmol/L (98-107) 05/10/22 CO2 28 mmol/L (21-32) 05/10/22 BUN 15 mg/dl (6-23) 05/10/22 Creat 1.07 mg/dl (0.6-1.4) 05/10/22 Glucose Level 121 mg/dl (70-99(Fasting)) H 05/10/22 PT 10.1 Seconds (9.0-12.0) 05/10/22 PTT 26.7 Seconds (21.0-31.0) 05/10/22 INR 0.9 (0.9-1.1) 05/10/22 Blood Type O Positive 05/10/22 Antibody Screen NEGATIVE 05/10/22 Testing Electrocardiogram Date: 03/02/22 ST at 108bpm. Anteroseptal infarct. EKG done in setting of sepsis/PNA. Echo performed 03/02/22* Chest X-Ray Date: 04/06/22 Hyperventilatory changes in the lungs without evidence of focal consolidation at this time. Echocardiogram Date: 03/02/22 EF 55-60%. No definite RWMA. Mild cLVH. No significant valvular disease. Sinus tachycardia. Stress Test Date: 12/13/21 Type: nuclear Lexiscan stress ECG was inconclusive for myocardial ischemia. No evidence of myocardial ischemia or infarction. LVEF 56%. Other Testing 24 Hour Holter monitor (09/19/21) Rare PAC. Frequent PVCs. No SVT. Sinus tachycardia. No bradycardia, pauses greater than 2 seconds, or high-grade AV block. Nondiagnostic for symptom correlation. Carotid duplex (09/29/21) No hemodynamically significant stenosis seen within either carotid bifurcation region or either proximal ICA. Abdominal aortography (12/13/21) Known right common iliac artery, external iliac artery chronic occlusion constriction of the distal right external iliac artery. Left mid common iliac artery chronic occlusion. Noted to have abdominal aorta 100% chronic occlusion just after the origin of the bilateral renal arteries. Right renal artery has ostial 90% stenosis. Patent left renal artery noted. Recommendation: Recommend to see vascular surgery for evaluation of abdominal aorta occlusion and also iliac artery occlusions.
--- NOTE | 2022-08-21 16:13 | History & Physical Report ---
Date of Service August 21, 2022 Assessment & Plan (1) Aortic occlusion: Plan: Patient is admitted for a left axillobifemoral bypass. I have discussed the risks options and benefits of the procedure with the patient. The patient understands the risks options and benefits and agrees to the procedure. History of Present Illness Chief Complaint: Severe claudication bilateral lower extremities Primary Care Provider: Neelam Restrepo PA-C Mr. Saha is a middle-aged male who presents for aortoiliac occlusive disease. Patient states that he has been aware of significant arterial disease since 2018, at which time he underwent angiography with [employer] somewhere in his right lower extremity. Records of this are not available. He states he was able to function after this until earlier this year when he began to notice worsening claudication symptoms particularly in his hips and thighs, as well as numbness. He states at this point on an incline he is only able to walk about 75 feet, and is able to walk further on a flat surface. He finds that this is extremely limiting for his activity level. He has seen his iron pourer who had him undergo angiography, which was unsuccessful in crossing the lesions. He was noted to have complete occlusion of his distal aorta and bilateral iliac arteries, with distal reconstitution. Patient denies rest pain in his feet and toes, as well as any ulcerations or nonhealing wounds on his feet.He underwent and ex lap for a planned AF2 but was found to have significant adhesions and areas on the stomach wall which appeared to be purulent. The procedure was abandoned at that time due to the possibility of infection. He is now admitted for an Ax bifem bypass. He denies fever, recent illness, headache, dizziness, chest pain, shortness of breath, abdominal pain, nausea, vomiting, other complaints. Allergies Allergy/AdvReac Type Severity Reaction Status Date / Time No Known Allergies Allergy Verified 06/12/22 15:08 Home Medications Medication Instructions Recorded Confirmed Type amlodipine 10 mg tablet 10 mg PO QAM 02/13/22 08/10/22 History atorvastatin 80 mg tablet 80 mg PO PM 02/13/22 08/10/22 History clopidogrel 75 mg tablet 75 mg PO QAM 02/13/22 08/10/22 History pantoprazole 40 mg tablet,delayed 40 mg PO QAM 02/13/22 08/10/22 History release ezetimibe 10 mg tablet 10 mg PO QAM 02/28/22 08/10/22 History nitroglycerin 0.4 mg sublingual 0.4 mg sublingual UD PRN Chest Pain 02/28/22 08/10/22 History tablet (Nitrostat) carvedilol 12.5 mg tablet 12.5 mg PO BID #60 tabs 03/09/22 08/10/22 Rx furosemide 20 mg tablet (Lasix) 20 mg PO QAM 05/12/22 08/10/22 History potassium chloride 20 mEq 20 meq PO QPM 05/25/22 08/10/22 History tablet,extended release Past Med/Surg History Medical History Bilateral pneumonia + pulmonary edema 02/2022 > f/u CXR 04/06/22 without evidence of focal consolidation CAD (coronary artery disease) 2013 > 1 stent 2017 ([facility]) > [address] Morin COPD (chronic obstructive pulmonary disease) "Stable" History of depression History of gastric ulcer 2012 History of GI bleed 2012 (ASA/gastric ulcer) History of myocardial infarction 2014 HLD (hyperlipidemia) HTN (hypertension) PAD (peripheral artery disease) severe Poor oral hygiene Following with [facility] Pt denies any abscess or infections currently, the front 2 teeth have been removed (05/23/22). Other teeth are in poor condition but are not loose at this time. Pulmonary nodules Stable since 2018, [facility] monitoring Sepsis 02/2022 (2/2 PNA), treated at [facility] > abx, blood cultures negative per discharge summary Surgical History History of angioplasty of peripheral vessel bilateral legs History of cardiac catheterization 2013 > 1 stent 2017 ([facility]) > 2 stents 12/2021, ph [facility] no stents History of esophagogastroduodenoscopy (EGD) History of laparotomy x2 Aorta bifemoral bypass attempt converted to exploratory lap (abdominal exploration revealed abdominal distension, purulent drainage/abscess) 02/28/22: Grade 1 view, MAC#3, ETT 7.5 at [facility] History of revascularization procedure of lower extremity stents to BLLE (pt reports multiple procedures to open up his arteries in bilateral legs) S/P exploratory laparotomy 2013 ulcer perforation with repair at [facility] (Dr Maddox) Family History Other No family history of adverse response to anesthesia Social History Smoking Status: Current every day smoker Cigarettes Per Day: 20; Second Hand Exposure: No; Do You Dip or Chew Tobacco: No; Tobacco Cessation Education Requested by Patient: No Hx Alcohol Use: No Hx Substance Use: No Preferred Language: Senegalese Communication Ability: Effective Credit Verification Clerk Required: No Beliefs That Will Affect Care: None Current Living Situation: Alone Other Information That Helps Us Care for You: No Feels Safe at Home: Yes Safety Concerns: Feels Safe At This Time Assistive Devices: Glasses Review of Systems All systems reviewed & are unremarkable except as noted in HPI & below Physical Exam Physical Exam: Constitutional: In general patient i s a healthy-appear ing well-nourished well-developed mi ddle-aged male no distress. Is aler t and oriented wit hout any focal def icits. His head i s normocephalic an d atraumatic. His carotids do not d emonstrate a bruit . His heart is re gular, his lungs a re decreased but c lear with coarse b reath sounds. His abdomen is protub erant due to body habitus, but is fi rm and nontender. His brachial and radial pulses are +3. His femoral p ulses are nonpalpa ble, his lower ext remity distal puls es are also nonpal pable. He has cap illary refill to t he toes at 5 to 6 seconds, with cont inued hair growth on the dorsum of t he feet and toes. There were no ulc erations. Signed By: <Electronically signed by Joey Pennington MD> 02/28/22616 Created:02/28/22 06 The status of this report isSigned. Draft = Not yet reviewed or approved by Medical Physician. Signed = Reviewed and approved by Medical Physician.
[~2022-08-22 05:45] MED LIST: CEFAZOLIN 2,000 MG/15 ML SYR IV SCH; LACTATED RINGER'S 1,000 ML IV SCH
[2022-08-22] MEDS ORDERED: LACTATED RINGER'S 1,000 ML IV SCH (06:00)
[2022-08-22] MEDS ORDERED: CEFAZOLIN 2,000 MG/15 ML SYR IV SCH (06:00)
[2022-08-22] MEDS ORDERED: ALBUMIN HUMAN 5% 12.5 GM/250 ML VIAL IV ONE (06:47)
[2022-08-22] MEDS ORDERED: ROCURONIUM BROMIDE 10 MG/ML 5 ML VIAL IV ONE ×3 (06:54→09:32)
[2022-08-22] MEDS ORDERED: SUCCINYLCHOLINE CHLORIDE 20 MG/ML 10 ML VIAL IV ONE (06:54)
[2022-08-22] MEDS ORDERED: ONDANSETRON INJ 2 MG/ML 2 ML VIAL ONE ×2 (06:54→10:37)
[2022-08-22] MEDS ORDERED: LIDOCAINE 2% 2 ML VIAL/AMP(20MG/ML) INFIL ONE (06:54)
[2022-08-22] MEDS ORDERED: PROPOFOL IV EMULSION 10 MG/ML 20 ML VIAL IV ONE (06:54)
[2022-08-22] MEDS ORDERED: fentaNYL citrate PF 100 MCG/2 ML VIAL ONE ×2 (06:55→08:52)
[2022-08-22] MEDS ORDERED: MIDAZOLAM HCL 1 MG/ML 2ML VIAL ONE (06:55)
[2022-08-22] MEDS ORDERED: HEPARIN SOD (PORCINE) 1000 UNIT/ML ONE (06:59)
--- NOTE | 2022-08-22 07:15 | History & Physical Bridge Note ---
Date of Service August 22, 2022 History & Physical Bridge Note I have examined the patient, reviewed the History & Physical and in the interval since the performance of the History & Physical I have noted the following changes of clinical significance: no changes noted
[2022-08-22] MEDS ORDERED: ceFAZolin 330 MG/ML 1 GM VIAL ONE (07:22)
[2022-08-22] MEDS ORDERED: GELATIN SPONGE SZ 100 ONE (07:22)
[2022-08-22] MEDS ORDERED: THROMBIN FOR SOLN 20000 UNIT KIT ONE (07:22)
[2022-08-22] MEDS ORDERED: HEPARIN (PORCINE) 1000 UNIT/ML 10 ML (CATH LAB USE ONLY) ONE (07:22)
--- NOTE | 2022-08-22 07:46 | Anesthesiology Consultation ---
Date of Service August 22, 2022 Assessment & Plan Chart Review Chart Review: Acceptable Risk for Surgery and Patient NOT seen in Pre Admission Testing Consults Requested none ASA ASA4 Proposed Anesthesia Anesthesia Type: General Anesthesia Line Insertion: Arterial line Risk / Benefits Reviewed With: PT / POA / Parent / Guardian, Accepts Plan and Informed Consent Obtained History Surgery Operation Date: 08/22/22 07:30 Proposed Procedures p Left Axillo-Bifemoral Bypass Graft - Joey Pennington MD Height/Weight Height: 5 ft 6 in Weight: 67.5 kg Allergies Allergy/AdvReac Type Severity Reaction Status Date / Time No Known Allergies Allergy Verified 08/22/22 06:35 Medications Home Medications Medication Instructions Recorded Confirmed Last Taken amlodipine 10 mg tablet 10 mg PO QAM 02/13/22 08/22/22 08/21/22 11:00 atorvastatin 80 mg tablet 80 mg PO PM 02/13/22 08/22/22 08/21/22 11:00 clopidogrel 75 mg tablet 75 mg PO QAM 02/13/22 08/22/22 08/14/22 pantoprazole 40 mg tablet,delayed 40 mg PO QAM 02/13/22 08/22/22 08/21/22 11:00 release ezetimibe 10 mg tablet 10 mg PO QAM 02/28/22 08/22/22 08/21/22 11:00 nitroglycerin 0.4 mg sublingual 0.4 mg sublingual UD PRN Chest Pain 02/28/22 08/22/22 06/12/22 09:00 tablet (Nitrostat) furosemide 20 mg tablet (Lasix) 20 mg PO QAM 05/12/22 08/22/22 08/21/22 11:00 potassium chloride 20 mEq 20 meq PO BID 05/25/22 08/22/22 08/21/22 22:30 tablet,extended release carvedilol 12.5 mg tablet (Coreg) 12.5 mg PO BID 08/22/22 08/22/22 08/21/22 22:30 Active Medications Generic Name Dose Route Start Last Admin Trade Name Freq PRN Reason Stop Dose Admin Lactated Ringer's 1,000 mls @ 80 mls/hr 08/22/22 06:00 08/22/22 06:25 Lr IV 08/22/22 18:29 80 mls/hr .[id number] [place] Administration NPO Date Last Intake of Fluids: 08/21/22 Time Last Intake of Fluids: 23:59 Date Last Intake of Solids: 08/21/22 Time Last Intake of Solids: 22:30 Past Medical History Medical History Bilateral pneumonia + pulmonary edema 02/2022 > f/u CXR 04/06/22 without evidence of focal consolidation CAD (coronary artery disease) 2014 > 1 stent 2017 ([facility]) > [address] Morin COPD (chronic obstructive pulmonary disease) "Stable" History of depression History of gastric ulcer 2012 History of GI bleed 2012 (ASA/gastric ulcer) History of myocardial infarction 2013 HLD (hyperlipidemia) HTN (hypertension) PAD (peripheral artery disease) severe Poor oral hygiene Following with [facility] Pt denies any abscess or infections currently, the front 2 teeth have been removed (05/23/22). Other teeth are in poor condition but are not loose at this time. Pulmonary nodules Stable since 2018, [facility] monitoring Sepsis 02/2022 (2/2 PNA), treated at [facility] > abx, blood cultures negative per discharge summary Exercise / Class Metabolic Activity III < 4 Walking/Shop/Light housework Past Family History Family History Other No family history of adverse response to anesthesia Past Surgical History Surgical History History of angioplasty of peripheral vessel bilateral legs History of cardiac catheterization 2013 > 1 stent 2017 ([facility]) > 2 stents 12/2021, [facility] no stents History of esophagogastroduodenoscopy (EGD) History of laparotomy x2 Aorta bifemoral bypass attempt converted to exploratory lap (abdominal exploration revealed abdominal distension, purulent drainage/abscess) 02/28/22: Grade 1 view, MAC#3, ETT 7.[address] [facility] History of revascularization procedure of lower extremity stents to BLLE (pt reports multiple procedures to open up his arteries in bilateral legs) S/P exploratory laparotomy 2013 ulcer perforation with repair at [facility] (Dr Maddox) Past Anesthesia History No Hx of Anesthesia Complications and No Family Hx of Anesthesia Complications History of PONV No Hx of PONV and No Hx of Motion Sickness Social History Smoking Status: Current every day smoker tobacco type: cigarettes Smoking cigarettes per day: 20 Do You Dip or Chew Tobacco: No Hx Alcohol Use: No Hx Substance Use: No substance use type: does not use Physical Exam Vital Signs Last Vital Signs Temp 36.6 C 08/22/22 06:29 Pulse 88 08/22/22 06:29 Resp 20 08/22/22 06:29 BP 147/83 H 08/22/22 06:56 Pulse Ox 97 08/22/22 06:29 O2 Del Method Room Air 08/22/22 06:29 Constitutional + acute distress; not cachectic ENMT Mouth: + dentition abnormality, + edentulous and + poor dentition Thyromental Distance: > or= 3.5 Finger Breadths Mallampati Class: II Neck normal visual inspection, trachea midline and + facial hair; neck extension not limited Respiratory normal respiratory effort and + uses accessory muscles Auscultation: + diminished lung sounds Cardiovascular Rate/Rhythm: regular rate and regular rhythm Heart Sounds: no murmur Vessels: no carotid bruit Musculoskeletal Spine: normal cervical ROM and no pain with cervical ROM Extremities: extremities normal to inspection; full ROM of extremities Neurologic moves all extremities Motor/Sensory: + sensory deficit Psychiatric Orientation: alert and oriented x 3 Testing Laboratory Results Blood Type O Positive 08/22/22 06:15 Antibody Screen NEGATIVE 08/22/22 06:15
[2022-08-22] MEDS ORDERED: SURGICEL ABSORB HEMOSTAT 2IN X 14IN TOP ONE (09:40)
[2022-08-22] MEDS ORDERED: DexMEDEtomidine HCL IV 100 MCG/ML VIAL IV ONE (10:26)
[2022-08-22] MEDS ORDERED: PROTAMINE SULFATE 10 MG/ML 5 ML VIAL IV ONE (10:32)
[2022-08-22] MEDS ORDERED: ePHEDrine sulfate 50 MG/ML SYR ONE (10:43)
[2022-08-22] MEDS ORDERED: SUGAMMADEX SODIUM 200 MG/2 ML VIAL IV ONE (10:50)
--- NOTE | 2022-08-22 11:30 | Operative Report ---
Post Operative Report Pre & Post Diagnosis Operation Date: 08/22/22 07:30 Pre-Op Diagnosis: Aortoiliac Occulsive Disease Post-Op Diagnosis: Aortoiliac Occulsive Disease I identified the patient and participated in the time-out.: Yes Procedure Operation Date: 08/22/22 07:30 Actual Procedures p Left Axillo-Bifemoral Bypass Graft(Left) - Joey Pennington MD Surgeon Joey Pennington MD Product Marketing Intern Rogelio,PAC Estimated Blood Loss 100 Findings Consistent with Post-Op Diagnosis Specimens none Anesthesia Type General Complications none Disposition Accompanied Patient To Recovery: No Disposition: Recovery Room Indications This is a 57-year-old gentleman who has a infrarenal aortic occlusion. We attempted aortobifemoral bypass on him in the past however he had significant adhesions and also 2 areas of what appeared to be purulent granulomas on the greater curvature of the stomach. These did have drainage. We therefore abandoned the procedure due to possible infected granulomas at that time. We then recommended an axillobifemoral bypass. He is agreeable to this. I have discussed the risks options and benefits of the procedure with the patient. The patient understands the risks options and benefits and agrees to the procedure. Description of Procedure The patient was taken to the operating room and placed in supine position. General anesthesia was accomplished. The left side of the chest clavicular area and groins were prepped and draped in a sterile manner as well as the left side of the abdomen. The patient was identified and a timeout was performed. A transverse incision was made infraclavicularly on the left side. This was carried down between the pec muscles. The axillary vein was identified. This was retracted superiorly. The axillary artery was identified and freed up for approximately 5 cm. It was soft and of good caliber. He did have a good pulse. We then did bilateral groin incisions. Both femoral arteries were then isolated. This was done from the common femoral artery at the inguinal ligament down to beyond the bifurcation. The common femoral artery profundofemoral artery and superficial femoral arteries on both sides were soft. At that point a counterincision was made in the left side of the lower abdomen. Using the tunneler a bifurcated axillofemoral bypass was passed from the counterincision up to the infraclavicular incision. Tunnels were then made from the counterincision down to the left groin and the right groin and the appropriate limb was passed. The patient was then heparinized at that time. After adequate position was accomplished the axillary artery was clamped proximal distally. A longitudinal arteriotomy was then made. The graft was then beveled and cut the appropriate length and end-to-side anastomosis was accomplished using a 5-0 Prolene suture. Once this was completed the x-ray was flushed out through the graft. A Anton clamp was then used to clamp the graft. There was good distal flow of the axillary artery beyond the anastomosis. We then planned a new anastomosis of the left groin first. The left common femoral, profundofemora, and superficial femoral arteries were clamped. Longitudinal arteriotomy was started on the distal common femoral artery and extended downward through the superficial femoral artery. The graft was then pulled the appropriate length that was beveled and trimmed and appropriate length in the usual fashion. The anastomosis was again overlie the origin of the profundofemoral artery. An end-to-side anastomosis was then accomplished between the graft and the common femoral artery using a 5-0 Prolene suture in the usual vascular fashion. Prior to completing the closure backbleeding forward bleeding was allowed to occur the final few sutures were then placed and securely tied. Anton clamp was then placed on the right limb of the graft and the graft unclamped going to the left groin. The common femoral artery was unclamped first followed by the profunda and finally the superficial femoral arteries. Added hemostasis was seen of the anastomosis. There was excellent Doppler signals heard distally to the greta stomosis. We then clamped the common femoral artery, profunda Femoral artery, and superficial femoral artery on the right side. The arteriotomy again was started on the distal common femoral artery as we did on the left and extended downward through the superficial femoral artery origin. Again the right limb of the graft over road the origin of the profundofemoral artery. The right limb of the graft was trimmed and beveled appropriate fashion and an end to side anastomosis was accomplished between the graft and the common femoral artery again using a 5-0 Prolene suture in usual vascular fashion. Prior to completing this closure backbleeding and forward bleeding was allowed to occur the final few sutures were placed and securely tied. Clamps were removed off the limb of the graft followed by the common femoral artery, profundofemoral artery and superficial femoral arteries. Excellent flow was heard by Doppler beyond the anastomosis in the right groin. Adequate hemostasis of both groins were then accomplished. After adequate hemostasis was accomplished these wounds were then closed in the usual fashion using running 2-0 Vicryl suture for the femoral sheath and a running 3-0 Vicryl suture for subcutaneous layer. [place] were used to close the skin edges. The counterincision was closed with a running layer of 3-0 Vicryl followed by familia. The infraclavicular incision was also closed with running 3-0 Vicryl followed by familia. Sterile dressings were applied to the infraclavicular and counterincision wounds. The groin incisions were covered with Prevena dressing. Excellent Doppler signals were heard in the feet in all 4 vessels the end of the procedure.The patient left the operation room in satisfactory condition and tolerated the procedure well. All needle and sponge counts were correct at the end of the procedure. Wanda Celestin Pac assisted due to lack of resident availability and was necessary for positioning, draping, retraction, wound closure deep layers, subcutaneous tissue, and skin closure and was necessary for assisting with the case. I attest to the content of the Intraoperative Record and any orders documented therein. Any exceptions are noted below.
[2022-08-22] MEDS ORDERED: HYDROmorphone INJ 1 MG/ML SYRINGE IV PRN (11:41)
[2022-08-22] MEDS ORDERED: FLUMAZENIL 0.1 MG/1 ML 10 ML VIAL IV PRN (11:41)
[2022-08-22] MEDS ORDERED: ONDANSETRON INJ 2 MG/ML 2 ML VIAL IV PRN (11:41)
[2022-08-22] MEDS ORDERED: LABETALOL HCL IV 5 MG/ML 20ML IV PRN (11:41)
[2022-08-22] MEDS ORDERED: ATROPINE SULFATE 0.1 MG/ML 10ML SYR IV PRN (11:41)
[2022-08-22] MEDS ORDERED: ePHEDrine sulfate 50 MG/ML AMP IV PRN (11:41)
[2022-08-22] MEDS ORDERED: fentaNYL citrate PF 100 MCG/2 ML VIAL IV PRN (11:41)
[2022-08-22] MEDS ORDERED: PROMETHAZINE HCL 12.5 MG in SODIUM CHLORIDE 0.9% 50 ML IV PRN (11:41)
[2022-08-22] MEDS ORDERED: NALOXONE HCL 0.4 MG/1 ML VIAL/CARP IV PRN (11:41)
--- NOTE | 2022-08-22 12:04 | Anesthesiology Progress Note ---
Date of Service August 22, 2022 Anesthesia Post Procedure Vital Signs Vital Signs: Temp Pulse Resp BP BP BP Pulse Ox 08/22/22 11:50 77 13 124/62 108/75 94 08/22/22 11:40 79 12 132/66 122/79 95 08/22/22 11:30 80 14 129/75 96 08/22/22 11:22 36.1 C L 81 15 185/92 H 122/85 99 08/22/22 06:56 147/83 H 143/85 H 08/22/22 06:29 36.6 C 88 20 155/89 H 97 O2 Del Method O2 Flow Rate 08/22/22 11:50 Oxymask 2 08/22/22 11:40 Oxymask 8 08/22/22 11:30 Oxymask 8 08/22/22 11:22 Oxymask 8 08/22/22 06:56 08/22/22 06:29 Room Air Transfer of Care Handoff Completed per policy Notes Mental Status: alert / awake / arousable Patient Amnestic to Procedure: Yes Nausea / Vomiting: adequately controlled Pain: adequately controlled Airway Patency, RR, SpO2: stable & adequate BP & HR: stable & adequate Hydration State: stable & adequate Anesthetic Complications: no major complications apparent
[2022-08-22] MEDS ORDERED: MoRPHine SULFATE 4 MG/ML 1 ML CARP\\VIAL IV PRN (12:37)
[2022-08-22] MEDS ORDERED: NITROGLYCERIN SL 0.4 MG/TAB TAB SL PRN (12:37)
[2022-08-22] MEDS: LACTATED RINGER'S 1,000 ML IV SCH ×2 (13:03→20:42)
[2022-08-22] MEDS: NICOTINE 21 MG/24 HR TDSY TD SCH (14:27)
[2022-08-22] MEDS: ceFAZolin 2000MG 2,000 MG/15 ML SYR IV SCH (16:53)
[2022-08-22] MEDS: carvediloL 12.5 MG TAB PO SCH (16:53)
[2022-08-22] MEDS: POTASSIUM CHLORIDE CRTAB 20 MEQ TABCR PO SCH (20:42)
[2022-08-22] MEDS: ATORVASTATIN 40 MG TAB PO SCH (20:42)
[2022-08-23] MEDS: ceFAZolin 2000MG 2,000 MG/15 ML SYR IV SCH (00:18)
[2022-08-23] MEDS: HYDROCODONE/ACETAMOPHEN 5/325MG TAB PO PRN ×2 (04:48→12:16)
[2022-08-23 05:06] LABS: Basophils # (auto) 0.03 K/uL (0-0.2); Basophils % (auto) 0.2 %; Hematocrit (blood only) 42.7 % (42.0-52.0); Hemoglobin 14.9 g/dl (14.0-18.0); Immature Granulocytes # (auto) 0.11 K/uL (0.01-0.20); Immature Granulocytes % (auto) 0.6 %; Lymphocytes % (auto) 12.2 %; Mean Corpuscular Hgb Conc 34.9 g/dL (32.0-36.0); Mean Corpuscular Volume 83.1 fL (80.0-100.0); Mean Platelet Volume 10.6 fL (9.4-12.4); Monocytes # (auto) 1.64 K/uL (0.11-0.59); Monocytes % (auto) 9.1 %; Neutrophils # (auto) 14.02 K/uL (1.40-6.50); Neutrophils % (auto) 77.9 %; Platelet Count 199 K/uL (130-400); RDW Coefficient of Variation 14.6 % (11.5-14.5); RDW Standard Deviation 44.1 fL (36.4-46.3); Red Blood Count 5.14 M/uL (4.70-6.10)
[2022-08-23 05:07] LABS: BUN Creatinine Ratio 12.8 (10-20); Calcium 7.8 mg/dl (8.6-10.3); Creatinine Clr Calc Pharmacy 77.3 ml/min; Est GFR (African American) 103.2 ml/min; Potassium 3.8 mmol/L (3.5-5.1)
[2022-08-23] MEDS: LACTATED RINGER'S 1,000 ML IV SCH (06:07)
[2022-08-23] MEDS: EZETIMIBE 10 MG TABLET PO SCH (08:22)
[2022-08-23] MEDS: FUROSEMIDE 20 MG TAB PO SCH (08:22)
[2022-08-23] MEDS: NICOTINE 21 MG/24 HR TDSY TD SCH (08:22)
[2022-08-23] MEDS: carvediloL 12.5 MG TAB PO SCH ×2 (08:22→17:31)
[2022-08-23] MEDS: amLODIPine BESYLATE 5 MG TAB PO SCH (08:22)
[2022-08-23] MEDS: PANTOprazole 40 MG TAB PO SCH (08:22)
[2022-08-23] MEDS: POTASSIUM CHLORIDE CRTAB 20 MEQ TABCR PO SCH ×2 (08:22→20:47)
--- NOTE | 2022-08-23 10:23 | Critical Care Consultation ---
Date of Consultation August 23, 2022 Assessment & Plan (1) Aortic occlusion: (2) COPD (chronic obstructive pulmonary disease): (3) CAD (coronary artery disease): (4) PUD (peptic ulcer disease): (5) HTN (hypertension): (6) Epiglottic lesion: Plan Patient is a 56 y/o male with PMHx of [place] in 2013 requiring 3 stents, COPD, depression, gastric ulcer w/ subsequent GI bleed, HLD, HTN, and PAD s/p bilateral LE stents s/p attempted ex lap for A2F bypass presented for axillary to femoral bypass bilaterally now POD1 from said procedure HDS and recovering appropriately. Reason critically ill: Patient requiring ICU level care for post-op monitoring Neuro: - Pt alert and oriented - CAM-ICU: negative - No concerns at this time Cardiac: - HTN with hx of [place] in 2013 s/p 3 stents per pt; takes lasix, amlodipine, statin, and clopidogrel at home - last echo (03/02/22) showed EF 55-60% w/ mild LVH - hx of significant PAD s/p BL LE stenting and attempted aortofemoral bypass - now POD1 from successful bypass Respiratory: Hx of COPD Stable on 2L oxymask. Continue home regimen GI: no concerns, tolerating PO Renal/electrolytes: Monitor and replete electrolytes as needed : Beebe catheter in place Endo: Follow ICU hyperglycemic protocols Heme: Stable Hgb and Hct, continue to monitor ID: Given cefazolin pre-op and x2 other doses Leukocytosis with neutrophilic predominance - likely in the setting of recent procedure, will trend Code status: full Dispo: ICU FENGI: Lines/IV access: peripheral IV DVT ppx: SCDs Supervising Physician Co-Signing Physician Notes Dr. Morrell was resident physician during care of patient. I separately evaluated patient for white portions of the history and the exam. I was present during the critical portion of medical decision making, and I discussed the case with the resident. I generally agree with the findings and plan. History of Present Illness Reason for Consultation: post-op care Requesting Physician: Dr. Pennington Attending Physician: Josep Vicente DO History of Present Illness 57 y/o male with a PMHx of significant PAD with previous stent placement (per patient) who presented to Dr. Pennington with worsening claudication symptoms, complete occlusion of distal aorta and bilateral iliac arteries with distal reconstitution with lesions that were unable to be crossed by angiography now POD1 axillary-femoral bypass bilaterally. [employer] Consultant was consulted for post- operative ICU level care. Symptoms started approximately 5 years ago with his RLE. Patient had a lesion stented at that time. Had been functioning well until a few months ago. He was having worsening claudication symptoms as well as numbness in the hips and thighs. Patient also having change in ambulatory tolerance. Decreased ability to walk more than 75 feet when on an incline. He is able to walk further on a flat surface. This is a significant decrease in activity level. Limiting his ADLs. Patient had an angiography with cards that was unable to gross the lesions. No pain at rest. No wounds/ulcers reported. Patient had a planned aortobifemoral bypass attempted in February 2022. At that time they found significant adhesions and signs of purulence internally and the procedure was abandoned. He has since recovered well from that hospital stay and is here for an axillary femoral bypass bilaterally with Dr. Pennington. On my interview, patient is post op and doing well. Minimal pain. No f/c/n/v/CP/SOB. Allergies Allergy/AdvReac Type Severity Reaction Status Date / Time No Known Allergies Allergy Verified 08/22/22 06:35 Home Medications Medication Instructions Recorded Confirmed Type amlodipine 10 mg tablet 10 mg PO QAM 02/13/22 08/22/22 History atorvastatin 80 mg tablet 80 mg PO PM 02/13/22 08/22/22 History clopidogrel 75 mg tablet 75 mg PO QAM 02/13/22 08/22/22 History pantoprazole 40 mg tablet,delayed 40 mg PO QAM 02/13/22 08/22/22 History release ezetimibe 10 mg tablet 10 mg PO QAM 02/28/22 08/22/22 History nitroglycerin 0.4 mg sublingual 0.4 mg sublingual UD PRN Chest Pain 02/28/22 08/22/22 History tablet (Nitrostat) furosemide 20 mg tablet (Lasix) 20 mg PO QAM 05/12/22 08/22/22 History potassium chloride 20 mEq 20 meq PO BID 05/25/22 08/22/22 History tablet,extended release carvedilol 12.5 mg tablet (Coreg) 12.5 mg PO BID 08/22/22 08/22/22 History Patient History Medical History Bilateral pneumonia + pulmonary edema 02/2022 > f/u CXR 04/06/22 without evidence of focal consolidation CAD (coronary artery disease) 2014 > 1 stent 2018 ([facility]) > [address] Morin COPD (chronic obstructive pulmonary disease) "Stable" History of depression History of gastric ulcer 2012 History of GI bleed 2012 (ASA/gastric ulcer) History of myocardial infarction 2013 HLD (hyperlipidemia) HTN (hypertension) PAD (peripheral artery disease) severe Poor oral hygiene Following with [facility] Pt denies any abscess or infections currently, the front 2 teeth have been removed (05/23/22). Other teeth are in poor condition but are not loose at this time. Pulmonary nodules Stable since 2018, [place] [facility] monitoring Sepsis 02/2022 (2 PNA), treated at [facility] > abx, blood cultures negative per justine ca summary Surgical History History of angioplasty of peripheral vessel bilateral legs History of cardiac catheterization 2013 > 1 stent 2017 ([facility]) > 2 stents 12/2021, ph [place]., no stents History of esophagogastroduodenoscopy (EGD) History of laparotomy x2 Aorta bifemoral bypass attempt converted to exploratory lap (abdominal exploration revealed abdominal distension, purulent drainage/abscess) 02/28/22: Grade 1 view, MAC#3, ETT 7.5 at [facility] History of revascularization procedure of lower extremity stents to BLLE (pt reports multiple procedures to open up his arteries in bilateral legs) S/P exploratory laparotomy 2013 ulcer perforation with repair at [facility] (Dr Maddox) Family History Other No family history of adverse response to anesthesia Social History Smoking Status: Current every day smoker Cigarettes Per Day: 20; Second Hand Exposure: No; Do You Dip or Chew Tobacco: No; Tobacco Cessation Education Requested by Patient: No Hx Alcohol Use: No Hx Substance Use: No Preferred Language: Nepalese Communication Ability: Effective Cell Stripper Final Required: No Beliefs That Will Affect Care: None Current Living Situation: Alone Other Information That Helps Us Care for You: No Feels Safe at Home: Yes Safety Concerns: Feels Safe At This Time Assistive Devices: None Review of Systems Review of Systems: See HPI Physical Exam Physical Exam: Gen; well appearing male in NAD HEENT: AT NC PERRL MMM Resp: CTAB no wheezing no increased work of breathing, on 2 L oxymask CV: RRR no m/r/g 2+ peripheral pulses Skin: wound left axilla and left groin c/d/i no strike through, drains in place bilaterally with coverings that are c/d/i Abd: soft, non-tender, non-distended MSK: no gross deformities Psych: appropriate mood and affect Neuro: alert and oriented : beebe in place Results & Data Results & Data Vital Signs (Past 12 Hours) Vital Signs Temp Pulse Pulse Resp BP BP Pulse Ox 08/23/22 07:54 08/23/22 06:00 99 H 15 102/57 L 91 08/23/22 05:00 99 H 16 122/80 91 08/23/22 04:00 37.3 C 102 H 18 115/77 94 08/23/22 03:00 101 H 18 118/79 91 08/23/22 02:00 103 H 19 113/66 92 08/22/22 23:59 08/23/22 01:00 96 H 15 113/66 94 08/23/22 00:00 36.9 C 94 H 19 113/65 94 08/22/22 23:00 96 H 17 106/76 93 Pulse Ox O2 Del Method O2 Del Method O2 Flow Rate O2 Flow Rate 08/23/22 07:54 Oxymask 2 08/23/22 06:00 Nasal Cannula 2 08/23/22 05:00 Nasal Cannula 2 08/23/22 04:00 Nasal Cannula 2 08/23/22 03:00 Nasal Cannula 2 08/23/22 02:00 Nasal Cannula 2 08/22/22 23:59 94 Nasal Cannula 2 08/23/22 01:00 Nasal Cannula 2 08/23/22 00:00 Nasal Cannula 2 08/22/22 23:00 Nasal Cannula 2 Laboratory Results 08/23/22 04:37 08/23/22 04:37 Resident Activity Tracking Resident Involvement: Resident Care Provided Care Provided: Adult Hospital Medicine
--- NOTE | 2022-08-23 11:55 | Surgery Progress Note ---
Date of Service August 23, 2022 Assessment & Plan (1) Aortic occlusion: Plan: POD #1 from axbifem bypass. Doing well. Need to increase activity and ambulate. Will transfer to floor and start PT/OT Admission and Anticipated Discharge Date Admission Date: August 22, 2022 Subjective Complains of groin and left sided abdominal wall and chest discomfort. Feet feel good. Physical Exam Constitutional: WD/WN, vitals as above Respiratory: normal respiratory effort and + respiratory distress Cardiovascular: Rate/Rhythm: regular rate and regular rhythm Vessels: dorsalis pedis pulses present and radial pulses present Extremities: normal capillary refill Gastrointestinal (Abdomen): Inspection/Auscultation: abdomen normal to inspection; abdomen not distended Percussion/Palpation: abdomen soft; abdomen nontender Skin: + incision (incision dry and clean. Prevenas in place in groins) Neurologic: CN's II-XI intact bilaterally and moves all extremities Psychiatric: Orientation: alert and oriented x 3 Results & Data Vital Signs (Past 12 Hours) Vital Signs Temp Pulse Pulse Resp BP BP Pulse Ox 08/23/22 07:54 08/23/22 06:00 99 H 15 102/57 L 91 08/23/22 05:00 99 H 16 122/80 91 08/23/22 04:00 37.3 C 102 H 18 115/77 94 08/23/22 03:00 101 H 18 118/79 91 08/23/22 02:00 103 H 19 113/66 92 08/22/22 23:59 08/23/22 01:00 96 H 15 113/66 94 08/23/22 00:00 36.9 C 94 H 19 113/65 94 Pulse Ox O2 Del Method O2 Del Method O2 Flow Rate O2 Flow Rate 08/23/22 07:54 Oxymask 2 08/23/22 06:00 Nasal Cannula 2 08/23/22 05:00 Nasal Cannula 2 08/23/22 04:00 Nasal Cannula 2 08/23/22 03:00 Nasal Cannula 2 08/23/22 02:00 Nasal Cannula 2 08/22/22 23:59 94 Nasal Cannula 2 08/23/22 01:00 Nasal Cannula 2 08/23/22 00:00 Nasal Cannula 2
[2022-08-23] MEDS: RIVAROXABAN 2.5 MG TAB PO SCH ×2 (13:17→20:48)
[2022-08-23] MEDS: CLOPIDOGREL BISULFATE 75 MG TAB PO SCH (13:17)
[2022-08-23] MEDS: DICLOFENAC SOD 1% GEL 100 GM TUBE EXT SCH ×2 (13:53→20:47)
[2022-08-23] MEDS: ATORVASTATIN 40 MG TAB PO SCH (20:47)
[2022-08-24] MEDS: HYDROCODONE/ACETAMOPHEN 5/325MG TAB PO PRN ×2 (08:49→12:51)
[2022-08-24] MEDS: POTASSIUM CHLORIDE CRTAB 20 MEQ TABCR PO SCH ×2 (08:50→21:42)
[2022-08-24] MEDS: DOCUSATE SODIUM 100 MG CAP PO SCH ×2 (08:50→21:41)
[2022-08-24] MEDS: RIVAROXABAN 2.5 MG TAB PO SCH ×2 (08:50→21:42)
[2022-08-24] MEDS: amLODIPine BESYLATE 5 MG TAB PO SCH (08:51)
[2022-08-24] MEDS: EZETIMIBE 10 MG TABLET PO SCH (08:51)
[2022-08-24] MEDS: CLOPIDOGREL BISULFATE 75 MG TAB PO SCH (08:51)
[2022-08-24] MEDS: FUROSEMIDE 20 MG TAB PO SCH (08:51)
[2022-08-24] MEDS: carvediloL 12.5 MG TAB PO SCH ×2 (08:52→15:59)
[2022-08-24] MEDS: PANTOprazole 40 MG TAB PO SCH (08:52)
[2022-08-24] MEDS: NICOTINE 21 MG/24 HR TDSY TD SCH (08:53)
[2022-08-24] MEDS: DICLOFENAC SOD 1% GEL 100 GM TUBE EXT SCH ×3 (08:53→21:43)
[2022-08-24] MEDS ORDERED: FUROSEMIDE INJ 20 MG/2 ML VIAL IV ONE (14:33)
--- NOTE | 2022-08-24 14:33 | Surgery Progress Note ---
Date of Service August 24, 2022 Assessment & Plan (1) Aortic occlusion: Plan: POD #2 from axbifem bypass. Doing well. Need to increase activity and ambulate. Will do a gentle diuresis. Admission and Anticipated Discharge Date Admission Date: August 22, 2022 Subjective Patient complains of groin discomfort only. Not taking IV pain meds. He is ambulating Physical Exam Constitutional: WD/WN, vitals as above Respiratory: normal respiratory effort; no respiratory distress Auscultation: + diminished lung sounds (bases) Cardiovascular: Rate/Rhythm: regular rate and regular rhythm Musculoskeletal: no cyanosis or clubbing, extremities motor strength 5/5 Skin: + incision (dry and clean, prevena dressings in groins) Neurologic: moves all extremities Psychiatric: Orientation: alert and oriented x 3 Results & Data Vital Signs (Past 12 Hours) Vital Signs Temp Pulse Resp BP Pulse Ox O2 Del Method O2 Del Method 08/24/22 08:00 Oxymask 08/24/22 07:40 36.9 C 79 18 127/80 91 Oxymask 08/24/22 06:32 36.9 C 112 H 18 119/72 91 Oxymask O2 Flow Rate O2 Flow Rate 08/24/22 08:00 2 08/24/22 07:40 2 08/24/22 06:32 1
[2022-08-24] MEDS: ATORVASTATIN 40 MG TAB PO SCH (21:41)
[2022-08-25] MEDS: DOCUSATE SODIUM 100 MG CAP PO SCH ×2 (08:05→21:27)
[2022-08-25] MEDS: FUROSEMIDE 20 MG TAB PO SCH (08:05)
[2022-08-25] MEDS: EZETIMIBE 10 MG TABLET PO SCH (08:05)
[2022-08-25] MEDS: amLODIPine BESYLATE 5 MG TAB PO SCH (08:05)
[2022-08-25] MEDS: RIVAROXABAN 2.5 MG TAB PO SCH ×2 (08:05→21:27)
[2022-08-25] MEDS: CLOPIDOGREL BISULFATE 75 MG TAB PO SCH (08:05)
[2022-08-25] MEDS: PANTOprazole 40 MG TAB PO SCH (08:06)
[2022-08-25] MEDS: NICOTINE 21 MG/24 HR TDSY TD SCH (08:06)
[2022-08-25] MEDS: carvediloL 12.5 MG TAB PO SCH ×2 (08:06→17:02)
[2022-08-25] MEDS: DICLOFENAC SOD 1% GEL 100 GM TUBE EXT SCH ×3 (08:07→21:28)
[2022-08-25] MEDS: POTASSIUM CHLORIDE CRTAB 20 MEQ TABCR PO SCH ×2 (08:09→21:27)
[2022-08-25 08:15] LABS: Basophils # (auto) 0.02 K/uL (0-0.2); Basophils % (auto) 0.1 %; Eosinophils # (auto) 0.04 K/uL (0-0.50); Eosinophils % (auto) 0.2 %; Hematocrit (blood only) 40.3 % (42.0-52.0); Hemoglobin 13.8 g/dl (14.0-18.0); Immature Granulocytes # (auto) 0.13 K/uL (0.01-0.20); Immature Granulocytes % (auto) 0.8 %; Lymphocytes # (auto) 1.62 K/uL (1.2-3.4); Lymphocytes % (auto) 9.4 %; Mean Corpuscular Hemoglobin 28.8 pg (25.0-34.0); Mean Corpuscular Hgb Conc 34.2 g/dL (32.0-36.0); Mean Corpuscular Volume 84.1 fL (80.0-100.0); Mean Platelet Volume 10.6 fL (9.4-12.4); Neutrophils # (auto) 14.25 K/uL (1.40-6.50); Neutrophils % (auto) 82.5 %; Platelet Count 176 K/uL (130-400); RDW Coefficient of Variation 14.4 % (11.5-14.5); RDW Standard Deviation 43.9 fL (36.4-46.3); Red Blood Count 4.79 M/uL (4.70-6.10); White Blood Count 17.26 K/ul (4.8-10.8)
[2022-08-25 08:30] LABS: Calcium 8.3 mg/dl (8.6-10.3); Creatinine Clr Calc Pharmacy 72.7 ml/min; Est GFR (African American) 95.7 ml/min; Est GFR (Non-African American) 82.6 ml/min; Potassium 3.4 mmol/L (3.5-5.1)
--- NOTE | 2022-08-25 09:43 | Surgery Progress Note ---
Date of Service August 25, 2022 Assessment & Plan (1) Aortic occlusion: Plan: POD #3 from axbifem bypass. Doing well overall, but still having significant O2 requirements and basilar crackles. Need to increase activity and ambulate. Encouraged incentive spirometry. Pt was diuresed yesterday, without any significant improvement in oxygenation. Labs as expected. Will order CXR today to eval. Admission and Anticipated Discharge Date Admission Date: August 22, 2022 Subjective 57 yo m POD #3 after L sided axillary bifemoral bypass, seen in f/u today. Pt states overall feeling ok, just tired. Has been OOB ambulating and to chair, but is currently in bed. Denies feeling SOB, but RN states pt O2 sats are 80% on RA. Currently on 2L via oxymask. Admits pain in incisions, but none in feet. No N/V or cp or other complaints. Review of Systems Review of Systems: All systems reviewed & are unremarkable except as noted in HPI & below Physical Exam Constitutional: WD/WN, vitals as above Respiratory: normal respiratory effort; no respiratory distress Auscultation: + diminished lung sounds (bases) and + crackles Cardiovascular: Rate/Rhythm: regular rate and regular rhythm Vessels: dorsalis pedis pulses present and radial pulses present Extremities: normal capillary refill Gastrointestinal (Abdomen): Inspection/Auscultation: abdomen normal to inspection; abdomen not distended Percussion/Palpation: abdomen soft; abdomen nontender Musculoskeletal: no cyanosis or clubbing, extremities motor strength 5/5 Skin: + incision (dry and clean, prevena dressings in groins) Neurologic: CN's II-XI intact bilaterally and moves all extremities Psychiatric: Orientation: alert and oriented x 3 Results & Data Vital Signs (Past 12 Hours) Vital Signs Temp Pulse Resp BP BP Pulse Ox Pulse Ox 08/25/22 09:35 90 08/25/22 08:00 08/25/22 08:00 80 L 08/25/22 07:30 36.8 C 57 L 18 130/82 91 08/24/22 22:31 36.6 C 90 18 126/79 94 O2 Del Method O2 Del Method O2 Flow Rate O2 Flow Rate 08/25/22 09:35 Oxymask 2 08/25/22 08:00 Oxymask 2 08/25/22 08:00 Room Air 08/25/22 07:30 Room Air 08/24/22 22:31 Oxymask
--- NOTE | 2022-08-25 10:37 | XRay Report ---
XR chest 2V PA/lateral CLINICAL HISTORY: cough TECHNIQUE: 2 views of the chest were obtained. Comparison: Comparison is made to chest radiograph 03/07/2022 FINDINGS: Surgical familia project over the left upper chest. The cardiomediastinal silhouette is normal. Lungs are underinflated but clear. No evidence of pleural effusion or pneumothorax. IMPRESSION: Atelectasis is seen without evidence of pneumonia. ACT 112: Negative or not required by law. Electronically signed by: Shaq Ireland M.D. 08/25/2022 10:36 AM
[2022-08-25] MEDS: HYDROCODONE/ACETAMOPHEN 5/325MG TAB PO PRN (14:09)
[2022-08-25] MEDS: ATORVASTATIN 40 MG TAB PO SCH (21:26)
[2022-08-26] MEDS: FUROSEMIDE 20 MG TAB PO SCH (07:46)
[2022-08-26] MEDS: CLOPIDOGREL BISULFATE 75 MG TAB PO SCH (07:47)
[2022-08-26] MEDS: EZETIMIBE 10 MG TABLET PO SCH (07:47)
[2022-08-26] MEDS: amLODIPine BESYLATE 5 MG TAB PO SCH (07:47)
[2022-08-26] MEDS: PANTOprazole 40 MG TAB PO SCH (07:47)
[2022-08-26] MEDS: NICOTINE 21 MG/24 HR TDSY TD SCH (07:47)
[2022-08-26] MEDS: carvediloL 12.5 MG TAB PO SCH (07:48)
[2022-08-26] MEDS: DOCUSATE SODIUM 100 MG CAP PO SCH (07:48)
[2022-08-26] MEDS: RIVAROXABAN 2.5 MG TAB PO SCH (07:48)
[2022-08-26] MEDS: DICLOFENAC SOD 1% GEL 100 GM TUBE EXT SCH (07:48)
[2022-08-26] MEDS: POTASSIUM CHLORIDE CRTAB 20 MEQ TABCR PO SCH (07:49)
--- NOTE | 2022-08-26 08:42 | Surgery Progress Note ---
Date of Service August 26, 2022 Assessment & Plan (1) Aortic occlusion: Plan: POD #4 from axbifem bypass. Off oxygen and saturating adequately. Able to ambulate without difficulty. Will plan on D/C today. Admission and Anticipated Discharge Date Admission Date: August 22, 2022 Subjective 57 yo m POD #3 after L sided axillary bifemoral bypass, seen in f/u today. He is ambulating around the unit. Able to get out of bed without difficulty. Denies any SOB on room air Physical Exam Constitutional: WD/WN, vitals as above Respiratory: normal respiratory effort and + respiratory distress pulse ox 95 on room air today Cardiovascular: Rate/Rhythm: regular rate and regular rhythm Vessels: dorsalis pedis pulses present Extremities: normal capillary refill Gastrointestinal (Abdomen): Inspection/Auscultation: abdomen normal to inspection Percussion/Palpation: abdomen nontender Musculoskeletal: no cyanosis or clubbing, extremities motor strength 5/5 Skin: + incision (prevenas in place. other wounds dry and clean) Neurologic: CN's II-XI intact bilaterally and moves all extremities Results & Data Vital Signs (Past 12 Hours) Vital Signs Temp Pulse Resp BP Pulse Ox O2 Del Method O2 Flow Rate 08/26/22 08:23 36.7 C 90 18 117/75 95 Room Air 08/26/22 08:09 Oxymask 2 08/25/22 22:00 36.9 C 90 18 121/75 96 Oxymask
--- NOTE | 2022-08-31 08:39 | Discharge Summary ---
Date of Service August 31, 2022 Admission HPI Per Admitting Provider Mr. Saha is a middle-aged male who presents for aortoiliac occlusive disease. Patient states that he has been aware of significant arterial disease since 2018, at which time he underwent angiography with [employer] somewhere in his right lower extremity. Records of this are not available. He states he was able to function after this until earlier this year when he began to notice worsening claudication symptoms particularly in his hips and thighs, as well as numbness. He states at this point on an incline he is only able to walk about 75 feet, and is able to walk further on a flat surface. He finds that this is extremely limiting for his activity level. 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 He was noted to have complete occlusion of his distal aorta and bilateral iliac arteries, with distal reconstitution. Patient denies rest pain in his feet and toes, as well as any ulcerations or nonhealing wounds on his feet.He underwent and ex lap for a planned AF2 but was found to have significant adhesions and areas on the stomach wall which appeared to be purulent. The procedure was abandoned at that time due to the possibility of infection. He is now admitted for an Ax bifem bypass. He denies fever, recent illness, headache, dizziness, chest pain, shortness of breath, abdominal pain, nausea, vomiting, other complaints. Admission Exam Per Admitting Provider Constitutional: In general patient i s a healthy-appear ing well-nourished well-developed mi ddle-aged male no distress. Is aler t and oriented wit hout any focal def icits. His head i s normocephalic an d atraumatic. His carotids do not d emonstrate a bruit . His heart is re gular, his lungs a re decreased but c lear with coarse b reath sounds. His abdomen is protub erant due to body habitus, but is fi rm and nontender. His brachial and radial pulses are +3. His femoral p ulses are nonpalpa ble, his lower ext remity distal puls es are also nonpal pable. He has cap illary refill to t he toes at 5 to 6 seconds, with cont inued hair growth on the dorsum of t he feet and toes. There were no ulc erations. Principal Diagnosis 1. s/p L axillo-bifemoral bypass 2. Aortoiliac occlusive disease Discharge Exam Constitutional WD/WN, vitals as above Respiratory normal respiratory effort; no respiratory distress Auscultation: + diminished lung sounds (bases) and + crackles Cardiovascular Rate/Rhythm: regular rate and regular rhythm Vessels: dorsalis pedis pulses present and radial pulses present Extremities: normal capillary refill Gastrointestinal (Abdomen) Inspection/Auscultation: abdomen normal to inspection; abdomen not distended Percussion/Palpation: abdomen soft; abdomen nontender Musculoskeletal no cyanosis or clubbing, extremities motor strength 5/5 Skin + incision (dry and clean, prevena dressings in groins) Neurologic CN's II-XI intact bilaterally and moves all extremities Psychiatric Orientation: alert and oriented x 3 Discharge Data Allergies Allergy/AdvReac Type Severity Reaction Status Date / Time No Known Allergies Allergy Verified 08/22/22 06:35 Consultations 08/23/22 10:43 Consult Boat Mechanic Routine Procedures Performed Operation Date: 08/22/22 07:30 Actual Procedures p Left Axillo-Bifemoral Bypass Graft(Left) - Joey Pennington MD Hospital Course (1) Aortic occlusion: Pt doing well POD #4 after axillo bifemoral BPG. D/C home Total Time Total Time Spent Total Time Spent (In Minutes): 0 Discharge Plan Discharge Items Patient Disposition: Home - Self-Care Reason For Visit: INFRARENAL AORTIC OCCLUSION Discharge Diagnosis: Infrarenal aortic occlusion Activity: Per Instructions section Lifting: Gradually increase as tolerated Non-emergency contact: Surgeon Call non-emergency contact if: your temperature is above 101.5, your wound has increased redness, your wound has increased drainage and your wound pain has increased Follow-up/Referrals: Neelam Restrepo PA-C [Primary Care Provider] - Diet: Heart Healthy Addtl Attending Provider Instructions: ACTIVITY RECOMMENDATIONS: Leave groin dressings in place until Sunday or until the foam looses its suction. May remove at that time. After dressings are off, may shower. No tub baths. SPECIAL CARE INSTRUCTIONS: Call your doctor if: * Temperature above 101 degrees * Pain not relieved by pain medicine ordered * There is increased drainage or redness from any incision * You have any unanswered questions or concerns. Call [phone] to schedule a follow up appointment if one not already scheduled. Stand-Alone Forms: My [facility], Pain - Opioid Pain Management, Smoking Cessation Medications and DC Order Prescriptions: New hydrocodone-acetaminophen 5-325 mg Tablet 1 tab PO Q4H PRN (Reason: pain) Qty: 30 0RF Xarelto 2.5 mg Tablet 2.5 mg PO BID Qty: 60 11RF Continued furosemide [Lasix] 20 mg tablet 20 mg PO QAM potassium chloride 20 mEq Tablet Extended Release 20 meq PO BID atorvastatin 80 mg Tablet 80 mg PO PM clopidogrel 75 mg Tablet 75 mg PO QAM amlodipine 10 mg Tablet 10 mg PO QAM pantoprazole 40 mg Tablet,Delayed Release (Dr/Ec) 40 mg PO QAM nitroglycerin [Nitrostat] 0.4 mg Tablet, Sublingual 0.4 mg sublingual UD PRN (Reason: Chest Pain) ezetimibe 10 mg Tablet 10 mg PO QAM carvedilol [Coreg] 12.5 mg tablet 12.5 mg PO BID Rx Instructions: must administer with a meal/food Discharge Orders: Discharge Order (Routine); Ordered 08/26/22 Ordered By: Joey Garcia/Other Patient Handouts: Anticoagulants Admission Data Admit Date/Time: 08/22/22 07:15 Attending Provider: Joey Pennington Admit Provider: Joey Pennington Primary Care Provider: Neelam Restrepo Other Providers: Orlando Evans ; Josep Vicente ; Benjamin Carr ; Eyad Trevino ; Elias Larson ; Cristobal Mcpherson ; Beulah Mcdonald ; Scott Chand ; Tari Berg ; Richie Dodd Other Interventions: Discharge Summary Assessment (RN) Last Done: 08/26/22 11:36
== END 2022-08-26 13:25 | disposition home or self-care (01) | DRG 254 ==
LOC: ASU 05:45 → 1E 07:15 → 3W 08-23 15:33